=== PATIENT | male | born 1960 | race Caucasian/White ===

== ENCOUNTER 2018-02-23 05:24 | Observation (INO) | payer OTHER ==
--- NOTE | 2018-02-23 06:05 | PDOC ---
History of Present Illness - General Chief Complaint: Pain Stated Complaint: BACK PAIN Time Seen by Provider: 02/23/18 05:28 History Source: Patient - History of Present Illness Initial Comments: 02/23/18 05:47 57 year old male released from [facility] one month ago reports now without any of his medication. patient is requesting a refill of all his medication and social work help in getting his medications. as per patient insurance denied refill. patient reports that he has generalized jointpain , b/ l toenail infection. patient reports that he called Dr. Reyes for medication refill and was advised to come to the office today for social work evaluation, Patient decided to come to ED for evaluation. PMD: Karen Reyes Past History - Past Medical History Allergies/Adverse Reactions: Allergies Allergy/AdvReac Type Severity Reaction Status Date / Time No Known Allergies Allergy Verified 02/23/18 05:30 Home Medications: Ambulatory Orders Aspirin 81 mg PO DAILY 02/23/18 Atorvastatin Ca [Lipitor] 20 mg PO HS 02/23/18 Buprenorphine HCl [Belbuca] 150 mcg PO BID 02/23/18 Cetirizine HCl [Zyrtec -] 10 mg PO DAILY 02/23/18 Ergocalciferol [Vitamin D2] 50,000 unit PO Q7D@1000 02/23/18 Fluticasone Propionate [Flonase Allergy Relief] 2 spr NS DAILY 02/23/18 Humulin R U-500 Kwikpen 0 unit SUBD ASDIR 02/23/18 Insulin Glargine,Hum.rec.anlog [Basaglar Kwikpen U-100] 5 unit SQ HS 02/23/18 Turmeric/Turmeric Root Extract [Turmeric 500 mg Capsule] 500 mg PO QID 02/23/18 Atorvastatin Ca [Lipitor] 20 mg PO HS #30 tablet 02/24/18 Carbidopa/Levodopa *Cr* 25/100 [Sinemet *Cr* 25/100 -] 1 combo PO TID #120 tablet.er 02/24/18 Divalproex [Depakote -] 2,000 mg PO HS #30 tablet.ec 02/24/18 Docusate Sodium [Colace -] 300 mg PO HS #60 capsule 02/24/18 Metformin HCl [Glucophage] 500 mg PO BID #60 tablet 02/24/18 Quetiapine Fumarate [Seroquel -] 25 mg PO HS #30 tablet 02/24/18 Quinapril HCl [Accupril -] 20 mg PO BID #30 tablet 02/24/18 Trazodone HCl 100 mg PO HS #30 tablet 02/24/18 propRANOLol HCL [Inderal -] 20 mg PO BID #60 tablet 02/24/18 COPD: No Diabetes: Yes HTN: Yes Hypercholesterolemia: Yes Psychiatric Problems: Yes (bipolar disorder) Other medical history: parkinson's disease - Suicide/Smoking/Psychosocial Hx Smoking History: Never smoked Hx Alcohol Use: No (ETOH ) Drug/Substance Use Hx: No (crack ) Review of Systems - Review of Systems Able to Perform ROS?: Yes Is the patient limited Irish proficient: No Constitutional: No: Symptoms Reported, See HPI, Chills, Diaphoresis, Fever, Loss of Appetite, Malaise, Night Sweats, Weakness, Weight Stable, Unintentional Wgt. Loss, Unexplained wgt Loss, Other Musculoskeletal: Yes: Joint Pain (generalized) *Physical Exam - Vital Signs Last Vital Signs Temp Pulse Resp BP Pulse Ox 98.4 F 88 16 154/81 97 02/23/18 05:31 02/23/18 05:31 02/23/18 05:31 02/23/18 05:31 02/23/18 05:31 - Physical Exam General Appearance: Yes: Appropriately Dressed, Other (flighted thoughts) Respiratory/Chest: positive: Lungs Clear, Normal Breath Sounds Cardiovascular: positive: Regular Rhythm, Regular Rate Gastrointestinal/Abdominal: positive: Normal Bowel Sounds, Soft Musculoskeletal: positive: Normal Inspection, Other (able to weightbear without difficulty). negative: Vertebral Tenderness Extremity: positive: Normal Capillary Refill, Normal Inspection, Normal Range of Motion, Other (+ dark colored nails. ) Integumentary: positive: Normal Color, Dry, Warm Neurologic: positive: Fully Oriented, Alert ED Treatment Course - LABORATORY CBC & Chemistry Diagram: 02/24/18 06:00 02/24/18 06:00 Medical Decision Making - Medical Decision Making 02/23/18 06:26 A: medication refill P: pending social work evaluation patient signed out to [facility] *DC/Admit/Observation/Transfer Diagnosis at time of Disposition: Medication refill, Confusion Joint pain Qualifiers: Joint pain location: hip Laterality: unspecified laterality Qualified Code(s): M25.559 - Pain in unspecified hip Falls Qualifiers: Encounter type: initial encounter Qualified Code(s): W19.XXXA - Unspecified fall, initial encounter Chest pain Qualifiers: Chest pain type: unspecified Qualified Code(s): R07.9 - Chest pain, unspecified - Discharge Dispostion Disposition: HOME Condition at time of disposition: Stable - Prescriptions - Referrals - Patient Instructions - Post Discharge Activity
[2018-02-23] MEDS ORDERED: INSULIN REGULAR HUMAN 100 UNITS/ML *VIAL SQ ONE ×2 (06:32→11:12)
[2018-02-23] MEDS ORDERED: INSULIN REGULAR HUMAN 100 UNITS/ML *VIAL ONE ×2 (06:36→13:23)
--- NOTE | 2018-02-23 06:56 | PDOC ---
*Physical Exam - Vital Signs Last Vital Signs Temp Pulse Resp BP Pulse Ox 98.4 F 88 16 154/81 97 02/23/18 05:31 02/23/18 05:31 02/23/18 05:31 02/23/18 05:31 02/23/18 05:31 ED Treatment Course - ADDITIONAL ORDERS Additional order review: Laboratory Results 02/23/18 06:31 POC Glucometer [id number] 02/23/18 06:31 POC Glucometer [id number] - Medications Given in the ED: ED Medications Discontinued Medications Generic Name Dose Route Start Last Admin Trade Name Freq PRN Reason Stop Dose Admin Insulin Human Regular 4 units 02/23/18 06:32 02/23/18 06:38 Novolin R Vial *For Ivpush Or Iv Drip Only* SQ 02/23/18 06:33 4 units ONCE ONE Administration Medical Decision Making - Medical Decision Making 02/23/18 06:55 agree with care from GERSON Drummond *DC/Admit/Observation/Transfer Diagnosis at time of Disposition: Medication refill Joint pain Qualifiers: Joint pain location: hip Laterality: unspecified laterality Qualified Code(s): M25.559 - Pain in unspecified hip - Referrals Referrals: Karen Reyes MD [Primary Care Provider] - - Patient Instructions - Post Discharge Activity
--- NOTE | 2018-02-23 06:58 | PDOC ---
*Physical Exam - Vital Signs Last Vital Signs Temp Pulse Resp BP Pulse Ox 98.4 F 88 16 154/81 97 02/23/18 05:31 02/23/18 05:31 02/23/18 05:31 02/23/18 05:31 02/23/18 05:31 ED Treatment Course - LABORATORY CBC & Chemistry Diagram: 02/23/18 09:30 02/23/18 09:30 - ADDITIONAL ORDERS Additional order review: Laboratory Results 02/23/18 06:31 POC Glucometer [id number] 02/23/18 06:31 POC Glucometer 223.14582 - Medications Given in the ED: ED Medications Discontinued Medications Generic Name Dose Route Start Last Admin Trade Name Freq PRN Reason Stop Dose Admin Insulin Human Regular 4 units 02/23/18 06:32 02/23/18 06:38 Novolin R Vial *For Ivpush Or Iv Drip Only* SQ 02/23/18 06:33 4 units ONCE ONE Administration Medical Decision Making - Medical Decision Making 02/23/18 07:02 Sign out received from Kaylin Drummond NP. Pt comes from home stating that he has generalized pain and is out of all of his home medications. He states he was released from [facility] on 02/14/18 and they were supposed to refill his medication for longer than they did. States he won't be able to get a refill until 03/01/18 as insurance will not cover the new scripts. [facility] [employer]. 02/23/18 09:41 Spoke with pharmacist at [facility]. States that he picked up his Trazadone, Accupril, Buproprion, and propranolol and all were for written for 14 days. Also states that his Divalproex, Seroquil and humalin were refilled and picked up by another pharmacy. The pharmacist says even if we are to re- fill his medication insurance will not cover it as it is not time to pick it up yet. Will contact pts PCP for further information. 02/23/18 09:51 Pt. states he now has throbbing chest pain. Orders placed. Also complaining of headache. Tylenol given. Spoke with patient about possibly using another pharmacy. Pt. states he also uses [facility] for his mail away rx's. States that he doesn't think he received anything from them and also states that he had a recent change in address and is not sure if his mail is being forwarded correctly. 02/23/18 10:[address] Karen Reyes, pt. PCP. States that he is usually able to manage his home medications and seems confused to him. They have spoken multiple times on the phone yesterday and today. He also reports patient is falling at home which he has not done since before his rehab stint. He is concerned that he is altered and would like the patient placed in observation for neurology consult and social work issues. Pt. is newly diagnosed with Parkingson's. Added head CT to work up. At this time I suspect pt is confused about how to take his home medications and that he may be taking them incorrectly. 02/23/18 11:26 EKG: Rate 71, Sinus Rhythm. Incomplete RBBB, Normal intervals. No acute ST-T wave changes. Incomplete RBBB is new 02/23/18 13:[address] with microischemic changes , no acute pathology Lab work is unremarkable with the exception of an elevated blood glucose in the 200's. Insulin sliding scale given to cover Hospitalist paged for obs placement. 02/23/18 14:06 Spoke with Rita Marquis NP. Case discussed and will accept pt. to tele obs. *DC/Admit/Observation/Transfer Diagnosis at time of Disposition: Medication refill, Confusion Joint pain Qualifiers: Joint pain location: hip Laterality: unspecified laterality Qualified Code(s): M25.559 - Pain in unspecified hip Falls Qualifiers: Encounter type: initial encounter Qualified Code(s): W19.XXXA - Unspecified fall, initial encounter Chest pain Qualifiers: Chest pain type: unspecified Qualified Code(s): R07.9 - Chest pain, unspecified - Discharge Dispostion Condition at time of disposition: Guarded Decision to Admit order: Yes - Referrals - Patient Instructions - Post Discharge Activity
[2018-02-23] MEDS ORDERED: ACETAMINOPHEN 325 MG TABLET (FP) PO ONE (09:51)
[2018-02-23] MEDS ORDERED: ACETAMINOPHEN 325 MG TABLET (FP) ONE (09:58)
[2018-02-23 10:27] LABS: BASO % 0.7 % (0-2.0); EOS % 1.1 % (0-4.5); HEMATOCRIT 39.8 % (35.4-49); HEMOGLOBIN 13.3 GM/dL (11.7-16.9); LYMPH % 22.3 % (8-40); MCH 29.8 pg (25.7-33.7); MCHC 33.4 g/dl (32.0-35.9); MEAN CELL VOLUME 89.4 fl (80-96); MEAN PLT VOLUME 10.3 fl (7.5-11.1); MONO % 11.6 % (3.8-10.2); NEUT % 64.3 % (42.8-82.8); PLATELET COUNT 264 K/MM3 (134-434); RBC 4.45 M/mm3 (4.00-5.60); WHITE BLOOD COUNT 8.1 K/mm3 (4.0-10.0)
[2018-02-23 10:45] LABS: INR 1.01 (0.82-1.09); PROTHROMBIN TIME (PATIENT) 11.4 SEC (9.7-13.0)
[2018-02-23 10:54] LABS: ALBUMIN 3.7 g/dl (3.4-5.0); ANION GAP 11 (8-16); BILIRUBIN,TOTAL 0.6 mg/dL (0.2-1.0); BLOOD UREA NITROGEN 17 mg/dL (7-18); CALCIUM 9.1 mg/dL (8.5-10.1); CHLORIDE 104 mmol/L (98-107); CO2 22 mmol/L (21-32); CREATININE 0.9 mg/dL (0.7-1.3); GLUCOSE,RANDOM 271 mg/dL (74-106); MAGNESIUM 1.8 mg/dL (1.8-2.4); POTASSIUM 4.4 mmol/L (3.5-5.1); SGOT/AST 6 U/L (15-37); SGPT/ALT 14 U/L (12-78); SODIUM 137 mmol/L (136-145)
[2018-02-23 10:58] LABS: ALK PHOS 71 U/L (45-117)
--- NOTE | 2018-02-23 11:55 | EKG ---
Test Reason : Blood Pressure : / mmHG Vent. Rate : 071 BPM Atrial Rate : 071 BPM P-R Int : 158 ms QRS Dur : 108 ms QT Int : 402 ms P-R-T Axes : 045 -22 019 degrees QTc Int : 436 ms NORMAL SINUS RHYTHM POSSIBLE LEFT ATRIAL ENLARGEMENT INCOMPLETE RIGHT BUNDLE BRANCH BLOCK BORDERLINE ECG NO PREVIOUS ECGS AVAILABLE Confirmed by ISAC ROYAL, ERUM ([id number]) on 02/23/2018 11:55:19 AM Referred By: Confirmed By:ERUM CHAU MD
--- NOTE | 2018-02-23 15:05 | HP ---
CHIEF COMPLAINT: chest pain, palpitations, confusion PCP: Dr. Karen Reyes, PCP HISTORY OF PRESENT ILLNESS: Patient is a 57 year old male with a significant past medical history of Parkinson Disease (recently diagnosed), high cholesterol, bipolar disorder, hypertension, diabetes and COPD. He presents to the ED today and was noted to have some confusion. He originally came to the ED over concern that his medications were not prescribed correctly from the rehab facility and had run out of medications. In the ED, patient's PCP was called and was concerned over patient's confusion. Patient was recently released from [facility]. Further, in the ED patient c/o of chest pain and palpitations and was found to have a RBBB on EKG. He was admitted for further observation. A CT scan of head done in the ED shows moderate atrophy and mild chronic microvascular ischemic disease changes. No gross evidence of a focal intracranial lesion or hemorrhage is seen. ER course was notable for: (1) negative trops (2) Head ct, mod atrophy (3) Recent Travel: denies PAST MEDICAL HISTORY: Parkinson Disease (recently diagnosed), high cholesterol , bipolar disorder, hypertension, diabetes and COPD. PAST SURGICAL HISTORY: Social History: Smoking: n/a Alcohol:n/a Drugs: n/a Family History: Allergies No Known Allergies Allergy (Verified 02/23/18 05:30) HOME MEDICATIONS: Home Medications Medication Instructions Recorded Aspirin 81 mg PO DAILY 02/23/18 Atorvastatin Ca [Lipitor] 20 mg PO HS 02/23/18 Atorvastatin Ca [Lipitor] 20 mg PO HS 02/23/18 Buprenorphine HCl [Belbuca] 150 mcg PO BID 02/23/18 Carbidopa/Levodopa *Cr* 25/100 1 combo PO TID 02/23/18 [Sinemet *Cr* 25/100 -] Cetirizine HCl [Zyrtec -] 10 mg PO DAILY 02/23/18 Cholecalciferol (Vitamin D3) 5,000 unit PO DAILY 02/23/18 [Vitamin D3] Divalproex Sodium [Divalproex 500 mg PO BID 02/23/18 Sodium ER] Divalproex [Depakote -] 2,000 mg PO HS 02/23/18 Docusate Sodium [Colace -] 300 mg PO HS 02/23/18 Ergocalciferol [Vitamin D2] 50,000 unit PO Q7D@1000 02/23/18 Fluticasone Propionate [Flonase 2 spr NS DAILY 02/23/18 Allergy Relief] Humulin R U-500 Kwikpen 0 unit SUBD ASDIR 02/23/18 Insulin Glargine,Hum.rec.anlog 5 unit SQ HS 02/23/18 [Basaglar Kwikpen U-100] Metformin HCl [Glucophage] 500 mg PO BID 02/23/18 Polyethylene Glycol 3350 [Miralax 17 gm PO DAILY 02/23/18 (For Daily Use) -] Quetiapine Fumarate [Seroquel -] 25 mg PO HS 02/23/18 Quinapril HCl [Accupril -] 20 mg PO BID 02/23/18 Trazodone HCl 100 mg PO HS 02/23/18 Turmeric/Turmeric Root Extract 500 mg PO QID 02/23/18 [Turmeric] propRANOLol HCL [Inderal] 20 mg PO BID 02/23/18 PHYSICAL EXAMINATION Vital Signs - 24 hr 02/23/18 05:31 Temperature 98.4 F Pulse Rate 88 Respiratory 16 Rate Blood Pressure 154/81 O2 Sat by Pulse 97 Oximetry (%) GENERAL: Awake, alert, and fully oriented, in no acute distress. HEAD: Normal with no signs of trauma. EYES: Pupils equal, round and reactive to light, extraocular movements intact, sclera anicteric, conjunctiva clear. No lid lag. EARS, NOSE, THROAT: Ears normal, nares patent, oropharynx clear without exudates. Moist mucous membranes. NECK: Normal range of motion, supple without lymphadenopathy, JVD, or masses. LUNGS: Breath sounds equal, clear to auscultation bilaterally. No wheezes, and no crackles. No accessory muscle use. HEART: Regular rate and rhythm ABDOMEN: Soft, nontender, not distended, normoactive bowel sounds, no guarding, no rebound, no masses. No hepatomegaly or splenomegaly. MUSCULOSKELETAL: Normal range of motion at all joints. No bony deformities or tenderness. No CVA tenderness. UPPER EXTREMITIES: 2+ pulses, warm, well-perfused. No cyanosis. No clubbing. No peripheral edema. LOWER EXTREMITIES: discolored toe nails, ambulates with RW, hx of parkinsons NEUROLOGICAL: hx of parkinsons PSYCHIATRIC: talkative, flight of ideas SKIN: Warm, dry, normal turgor, no rashes or lesions noted, normal capillary refill. Laboratory Results - last 24 hr 02/23/18 02/23/18 02/23/18 06:31 09:30 09:30 WBC 8.1 RBC 4.45 Hgb 13.3 Hct 39.8 MCV 89.4 MCH 29.8 MCHC 33.4 RDW 14.0 Plt Count 264 MPV 10.3 Neutrophils % 64.3 Lymphocytes % 22.3 Monocytes % 11.6 H Eosinophils % 1.1 Basophils % 0.7 PT with INR 11.40 INR 1.01 Sodium Potassium Chloride Carbon Dioxide Anion Gap BUN Creatinine Creat Clearance w eGFR POC Glucometer [id number] Random Glucose Calcium Magnesium Total Bilirubin AST ALT Alkaline Phosphatase Creatine Kinase Troponin I Total Protein Albumin 02/23/18 02/23/18 02/23/18 09:30 09:30 13:20 WBC RBC Hgb Hct MCV MCH MCHC RDW Plt Count MPV Neutrophils % Lymphocytes % Monocytes % Eosinophils % Basophils % PT with INR INR Sodium 137 Potassium 4.4 Chloride 104 Carbon Dioxide 22 Anion Gap 11 BUN 17 Creatinine 0.9 Creat Clearance w eGFR > 60 POC Glucometer 233.30250 Random Glucose 271 H Calcium 9.1 Magnesium 1.8 Total Bilirubin 0.6 AST 6 L ALT 14 Alkaline Phosphatase 71 Creatine Kinase 40 Cancelled Troponin I < 0.02 Cancelled Total Protein 7.0 Albumin 3.7 ASSESSMENT/PLAN: Patient is a 57 year old male with a significant past medical history of Parkinson Disease (recently diagnosed), high cholesterol, bipolar disorder, hypertension, diabetes and COPD. He presents to the ED today and was noted to have some confusion. He originally came to the ED over concern that his medications were not prescribed correctly from the rehab facility and had run out of medications. In the ED, patient's PCP was called and was concerned over patient's confusion. Patient was recently released from [facility]. Further, in the ED patient c/o of chest pain and palpitations and was found to have a RBBB on EKG. He was admitted for further observation. A CT scan of head done in the ED shows moderate atrophy and mild chronic microvascular ischemic disease changes. No gross evidence of a focal intracranial lesion or hemorrhage is seen. Neuro: Metabolic encephalopathy Mild confusion on admission, Head CT negative Mental status improved May be mis-managing home medications? Will repeat head CT in a.m. if confusion persists Neuro following On high doses of depakote Infectious workup ordered, BC, UC, UA WBC and vitals stable neuro following Parkinsons disease On Sinemet TID Ambulates with RW Cardiology: Chest pain EKG with new incomplete rbbb Trend troponins Echo Hypertension On saige inhibitor and Inderal F.E.N. fluids: PO adequate Electrolytes: daily labs Nutrition: diabetic diet Prophy: DVT: deferred, LOS < 48 hurs GI: deferred full code Hospitalist Screening - Colonoscopy Questionnaire Colonoscopy Questionnaire: Colonoscopy Questionnaire
--- NOTE | 2018-02-23 17:23 | CON.NEURO ---
Consult - History of Present Illness History of Present Illness: 57 year old male released from [facility] one month ago reports now without any of his medication. patient is requesting a refill of all his medication and social work help in getting his medications. as per patient insurance denied refill. patient reports that he has generalized joint, b/l toenail infection he states he has PD-- ? unclear who/when Dx-- he is adamant he has PD ; though very mild tremor and no cogwheeling. on multiple RX. - History Source History Provided By: Patient - Alcohol/Substance Use Hx Alcohol Use: No (ETOH '88) - Smoking History Smoking history: Never smoked Home Medications - Allergies Allergies/Adverse Reactions: Allergies Allergy/AdvReac Type Severity Reaction Status Date / Time No Known Allergies Allergy Verified 02/23/18 05:30 - Home Medications Home Medications: Ambulatory Orders Aspirin 81 mg PO DAILY 02/23/18 Atorvastatin Ca [Lipitor] 20 mg PO HS 02/23/18 Atorvastatin Ca [Lipitor] 20 mg PO HS 02/23/18 Buprenorphine HCl [Belbuca] 150 mcg PO BID 02/23/18 Carbidopa/Levodopa *Cr* 25/100 [Sinemet *Cr* 25/100 -] 1 combo PO TID 02/23/18 Cetirizine HCl [Zyrtec -] 10 mg PO DAILY 02/23/18 Cholecalciferol (Vitamin D3) [Vitamin D3] 5,000 unit PO DAILY 02/23/18 Divalproex Sodium [Divalproex Sodium ER] 500 mg PO BID 02/23/18 Divalproex [Depakote -] 2,000 mg PO HS 02/23/18 Docusate Sodium [Colace -] 300 mg PO HS 02/23/18 Ergocalciferol [Vitamin D2] 50,000 unit PO Q7D@1000 02/23/18 Fluticasone Propionate [Flonase Allergy Relief] 2 spr NS DAILY 02/23/18 Humulin R U-500 Kwikpen 0 unit SUBD ASDIR 02/23/18 Insulin Glargine,Hum.rec.anlog [Basaglar Kwikpen U-100] 5 unit SQ HS 02/23/18 Metformin HCl [Glucophage] 500 mg PO BID 02/23/18 Polyethylene Glycol 3350 [Miralax (For Daily Use) -] 17 gm PO DAILY 02/23/18 Quetiapine Fumarate [Seroquel -] 25 mg PO HS 02/23/18 Quinapril HCl [Accupril -] 20 mg PO BID 02/23/18 Trazodone HCl 100 mg PO HS 02/23/18 Turmeric/Turmeric Root Extract [Turmeric] 500 mg PO QID 02/23/18 propRANOLol HCL [Inderal] 20 mg PO BID 02/23/18 Physical Exam-Neuro Vital Signs: Vital Signs Temperature 98.2 F 02/23/18 15:31 Pulse Rate 95 H 02/23/18 15:31 Respiratory Rate 16 02/23/18 15:31 Blood Pressure 173/96 02/23/18 15:31 O2 Sat by Pulse Oximetry (%) 98 02/23/18 15:31 Constitutional: Yes: Well Nourished, No Distress Labs: CBC, BMP 02/23/18 09:30 02/23/18 09:30 INR, PTT INR 1.01 (0.82-1.09) 02/23/18 09:30 - Neuro Exam Level Of Consciousness: Yes: Alert (pressured, anxious and hyperverbose , mild tremo, no cogwheeling ) Assessment/Plan 57 year old male released from [facility] one month ago reports now without any of his medication. patient is requesting a refill of all his medication and social work help in getting his medications. as per patient insurance denied refill. patient reports that he has generalized joint, b/l toenail infection he states he has PD-- ? unclear who/when Dx-- he is adamant he has PD ; though very mild tremor and no cogwheeling. on multiple RX. suspect his tremor his RX related --depakote can commonly cause tremor (and he is taking a high dose ) he is adamant about getting his RX SINEMET--if absolutely necessary can continue dosing TID ; though his outpt doctor will have to eventually decide to continue or not. DR Crystal
[2018-02-23 18:00] VITALS: BMI 28.5
[2018-02-23] MEDS ORDERED: PNEUMOC 13-VAL CONJ-DIP CRM/PF 0.5 ML DISP.SYRIN IM ONE (18:00)
[2018-02-23] MEDS ORDERED: FLU VACCINE QUAD 60 MCG/0.5 ML (MDV 17-18) IM ONE (18:45)
[2018-02-23] MEDS ORDERED: PNEUMOCOCCAL 23 VACCINE 0.5 ML VIAL IM ONE (18:45)
[2018-02-23] MEDS ORDERED: traZODone HCL 50 MG TABLET (FP) ONE (21:10)
[2018-02-23] MEDS: QUINAPRIL HCL 20 MG TABLET (FP) PO SCH (21:27)
[2018-02-23] MEDS ORDERED: ACETAMINOPHEN 325 MG TABLET (FP) PO PRN (21:43)
[2018-02-23] MEDS ORDERED: QUEtiapine FUMARATE 25 MG TABLET (FP) PO SCH (22:00)
[2018-02-23] MEDS ORDERED: DIVALPROEX SODIUM 500 MG TABLET E.C. PO SCH (22:00)
[2018-02-23] MEDS ORDERED: ATORVASTATIN CA 20 MG TABLET (FP) PO SCH (22:00)
[2018-02-23] MEDS ORDERED: MELATONIN 5 MG TABLETS PO PRN (22:00)
[2018-02-23] MEDS ORDERED: traZODone HCL 100 MG TABLET (FP) PO SCH (22:00)
[2018-02-23] MEDS ORDERED: DIVALPROEX NA *ER* EXTEND REL 500 MG TABLET.SA (FP) PO SCH (22:00)
[2018-02-23] MEDS ORDERED: DOCUSATE SODIUM 100 MG CAPSULE (FP) PO SCH (22:00)
[2018-02-23] MEDS: INSULIN SLIDING SCALE (NOVOLOG) 1 VIAL SQ SCH (22:17)
[2018-02-23] MEDS: traMADol HCL 50 MG TABLET PO PRN (22:19)
[2018-02-24 06:10] LABS: BASO % 0.8 % (0-2.0); EOS % 3.1 % (0-4.5); HEMATOCRIT 35.7 % (35.4-49); HEMOGLOBIN 12.1 GM/dL (11.7-16.9); LYMPH % 34.2 % (8-40); MCH 30.9 pg (25.7-33.7); MCHC 33.9 g/dl (32.0-35.9); NEUT % 48.9 % (42.8-82.8); PLATELET COUNT 226 K/MM3 (134-434); RBC 3.92 M/mm3 (4.00-5.60); RDW 14.4 % (11.9-15.9); WHITE BLOOD COUNT 8.8 K/mm3 (4.0-10.0)
[2018-02-24] MEDS: INSULIN SLIDING SCALE (NOVOLOG) 1 VIAL SQ SCH ×2 (06:17→13:51)
[2018-02-24 07:19] LABS: CHLORIDE 106 mmol/L (98-107); POTASSIUM 4.7 mmol/L (3.5-5.1); SODIUM 140 mmol/L (136-145)
[2018-02-24 07:41] LABS: ALBUMIN 3.2 g/dl (3.4-5.0); ALK PHOS 59 U/L (45-117); ANION GAP 8 (8-16); BILIRUBIN,TOTAL 0.5 mg/dL (0.2-1.0); BLOOD UREA NITROGEN 16 mg/dL (7-18); CALCIUM 8.9 mg/dL (8.5-10.1); CO2 26 mmol/L (21-32); GLUCOSE,RANDOM 173 mg/dL (74-106); MAGNESIUM 1.9 mg/dL (1.8-2.4); SGPT/ALT 7 U/L (12-78); TOT PROT 6.2 g/dl (6.4-8.2)
[2018-02-24 07:51] LABS: SGOT/AST 4 U/L (15-37)
[2018-02-24 09:28] LABS: CHOLESTEROL 120 mg/dL (50-200); TRIGLYCERIDES 96 mg/dL (35-160)
[2018-02-24 09:29] LABS: HDL CHOLESTEROL 49 mg/dL (40-60)
[2018-02-24] MEDS ORDERED: PT OWN MED DRAWER 7, Y5N ONE (09:56)
[2018-02-24] MEDS ORDERED: CHOLECALCIFEROL (VITAMIN D3) 1,000 UNIT TABLET (FP) PO SCH (10:00)
[2018-02-24] MEDS: traMADol HCL 50 MG TABLET PO PRN (10:49)
[2018-02-24] MEDS: QUINAPRIL HCL 20 MG TABLET (FP) PO SCH ×2 (10:49→10:50)
--- NOTE | 2018-02-24 12:14 | CON.CARD ---
Cardiology Consult (text) - Consultation Consultation Note: cc: ran out of meds hpi: 57 m hx bipolar, dm, hld, htn, copd, parkinsons here because he ran out of meds. No cp, sob, palps, dizzy, loc, pnd, orhtopnea, le edema. No hx hrt dz. Ecg shows IRBBB so cardio called. pmh: per hpi psh:nc ros: per hpi; no nvd, fever, gib, hematuria dysuria cain, vision changes fam: no premature cad, scd social: no tob meds: Home Medications Medication Instructions Recorded Aspirin 81 mg PO DAILY 02/23/18 Atorvastatin Ca [Lipitor] 20 mg PO HS 02/23/18 Atorvastatin Ca [Lipitor] 20 mg PO HS 02/23/18 Buprenorphine HCl [Belbuca] 150 mcg PO BID 02/23/18 Carbidopa/Levodopa *Cr* 25/100 1 combo PO TID 02/23/18 [Sinemet *Cr* 25/100 -] Cetirizine HCl [Zyrtec -] 10 mg PO DAILY 02/23/18 Cholecalciferol (Vitamin D3) 5,000 unit PO DAILY 02/23/18 [Vitamin D3] Divalproex Sodium [Divalproex 500 mg PO BID 02/23/18 Sodium ER] Divalproex [Depakote -] 2,000 mg PO HS 02/23/18 Docusate Sodium [Colace -] 300 mg PO HS 02/23/18 Ergocalciferol [Vitamin D2] 50,000 unit PO Q7D@1000 02/23/18 Fluticasone Propionate [Flonase 2 spr NS DAILY 02/23/18 Allergy Relief] Humulin R U-500 Kwikpen 0 unit SUBD ASDIR 02/23/18 Insulin Glargine,Hum.rec.anlog 5 unit SQ HS 02/23/18 [Basaglar Kwikpen U-100] Metformin HCl [Glucophage] 500 mg PO BID 02/23/18 Polyethylene Glycol 3350 [Miralax 17 gm PO DAILY 02/23/18 (For Daily Use) -] Quetiapine Fumarate [Seroquel -] 25 mg PO HS 02/23/18 Quinapril HCl [Accupril -] 20 mg PO BID 02/23/18 Trazodone HCl 100 mg PO HS 02/23/18 Turmeric/Turmeric Root Extract 500 mg PO QID 02/23/18 [Turmeric] propRANOLol HCL [Inderal] 20 mg PO BID 02/23/18 pe: Vital Signs Period Temp Pulse Resp BP Sys/Irizarry Pulse Ox Last 24 Hr 97.6 F-98.4 F 66-98 16-22 120-173/70-97 96-100 nad no jvd rrr s1s2 nomrg cta bl nl eff aaox3 no le e/c/c abd nt nd pos bs no jaunidce dipahoresis pos dp pt no carotid bruits Laboratory Last Values WBC 8.8 K/mm3 (4.0-10.0) 02/24/18 06:00 RBC 3.92 M/mm3 (4.00-5.60) L 02/24/18 06:00 Hgb 12.1 GM/dL (11.7-16.9) 02/24/18 06:00 Hct 35.7 % (35.4-49) 02/24/18 06:00 MCV 91.0 fl (80-96) 02/24/18 06:00 MCH 30.9 pg (25.7-33.7) 02/24/18 06:00 MCHC 33.9 g/dl (32.0-35.9) 02/24/18 06:00 RDW 14.4 % (11.9-15.9) 02/24/18 06:00 Plt Count 226 K/MM3 (134-434) 02/24/18 06:00 MPV 10.0 fl (7.5-11.1) 02/24/18 06:00 Neutrophils % 48.9 % (42.8-82.8) D 02/24/18 06:00 Lymphocytes % 34.2 % (8-40) D 02/24/18 06:00 Monocytes % 13.0 % (3.8-10.2) H 02/24/18 06:00 Eosinophils % 3.1 % (0-4.5) D 02/24/18 06:00 Basophils % 0.8 % (0-2.0) 02/24/18 06:00 PT with INR 11.40 SEC (9.7-13.0) 02/23/18 09:30 INR 1.01 (0.82-1.09) 02/23/18 09:30 Sodium 140 mmol/L (136-145) 02/24/18 06:00 Potassium 4.7 mmol/L (3.5-5.1) 02/24/18 06:00 Chloride 106 mmol/L (98-107) 02/24/18 06:00 Carbon Dioxide 26 mmol/L (21-32) 02/24/18 06:00 Anion Gap 8 (8-16) 02/24/18 06:00 BUN 16 mg/dL (7-18) 02/24/18 06:00 Creatinine 1.0 mg/dL (0.7-1.3) 02/24/18 06:00 Creat Clearance w eGFR > 60 (>60) 02/24/18 06:00 POC Glucometer 214 UNITS (80-120) 02/24/18 05:10 Random Glucose 173 mg/dL (74-106) H D 02/24/18 06:00 Hemoglobin A1c % 7.7 % (4.8-6.0) H 02/24/18 06:00 Calcium 8.9 mg/dL (8.5-10.1) 02/24/18 06:00 Magnesium 1.9 mg/dL (1.8-2.4) 02/24/18 06:00 Total Bilirubin 0.5 mg/dL (0.2-1.0) 02/24/18 06:00 AST 4 U/L (15-37) L D 02/24/18 06:00 ALT 7 U/L (12-78) L D 02/24/18 06:00 Alkaline Phosphatase 59 U/L (45-117) 02/24/18 06:00 Creatine Kinase 49 IU/L (39-308) 02/24/18 04:00 Troponin I < 0.02 ng/ml (0.00-0.05) 02/24/18 04:00 Total Protein 6.2 g/dl (6.4-8.2) L 02/24/18 06:00 Albumin 3.2 g/dl (3.4-5.0) L 02/24/18 06:00 Triglycerides 96 mg/dL (35-160) 02/24/18 06:00 Cholesterol 120 mg/dL (50-200) 02/24/18 06:00 Total LDL Cholesterol 67 mg/dL (5-100) 02/24/18 06:00 HDL Cholesterol 49 mg/dL (40-60) 02/24/18 06:00 Vitamin B12 941 pg/ml (180-914) H 02/23/18 16:40 Serum Folate 19 ng/ml (3.1-17.5) H 02/23/18 16:40 TSH 1.88 uIU/ml (0.358-3.74) 02/24/18 06:00 Valproic Acid 4.722 ug/ml (50-100) L 02/23/18 16:40 tele: sr ecg: sr, nl intervals, IRBBB echo 02/2018: nl lvef, nl rv, mild lvh, mild lae, no sig valve path cxr: clear lungs a/p: 57 m hx bipolar, dm, hld, htn, copd, parkinsons here because he ran out of meds. abnl ecg: -ecg with IRBBB -echo unremarkable -no signs acs, no concerning cardiac sxs htn: -cont home meds hld: -cont statin cardiac regalado stable for dc
[2018-02-24] MEDS ORDERED: IBUPROFEN 400 MG TABLET (FP) PO ONE (12:36)
--- NOTE | 2018-02-24 12:37 | DS ---
Physical Exam: SUBJECTIVE: Patient seen and examined OBJECTIVE: Vital Signs Period Temp Pulse Resp BP Sys/Irizarry Pulse Ox Last 24 Hr 97.6 F-98.4 F 66-98 16-22 120-173/70-97 96-100 PHYSICAL EXAM GENERAL: The patient is awake, alert, and fully oriented, in no acute distress. HEAD: Normal with no signs of trauma. EYES: PERRL, extraocular movements intact, sclera anicteric, conjunctiva clear. ENT: Ears normal, nares patent, oropharynx clear without exudates, moist mucous membranes. NECK: Trachea midline, full range of motion, supple. LUNGS: Breath sounds equal, clear to auscultation bilaterally, no wheezes, no crackles, no accessory muscle use. HEART: Regular rate and rhythm, S1, S2 without murmur, rub or gallop. ABDOMEN: Soft, nontender, nondistended, normoactive bowel sounds, no guarding, no rebound, no hepatosplenomegaly, no masses. EXTREMITIES: 2+ pulses, warm, well-perfused, no edema. NEUROLOGICAL: Cranial nerves II through XII grossly intact. Normal speech, gait not observed. PSYCH: Normal mood, normal affect. SKIN: Warm, dry, normal turgor, no rashes or lesions noted. LABS Laboratory Results - last 24 hr 02/23/18 02/23/18 02/23/18 13:20 16:40 16:40 WBC RBC Hgb Hct MCV MCH MCHC RDW Plt Count MPV Neutrophils % Lymphocytes % Monocytes % Eosinophils % Basophils % Sodium Potassium Chloride Carbon Dioxide Anion Gap BUN Creatinine Creat Clearance w eGFR POC Glucometer [phone] Random Glucose Hemoglobin A1c % Calcium Magnesium Total Bilirubin AST ALT Alkaline Phosphatase Creatine Kinase Troponin I Total Protein Albumin Triglycerides Cholesterol Total LDL Cholesterol HDL Cholesterol Vitamin B12 941 H Serum Folate 19 H TSH Valproic Acid 4.722 L 02/23/18 02/24/18 02/24/18 21:26 04:00 05:10 WBC RBC Hgb Hct MCV MCH MCHC RDW Plt Count MPV Neutrophils % Lymphocytes % Monocytes % Eosinophils % Basophils % Sodium Potassium Chloride Carbon Dioxide Anion Gap BUN Creatinine Creat Clearance w eGFR POC Glucometer 243 214 Random Glucose Hemoglobin A1c % Calcium Magnesium Total Bilirubin AST ALT Alkaline Phosphatase Creatine Kinase 49 Troponin I < 0.02 Total Protein Albumin Triglycerides Cholesterol Total LDL Cholesterol HDL Cholesterol Vitamin B12 Serum Folate TSH Valproic Acid 02/24/18 02/24/18 02/24/18 06:00 06:00 06:00 WBC 8.8 RBC 3.92 L Hgb 12.1 Hct 35.7 MCV 91.0 MCH 30.9 MCHC 33.9 RDW 14.4 Plt Count 226 MPV 10.0 Neutrophils % 48.9 D Lymphocytes % 34.2 D Monocytes % 13.0 H Eosinophils % 3.1 D Basophils % 0.8 Sodium Potassium Chloride Carbon Dioxide Anion Gap BUN Creatinine Creat Clearance w eGFR POC Glucometer Random Glucose Hemoglobin A1c % 7.7 H Calcium Magnesium Total Bilirubin AST ALT Alkaline Phosphatase Creatine Kinase Troponin I Total Protein Albumin Triglycerides 96 Cholesterol 120 Total LDL Cholesterol 67 HDL Cholesterol 49 Vitamin B12 Serum Folate TSH Valproic Acid 02/24/18 06:00 WBC RBC Hgb Hct MCV MCH MCHC RDW Plt Count MPV Neutrophils % Lymphocytes % Monocytes % Eosinophils % Basophils % Sodium 140 Potassium 4.7 Chloride 106 Carbon Dioxide 26 Anion Gap 8 BUN 16 Creatinine 1.0 Creat Clearance w eGFR > 60 POC Glucometer Random Glucose 173 H D Hemoglobin A1c % Calcium 8.9 Magnesium 1.9 Total Bilirubin 0.5 AST 4 L D ALT 7 L D Alkaline Phosphatase 59 Creatine Kinase Troponin I Total Protein 6.2 L Albumin 3.2 L Triglycerides Cholesterol Total LDL Cholesterol HDL Cholesterol Vitamin B12 Serum Folate TSH 1.88 Valproic Acid HOSPITAL COURSE: Date of Admission:02/23/18 Date of Discharge: 02/24/18 Patient is a 57 year old male with a significant past medical history of Parkinson Disease (recently diagnosed), high cholesterol, bipolar disorder, hypertension, diabetes and COPD. He presents to the ED today and was noted to have some confusion. He originally came to the ED over concern that his medications were not prescribed correctly from the rehab facility and had run out of medications. In the ED, patient's PCP was called and was concerned over patient's confusion. Patient was recently released from [facility]. Further, in the ED patient c/o of chest pain and palpitations and was found to have a RBBB on EKG. He was admitted for further observation. A CT scan of head done in the ED shows moderate atrophy and mild chronic microvascular ischemic disease changes, a repeat head CT done prior to admission with no changes. No gross evidence of a focal intracranial lesion or hemorrhage is seen. Discharge plan: Medications called into pharmacy Patient is paying out of pocket for Seroquel and Depakote, has his other meds at home Cleared by cardiology for discharge, chest pain has resolved, echo negative, troponins negative Seen by neurology during hospitalization Patient has physical exam scheduled with his PCP on March 16. Chest pain (Acute) - resolved Confusion (Acute) - resolved, mental status at baseline No confusion or agitation here Falls (Acute) - ambulates with RW, refusing VNS for home follow up/or physical therapy Joint pain (Acute) - Tylenol as needed Medication refill (Acute) - Medications called into pharmacy. Patient confirms that he has all his medications at home except for seroquel and depakote. He is willing to go to [facility] and fruit or nut picker a 12 day supply until he sees his PCP. Disposition: discharge home with PCP follow up. Discharge Summary Reason For Visit: CONFUSION; CHEST PAIN; FALL Current Active Problems Chest pain (Acute) Confusion (Acute) Falls (Acute) Joint pain (Acute) Medication refill (Acute) Condition: Stable - Instructions Diet, Activity, Other Instructions: Mr Mckeon: Please see Dr. Reyes on March 16 for a complete physical. You were treated for chest pain and a cardiac workup was negative. You were also seen by a Neurologist and a consult has been sent in your discharge packet. You also had two Head CT scans which were both negative. I have called in your medications to you pharmacy to hold you over until you see your primary doctor. Please call us with any questions that you may have. Referrals: Karen Reyes MD [Primary Care Provider] - Mati Crystal DO [Staff Physician] - Francesca Christie DPM [Staff Physician] - (checker in, please call his office to make an appointment. ) Disposition: HOME - Home Medications Comprehensive Discharge Medication List: Ambulatory Orders Aspirin 81 mg PO DAILY 02/23/18 Atorvastatin Ca [Lipitor] 20 mg PO HS 02/23/18 Atorvastatin Ca [Lipitor] 20 mg PO HS 02/23/18 Buprenorphine HCl [Belbuca] 150 mcg PO BID 02/23/18 Carbidopa/Levodopa *Cr* 25/100 [Sinemet *Cr* 25/100 -] 1 combo PO TID 02/23/18 Cetirizine HCl [Zyrtec -] 10 mg PO DAILY 02/23/18 Cholecalciferol (Vitamin D3) [Vitamin D3] 5,000 unit PO DAILY 02/23/18 Divalproex Sodium [Divalproex Sodium ER] 500 mg PO BID 02/23/18 Divalproex [Depakote -] 2,000 mg PO HS 02/23/18 Docusate Sodium [Colace -] 300 mg PO HS 02/23/18 Ergocalciferol [Vitamin D2] 50,000 unit PO Q7D@1000 02/23/18 Fluticasone Propionate [Flonase Allergy Relief] 2 spr NS DAILY 02/23/18 Humulin R U-500 Kwikpen 0 unit SUBD ASDIR 02/23/18 Insulin Glargine,Hum.rec.anlog [Basaglar Kwikpen U-100] 5 unit SQ HS 02/23/18 Metformin HCl [Glucophage] 500 mg PO BID 02/23/18 Polyethylene Glycol 3350 [Miralax (For Daily Use) -] 17 gm PO DAILY 02/23/18 Quetiapine Fumarate [Seroquel -] 25 mg PO HS 02/23/18 Quinapril HCl [Accupril -] 20 mg PO BID 02/23/18 Trazodone HCl 100 mg PO HS 02/23/18 Turmeric/Turmeric Root Extract [Turmeric] 500 mg PO QID 02/23/18 propRANOLol HCL [Inderal] 20 mg PO BID 02/23/18
[2018-02-24 13:59] VITALS: BP 118/55; PULSE 88; TEMP 98.2
== END 2018-02-24 16:45 | disposition home or self-care (01) ==
LOC: JER 05:24 → SUPCPDRO 05:24 → JERBED 14:13 → J4W 16:22
PROVIDERS: ADMIT Internal Medicine; ATTEND Nurse Practitioner Family
PROC: 3E013VG Introduction of Insulin into Subcutaneous Tissue, Percutaneous Approach (ICD-10-PCS; principal; 2018-02-23)
DX: Z76.0 Encounter for issue of repeat prescription (principal); R41.0 Disorientation, unspecified; R07.9 Chest pain, unspecified; M25.559 Pain in unspecified hip; I45.10 Unspecified right bundle-branch block; W19.XXXA Unspecified fall, initial encounter; Z91.81 History of falling; Y93.9 Activity, unspecified; Y92.009 Unspecified place in unspecified non-institutional (private) residence as the place of occurrence of the external cause; G93.41 Metabolic encephalopathy; I10 Essential (primary) hypertension; E78.5 Hyperlipidemia, unspecified; E11.9 Type 2 diabetes mellitus without complications; F31.9 Bipolar disorder, unspecified; G20 Parkinson's disease; J44.9 Chronic obstructive pulmonary disease, unspecified; Z79.4 Long term (current) use of insulin; Z79.82 Long term (current) use of aspirin; Z79.84 Long term (current) use of oral hypoglycemic drugs
CPT/HCPCS: 36415; 70450-TC; 71046-TC-FY; 80053; 80061; 80164; 82550; 82607; 82746; 82962; 83036; 83721; 83735; 84443; 84484; 85025; 85610; 87040; 90688; 90732; 93005; 93010; 93306-TC; 93880-TC; 96372; 99285-25; G0009; G0378

== ENCOUNTER 2018-03-04 07:40 | Observation (INO) | payer OTHER ==
[2018-03-04 07:58] VITALS: BMI 29.3
--- NOTE | 2018-03-04 08:02 | PDOC ---
History of Present Illness - General Stated Complaint: UNABLE TO WALK Time Seen by Provider: 03/04/18 07:58 - History of Present Illness Initial Comments: 03/04/18 08:02 Mr. Mckeon is a 57 yo male w/ pmh of Parkinson Disease, HLD, Bipolar disorder, HTN , DM, and COPD who presents by ambulance after he was unable to get off the cough this morning. He reports he has had increasing weakness lately and decided it was time to get evaluated due to his inability to arise. He also reports he has not been taking his medications lately as he is unable to get them filled until the . The patient denies chest pain, shortness of breath, headache and dizziness. Denies fever, chills, nausea, vomit, diarrhea and constipation. Denies dysuria, frequency, urgency and hematuria. Allergies: NKDA PCP: Karen Ortega Past History - Past Medical History Allergies/Adverse Reactions: Allergies Allergy/AdvReac Type Severity Reaction Status Date / Time No Known Allergies Allergy Verified 03/04/18 07:52 Home Medications: Ambulatory Orders Aspirin 81 mg PO DAILY 02/23/18 Atorvastatin Ca [Lipitor] 20 mg PO HS 02/23/18 Buprenorphine HCl [Belbuca] 150 mcg PO BID 02/23/18 Cetirizine HCl [Zyrtec -] 10 mg PO DAILY 02/23/18 Ergocalciferol [Vitamin D2] 50,000 unit PO Q7D@1000 02/23/18 Fluticasone Propionate [Flonase Allergy Relief] 2 spr NS DAILY 02/23/18 Humulin R U-500 Kwikpen 0 unit SUBD ASDIR 02/23/18 Insulin Glargine,Hum.rec.anlog [Basaglar Kwikpen U-100] 5 unit SQ HS 02/23/18 Turmeric/Turmeric Root Extract [Turmeric 500 mg Capsule] 500 mg PO QID 02/23/18 Atorvastatin Ca [Lipitor] 20 mg PO HS #30 tablet 02/24/18 Carbidopa/Levodopa *Cr* 25/100 [Sinemet *Cr* 25/100 -] 1 combo PO TID #120 tablet.er 02/24/18 Divalproex [Depakote -] 2,000 mg PO HS #30 tablet.ec 02/24/18 Docusate Sodium [Colace -] 300 mg PO HS #60 capsule 02/24/18 Metformin HCl [Glucophage] 500 mg PO BID #60 tablet 02/24/18 Quetiapine Fumarate [Seroquel -] 25 mg PO HS #30 tablet 02/24/18 Quinapril HCl [Accupril -] 20 mg PO BID #30 tablet 02/24/18 Trazodone HCl 100 mg PO HS #30 tablet 02/24/18 propRANOLol HCL [Inderal -] 20 mg PO BID #60 tablet 02/24/18 Anemia: No Asthma: No COPD: No Diabetes: Yes HTN: Yes Hypercholesterolemia: Yes Psychiatric Problems: Yes (bipolar disorder) - Immunization History Immunization Up to Date: Yes - Suicide/Smoking/Psychosocial Hx Smoking History: Never smoked Have you smoked in the past 12 months: No Hx Alcohol Use: No Drug/Substance Use Hx: No Substance Use Type: None Hx Substance Use Treatment: No Review of Systems - Review of Systems Comments:: 03/04/18 08:03 GENERAL/CONSTITUTIONAL: No fever or chills. No weakness. HEAD, EYES, EARS, NOSE AND THROAT: No change in vision. No ear pain or discharge. No sore throat. CARDIOVASCULAR: No chest pain or shortness of breath RESPIRATORY: No cough, wheezing, or hemoptysis. GASTROINTESTINAL: No nausea, vomiting, diarrhea or constipation. GENITOURINARY: No dysuria, frequency, or change in urination. MUSCULOSKELETAL: No joint or muscle swelling or pain. No neck or back pain. SKIN: No rash NEUROLOGIC: No headache, vertigo, loss of consciousness, or change in strength/ sensation. ENDOCRINE: No increased thirst. No abnormal weight change HEMATOLOGIC/LYMPHATIC: No anemia, easy bleeding, or history of blood clots. ALLERGIC/IMMUNOLOGIC: No hives or skin allergy. *Physical Exam - Vital Signs Last Vital Signs Temp Pulse Resp BP Pulse Ox 98.6 F 83 15 166/92 100 03/04/18 07:55 03/04/18 07:55 03/04/18 07:55 03/04/18 07:55 03/04/18 07:55 - Physical Exam Comments: 03/04/18 08:03 GENERAL: Awake, alert, and fully oriented, in no acute distress HEAD: No signs of trauma, normocephalic, atraumatic EYES: PERRLA, EOMI, sclera anicteric, conjunctiva clear ENT: Auricles normal inspection, hearing grossly normal, nares patent, oropharynx clear without exudates. Moist mucosa NECK: Normal ROM, supple, no lymphadenopathy, JVD, or masses LUNGS: No distress, speaks full sentences, clear to auscultation bilaterally HEART: Regular rate and rhythm, normal S1 and S2, no murmurs, rubs or gallops, peripheral pulses normal and equal bilaterally. ABDOMEN: Soft, nontender, normoactive bowel sounds. No guarding, no rebound. No masses EXTREMITIES: Normal inspection, Normal range of motion, no edema. No clubbing or cyanosis. NEUROLOGICAL: Cranial nerves II through XII grossly intact. Normal speech, normal gait, no focal sensorimotor deficits SKIN: Warm, Dry, normal turgor, no rashes or lesions noted. ED Treatment Course - LABORATORY CBC & Chemistry Diagram: 03/04/18 08:45 03/04/18 08:45 Medical Decision Making - Medical Decision Making 03/04/18 08:58 Mr. Mckeon is a 57 yo male w/ pmh as described who presents for evaluation of increasing weakness. Patient shows poor insight into condition and reports he has had difficulty taking medications of late. 03/04/18 10:14 Discussed with primary team who reports patient has had multiple falls lately. Patient confirms. Lumbar/sacral XR ordered for further evaluation. 03/04/18 10:55 Inpatient team paged for admission for observation and PT evaluation for difficulty ambulating. *DC/Admit/Observation/Transfer Diagnosis at time of Disposition: Unable to ambulate Falls Qualifiers: Encounter type: initial encounter Qualified Code(s): W19.XXXA - Unspecified fall, initial encounter - Discharge Dispostion Decision to Admit order: Yes - Referrals Referrals: Karen Reyes MD [Primary Care Provider] - - Patient Instructions - Post Discharge Activity
[2018-03-04 08:58] LABS: BASO % 0.8 % (0-2.0); EOS % 0.9 % (0-4.5); HEMATOCRIT 37.7 % (35.4-49); HEMOGLOBIN 12.6 GM/dL (11.7-16.9); LYMPH % 16.1 % (8-40); MCHC 33.5 g/dl (32.0-35.9); MEAN CELL VOLUME 89.7 fl (80-96); MEAN PLT VOLUME 10.1 fl (7.5-11.1); MONO % 7.7 % (3.8-10.2); NEUT % 74.5 % (42.8-82.8); PLATELET COUNT 215 K/MM3 (134-434); RDW 13.3 % (11.9-15.9); WHITE BLOOD COUNT 9.2 K/mm3 (4.0-10.0)
[2018-03-04 09:25] LABS: ALBUMIN 3.1 g/dl (3.4-5.0); ANION GAP 6 (8-16); BLOOD UREA NITROGEN 8 mg/dL (7-18); CALCIUM 8.7 mg/dL (8.5-10.1); CHLORIDE 106 mmol/L (98-107); CO2 28 mmol/L (21-32); GLUCOSE,RANDOM 140 mg/dL (74-106); POTASSIUM 4.3 mmol/L (3.5-5.1); SODIUM 140 mmol/L (136-145)
[2018-03-04 09:31] LABS: ALK PHOS 70 U/L (45-117); BILIRUBIN,TOTAL 0.4 mg/dL (0.2-1.0); CREATININE 0.7 mg/dL (0.7-1.3); SGOT/AST 7 U/L (15-37); SGPT/ALT 9 U/L (12-78); TOT PROT 6.4 g/dl (6.4-8.2)
--- NOTE | 2018-03-04 09:37 | PDOC ---
Attending Attestation - HPI HPI: 03/04/18 10:13 The patient is a 57 year old male with a past medical history of Parkinson Disease, HLD, Bipolar disorder, HTN, DM, COPD, Sciatica, and herniated disc, who presents by ambulance for generalized weakness since this morning. The patient reports that he has fallen twice in the last 3 days but denies any head trauma or loss of concioussness during his falls. He also reports non- compliance with medications secondary to inability to get them filled until the . The patient denies chest pain, shortness of breath, headache and dizziness. Denies fever, chills, nausea, vomit, diarrhea and constipation. Denies dysuria, frequency, urgency and hematuria. Denies any recent course of antibiotics. Allergies: NKDA PCP: Karen Ortega - Physicial Exam PE: 03/04/18 10:27 GENERAL: (+) Awake, alert, and fully oriented, in no acute distress. Generalized weakness HEAD: No signs of trauma EYES: PERRLA, EOMI, sclera anicteric, conjunctiva clear ENT: Auricles normal inspection, hearing grossly normal, nares patent, oropharynx clear without exudates. Moist mucosa NECK: Normal ROM, supple, no lymphadenopathy, JVD, or masses LUNGS: Breath sounds equal, clear to auscultation bilaterally. No wheezes, and no crackles HEART: Regular rate and rhythm, normal S1 and S2, no murmurs, rubs or gallops ABDOMEN: Soft, nontender, normoactive bowel sounds. No guarding, no rebound. No masses EXTREMITIES: Normal range of motion, no edema. No clubbing or cyanosis. No cords, erythema, or tenderness NEUROLOGICAL: (+) Cranial nerves II through XII grossly intact. Normal speech, only able to ambulate with assistance SKIN: Warm, Dry, normal turgor, no rashes or lesions noted. - Medical Decision Making 03/04/18 10:16 Documentation prepared by Chapito Berry, acting as medical collections for Ashley Almeida DO. <Chapito Berry - Last Filed: 03/04/18 10:27> - Resident Resident Name: Isaiah Mcintyre - ED Attending Attestation I have performed the following: I have examined & evaluated the patient, The case was reviewed & discussed with the resident, I agree w/resident's findings & plan, Exceptions are as noted - Medical Decision Making 03/04/18 09:36 I, Dr. Ashley Almeida, DO, attest that this document has been prepared under my direction and personally reviewed by me in its entirety. I further attest, that it accurately reflects all work, treatment, procedures and medical decision -making performed by me. 03/04/18 10:09 a/p: 57yo male with generalized weakness and fall x 2 yesterday -denies infectious symptoms other than soft stool and cough - nonproductive no f/c denies dysuria states he may have parkinsons has been off some of his meds since leaving rehab bc medicare hasn't filled his rx pt generally weak without focal neuro deficits will check labs, ua, ekg, cxr requires assistance with ambulation will need PT eval <Ashley Almeida - Last Filed: 03/04/18 10:32> Heart Score/ECG Review - ECG Intrepretation Comment:: 03/04/18 10:32 sinus at 75, nl axis, nl interval, no acute st/t wave findings <Ashley Almeida - Last Filed: 03/04/18 10:32>
[2018-03-04 10:38] LABS: URINE APPEARANCE CLEAR; URINE BILIRUBIN NEGATIVE (<2.0 mg/dL); URINE COLOR YELLOW; URINE GLUCOSE (UA) 2+ (NEGATIVE); URINE KETONE 1+ (NEGATIVE); URINE LEUK ESTERASE NEGATIVE (NEGATIVE); URINE NITRITE NEGATIVE (NEGATIVE); URINE PROTEIN NEGATIVE (NEGATIVE); URINE UROBILINOGEN 4.0 E.U/dl mg/dL (0.2-1.0)
--- NOTE | 2018-03-04 14:31 | HP ---
CHIEF COMPLAINT: frequent falls. PCP: Karen Ortega HISTORY OF PRESENT ILLNESS: 57 year old male with a past medical history of Parkinson Disease, HLD, Bipolar disorder, HTN, DM, COPD, Sciatica, and herniated disc, who presents by ambulance for generalized weakness since this morning. He states that he was recently discharged from rehab facility earlier this month and since then his functional status has declined. He states that his gait has been unsteady 2/2 LE weakness with associated groin pain. He describes 8/10 bilateral intermittent groin pain for the past week that is worse on movement and goes away while lying down. The patient reports that he has fallen twice in the last 3 days but denies any head trauma or loss of consciousness.He also reports non- compliance with medications secondary to inability to get them filled until the of this month. ER course was notable for: (1)EKG showed NSR, normal axis with no ST or T wave changes. (2)CBC and CMP WNL (3)Inability to ambulate w/o assistance. Recent Travel: denies PAST MEDICAL HISTORY: Parkinson Disease (recently diagnosed), HLD, bipolar disorder, HTN, IDDM and COPD. PAST SURGICAL HISTORY: Social History: Smoking: never Alcohol:denies Drugs: denies Family History: Allergies No Known Allergies Allergy (Verified 03/04/18 07:52) HOME MEDICATIONS: Home Medications Medication Instructions Recorded Aspirin 81 mg PO DAILY 02/23/18 Atorvastatin Ca [Lipitor] 20 mg PO HS 02/23/18 Buprenorphine HCl [Belbuca] 150 mcg PO BID 02/23/18 Cetirizine HCl [Zyrtec -] 10 mg PO DAILY 02/23/18 Ergocalciferol [Vitamin D2] 50,000 unit PO Q7D@1000 02/23/18 Fluticasone Propionate [Flonase 2 spr NS DAILY 02/23/18 Allergy Relief] Humulin R U-500 Kwikpen 0 unit SUBD ASDIR 02/23/18 Insulin Glargine,Hum.rec.anlog 5 unit SQ HS 02/23/18 [Basaglar Kwikpen U-100] Turmeric/Turmeric Root Extract 500 mg PO QID 02/23/18 [Turmeric 500 mg Capsule] Atorvastatin Ca [Lipitor] 20 mg PO HS #30 tablet 02/24/18 Carbidopa/Levodopa *Cr* 25/100 1 combo PO TID #120 tablet.er 02/24/18 [Sinemet *Cr* 25/100 -] Divalproex [Depakote -] 2,000 mg PO HS #30 tablet.ec 02/24/18 Docusate Sodium [Colace -] 300 mg PO HS #60 capsule 02/24/18 Metformin HCl [Glucophage] 500 mg PO BID #60 tablet 02/24/18 Quetiapine Fumarate [Seroquel -] 25 mg PO HS #30 tablet 02/24/18 Quinapril HCl [Accupril -] 20 mg PO BID #30 tablet 02/24/18 Trazodone HCl 100 mg PO HS #30 tablet 02/24/18 propRANOLol HCL [Inderal -] 20 mg PO BID #60 tablet 02/24/18 REVIEW OF SYSTEMS CONSTITUTIONAL: Absent: fever, chills, diaphoresis, generalized weakness, malaise, loss of appetite, weight change HEENT: Absent: rhinorrhea, nasal congestion, throat pain, throat swelling, difficulty swallowing, mouth swelling, ear pain, eye pain, visual changes CARDIOVASCULAR: Absent: chest pain, syncope, palpitations, irregular heart rate, lightheadedness , peripheral edema RESPIRATORY: Absent: cough, shortness of breath, dyspnea with exertion, orthopnea, wheezing, stridor, hemoptysis GASTROINTESTINAL: Absent: abdominal pain, abdominal distension, nausea, vomiting, diarrhea, constipation, melena, hematochezia GENITOURINARY: Absent: dysuria, frequency, urgency, hesitancy, hematuria, flank pain, genital pain MUSCULOSKELETAL: Absent: myalgia, arthralgia, joint swelling, back pain, neck pain SKIN: Absent: rash, itching, pallor HEMATOLOGIC/IMMUNOLOGIC: Absent: easy bleeding, easy bruising, lymphadenopathy, frequent infections ENDOCRINE: Absent: unexplained weight gain, unexplained weight loss, heat intolerance, cold intolerance NEUROLOGIC: unsteady gait, Absent: headache, focal weakness or paresthesias, dizziness, seizure, mental status changes, bladder or bowel incontinence PSYCHIATRIC: Absent: anxiety, depression, suicidal or homicidal ideation, hallucinations. PHYSICAL EXAMINATION Vital Signs - 24 hr 03/04/18 03/04/18 03/04/18 07:55 11:40 14:10 Temperature 98.6 F 98.2 F 98.1 F Pulse Rate 83 Pulse Rate [ 76 77 Left Radial] Respiratory 15 16 18 Rate Blood Pressure 166/92 Blood Pressure 162/82 152/90 [Left Arm] O2 Sat by Pulse 100 96 100 Oximetry (%) GENERAL: (+) Awake, alert, and fully oriented, in no acute distress. Generalized weakness HEAD: No signs of trauma EYES: PERRLA, EOMI, sclera anicteric, conjunctiva clear ENT: Auricles normal inspection, hearing grossly normal, nares patent, oropharynx clear without exudates. Moist mucosa NECK: Normal ROM, supple, no lymphadenopathy, JVD, or masses LUNGS: Breath sounds equal, clear to auscultation bilaterally. No wheezes, and no crackles HEART: Regular rate and rhythm, normal S1 and S2, no murmurs, rubs or gallops ABDOMEN: Soft, nontender, normoactive bowel sounds. No guarding, no rebound. No masses EXTREMITIES: Normal range of motion, no edema. No clubbing or cyanosis. No cords, erythema, or tenderness NEUROLOGICAL: (+) Cranial nerves II through XII grossly intact. Normal speech, only able to ambulate with assistance Laboratory Results - last 24 hr 03/04/18 03/04/18 03/04/18 08:45 08:45 10:20 WBC 9.2 RBC 4.20 Hgb 12.6 Hct 37.7 MCV 89.7 MCH 30.0 MCHC 33.5 RDW 13.3 Plt Count 215 MPV 10.1 Neutrophils % 74.5 D Lymphocytes % 16.1 D Monocytes % 7.7 Eosinophils % 0.9 Basophils % 0.8 Nucleated RBC % 0 Sodium 140 Potassium 4.3 Chloride 106 Carbon Dioxide 28 Anion Gap 6 L BUN 8 D Creatinine 0.7 D Creat Clearance w eGFR > 60 Random Glucose 140 H Calcium 8.7 Total Bilirubin 0.4 AST 7 L D ALT 9 L D Alkaline Phosphatase 70 Creatine Kinase 43 Troponin I < 0.02 Total Protein 6.4 Albumin 3.1 L Urine Color Yellow Urine Appearance Clear Urine pH 6.0 Ur Specific [place] 1.017 Urine Protein Negative Urine Glucose (UA) 2+ H Urine Ketones 1+ H Urine Blood Negative Urine Nitrite Negative Urine Bilirubin Negative Urine Urobilinogen 4.0 e.u/dl Ur Leukocyte Esterase Negative ASSESSMENT/PLAN: 57 yom with pMHx of Parkinson Disease (recently diagnosed), high cholesterol, bipolar disorder, hypertension, IDDM and COPD admitted with gait instability, reported recurrent falls and concern for inability to care at home. Problem List - Problem (1) Falls (2) Unable to ambulate Assessment/Plan: Placed on observation. * PT eval pending. * Fall precautions. * program project manager to discuss homeowner association manager vs. SNF (3) HTN (hypertension) Assessment/Plan: will continue home meds. * Quinapril HCl (Accupril -) 20 mg PO BID (4) HLD (hyperlipidemia) Assessment/Plan: continue statin (5) IDDM (insulin dependent diabetes mellitus) Assessment/Plan: poorly controlled 2/2 non compliance. * ADA diet * BG ACHS * ISS ACHS * Levamir 5 units HS (6) Bipolar 1 disorder Assessment/Plan: continue home meds. * Divalproex Sodium (Depakote -) 2,000 mg PO HS * Quetiapine Fumarate (Seroquel -) 25 mg PO HS * Trazodone HCl (Desyrel -) 100 mg PO HS (7) COPD (chronic obstructive pulmonary disease) Assessment/Plan: no home meds * Supplemental O2 PRN * Albuterol PRN for SOB and wheezing. (8) Parkinson disease Assessment/Plan: unsure of diagnosis. * Carbidopa/Levodopa (Sinemet *Cr* 25/100 -) 1 combo PO TID (9) DVT prophylaxis Assessment/Plan: SCD's bilat. LE Visit type - Emergency Visit Emergency Visit: Yes ED Registration Date: 03/04/18 Care time: The patient presented to the Emergency Department on the above date and was hospitalized for further evaluation of their emergent condition. - New Patient This patient is new to me today: Yes Date on this admission: 03/04/18 - Critical Care Critical Care patient: No Hospitalist Screening - Colonoscopy Questionnaire Colonoscopy Questionnaire: Colonoscopy Questionnaire - Patient: 50 - 75 years old and never had a screening colonoscopy: No History of colon or rectal polyps, or CA: No History of IBD, Crohn's disease or UC: No History of abdominal radiation therapy as a child: No - Relative: 1 with colon or rectal CA, or polyps at age 60 or younger: No Colon or rectal CA diagnosed at age 45 or younger: No Multiple relatives with colon or rectal CA: No - Outcome: Screening Result: Negative Screen
--- NOTE | 2018-03-04 15:19 | PN ---
Teaching Attending Note Name of Resident: Ronni Ron ATTENDING PHYSICIAN STATEMENT I saw and evaluated the patient. I reviewed the resident's note and discussed the case with the resident. I agree with the resident's findings and plan as documented with exceptions below. SUBJECTIVE: 57 yom with PMhx of Parkinson Disease (recently diagnosed), high cholesterol, bipolar disorder, hypertension, IDDM and COPD, recently admitted with fall in 2017, sent home comes back with recurrent falls but no LOC or head trauma, gait instability and not being able to take his meds. Reports ran out of his meds and just refilled the same. 12 point ROS done, neg for new back pain, leg weakness/tingling/numbness, urinary or bowel symptoms, fevers, chills, cough or dyspnea or new concerns. OBJECTIVE: Vital Signs Period Temp Pulse Resp BP Sys/Irizarry Pulse Ox Last 24 Hr 98.1 F-98.6 F 76-83 15-18 152-166/82-92 96-100 Intake & Output 03/01/18 03/02/18 03/03/18 03/04/18 23:59 23:59 23:59 23:59 Weight 235 lb GENERAL: Awake, alert, and fully oriented, in no acute distress. HEAD: Normal with no signs of trauma. EYES: Pupils equal, round and reactive to light, extraocular movements intact, sclera anicteric, conjunctiva clear. No lid lag. EARS, NOSE, THROAT: Ears normal, nares patent, oropharynx clear without exudates. Moist mucous membranes. NECK: Soft, supple, no JVD LUNGS: Breath sounds equal, clear to auscultation bilaterally. No wheezes, and no crackles. No accessory muscle use. HEART: S1S2 regular ABDOMEN: Soft, nontender, not distended, normoactive bowel sounds, no guarding, no rebound, no masses. MUSCULOSKELETAL: no spinal tenderness, SLR neg bilateral LE, Right knee chronic swelling with some limitation of ROM that is chronic UPPER EXTREMITIES: 2+ pulses, warm, well-perfused. No cyanosis. No clubbing. No peripheral edema. LOWER EXTREMITIES: 2+ pulses, warm, well-perfused. No calf tenderness. No peripheral edema. NEUROLOGICAL: AAOx3, facial symmetry, power 5/5, SLR neg bilaterally, no pronator, mild upper extremity tremors, finger nose test neg, no dysdiadokokinesia, gait shuffling but no leaning, able to walk without support PSYCHIATRIC: Cooperative. Good eye contact. Appropriate mood and affect. SKIN: Warm, dry, normal turgor, no rashes or lesions noted, normal capillary refill. Home Medication List Medication Instructions Recorded Confirmed Type Aspirin 81 mg PO DAILY 02/23/18 02/23/18 History Atorvastatin Ca [Lipitor] 20 mg PO HS 02/23/18 02/23/18 History Buprenorphine HCl [Belbuca] 150 mcg PO BID 02/23/18 02/23/18 History Cetirizine HCl [Zyrtec -] 10 mg PO DAILY 02/23/18 02/23/18 History Ergocalciferol [Vitamin D2] 50,000 unit PO Q7D@1000 02/23/18 02/23/18 History Fluticasone Propionate [Flonase 2 spr NS DAILY 02/23/18 02/23/18 History Allergy Relief] Humulin R U-500 Kwikpen 0 unit SUBD ASDIR 02/23/18 02/23/18 History Insulin Glargine,Hum.rec.anlog 5 unit SQ HS 02/23/18 02/23/18 History [Basaglar Kwikpen U-100] Turmeric/Turmeric Root Extract 500 mg PO QID 02/23/18 02/23/18 History [Turmeric 500 mg Capsule] Active Medications Generic Name Dose Route Start Last Admin Trade Name Freq PRN Reason Stop Dose Admin Aspirin 81 mg 03/05/18 10:00 Asa - PO DAILY ROXANA Atorvastatin Calcium 20 mg 03/04/18 22:00 Lipitor - PO HS ROXANA Carbidopa/Levodopa 1 combo 03/04/18 22:00 Sinemet *Cr* 25/100 - PO TID ROXANA Divalproex Sodium 2,000 mg 03/04/18 22:00 Depakote - PO HS ROXANA Docusate Sodium 300 mg 03/04/18 22:00 Colace - PO HS ROXANA Fluticasone Propionate 2 spray 03/05/18 10:00 Flonase - NS DAILY ROXANA Insulin Aspart 1 vial 03/04/18 16:30 Novolog Vial Sliding Scale - SQ ACHS ROXANA Protocol Insulin Detemir 5 units 03/04/18 22:00 Levemir Vial SQ HS ROXANA Propranolol HCl 20 mg 03/04/18 22:00 Inderal - PO BID ROXANA Quetiapine Fumarate 25 mg 03/04/18 22:00 Seroquel - PO HS ROXANA Quinapril HCl 20 mg 03/04/18 22:00 Accupril - PO BID ROXANA Trazodone HCl 100 mg 03/04/18 22:00 Desyrel - PO HS [facility] Laboratory Results - last 24 hr 03/04/18 03/04/18 03/04/18 08:45 08:45 10:20 WBC 9.2 RBC 4.20 Hgb 12.6 Hct 37.7 MCV 89.7 MCH 30.0 MCHC 33.5 RDW 13.3 Plt Count 215 MPV 10.1 Neutrophils % 74.5 D Lymphocytes % 16.1 D Monocytes % 7.7 Eosinophils % 0.9 Basophils % 0.8 Nucleated RBC % 0 Sodium 140 Potassium 4.3 Chloride 106 Carbon Dioxide 28 Anion Gap 6 L BUN 8 D Creatinine 0.7 D Creat Clearance w eGFR > 60 Random Glucose 140 H Calcium 8.7 Total Bilirubin 0.4 AST 7 L D ALT 9 L D Alkaline Phosphatase 70 Creatine Kinase 43 Troponin I < 0.02 Total Protein 6.4 Albumin 3.1 L Urine Color Yellow Urine Appearance Clear Urine pH 6.0 Ur Specific [place] 1.017 Urine Protein Negative Urine Glucose (UA) 2+ H Urine Ketones 1+ H Urine Blood Negative Urine Nitrite Negative Urine Bilirubin Negative Urine Urobilinogen 4.0 e.u/dl Ur Leukocyte Esterase Negative LS xray - scoliosis with degenerative changes, wedging ASSESSMENT AND PLAN: 57 yom with pMHx of Parkinson Disease (recently diagnosed), high cholesterol, bipolar disorder, hypertension, IDDM and COPD admitted with gait instability, reported recurrent falls and concern for inability to care at home. -Gait instability -Recurrent reported falls -Inability to care for at home -recently diagnosed Parkinson's disease -IDDM -COPD -HTN -HLD -Bipolar disorder Plan: Non concerning neuro exam. PT eval. Fall precautions. Case management consult for dispo planning. COntinue home meds Admit to obs. Plan discussed with patient in detail, all questions answered. Total admit time 50 min.
[2018-03-04] MEDS: INSULIN SLIDING SCALE (NOVOLOG) 1 VIAL SQ SCH ×2 (16:36→21:40)
--- NOTE | 2018-03-04 17:32 | EKG ---
Test Reason : Blood Pressure : / mmHG Vent. Rate : 075 BPM Atrial Rate : 075 BPM P-R Int : 156 ms QRS Dur : 110 ms QT Int : 402 ms P-R-T Axes : 035 -31 024 degrees QTc Int : 448 ms NORMAL SINUS RHYTHM LEFT AXIS DEVIATION INCOMPLETE RIGHT BUNDLE BRANCH BLOCK ABNORMAL ECG WHEN COMPARED WITH ECG OF 23-FEB-2018 10:38, NO SIGNIFICANT CHANGE WAS FOUND Confirmed by CHARLA SAHNI MD ([id number]) on 03/04/2018 5:31:57 PM Referred By: Confirmed By:CHARLA SAHNI MD
[2018-03-04] MEDS ORDERED: traZODone HCL 50 MG TABLET (FP) ONE (21:14)
[2018-03-04] MEDS ORDERED: INSULIN (NOVOLOG) ASPART 100 UNITS/ML 10ML VIAL ONE (21:15)
[2018-03-04] MEDS ORDERED: PT OWN MED DRAWER 7, Y5N ONE (21:16)
[2018-03-04] MEDS: QUINAPRIL HCL 20 MG TABLET (FP) PO SCH (21:38)
[2018-03-04] MEDS: INSULIN (LEVEMIR) 100 UNITS/ML UNITS SQ SCH (21:38)
[2018-03-04] MEDS: QUEtiapine FUMARATE 25 MG TABLET (FP) PO SCH (21:39)
[2018-03-04] MEDS: ATORVASTATIN CA 20 MG TABLET (FP) PO SCH (21:39)
[2018-03-04] MEDS: DOCUSATE SODIUM 100 MG CAPSULE (FP) PO SCH (21:39)
[2018-03-04] MEDS: DIVALPROEX SODIUM 500 MG TABLET E.C. PO SCH (21:39)
[2018-03-04] MEDS: traZODone HCL 100 MG TABLET (FP) PO SCH (21:39)
[2018-03-04] MEDS: ACETAMINOPHEN 325 MG TABLET (FP) PO PRN (22:18)
[2018-03-05] MEDS: INSULIN SLIDING SCALE (NOVOLOG) 1 VIAL SQ SCH ×4 (06:21→21:21)
[2018-03-05] MEDS ORDERED: PT OWN MED DRAWER 7, Y5N ONE ×4 (08:56→21:13)
[2018-03-05] MEDS: QUINAPRIL HCL 20 MG TABLET (FP) PO SCH ×2 (09:26→21:21)
[2018-03-05] MEDS: ASPIRIN 81 MG CHEWABLE TABLETS PO SCH (09:26)
[2018-03-05] MEDS: FLUTICASONE PROP 0.05% 16 GM NASAL SPRAY NS SCH (09:29)
[2018-03-05] MEDS ORDERED: INSULIN (NOVOLOG) ASPART 100 UNITS/ML 10ML VIAL ONE ×2 (11:41→21:11)
--- NOTE | 2018-03-05 13:24 | PN ---
Progress Note (short form) - Note Progress Note: Patient seen and examined, overall unchanged, no new falls or concerns. Objective: Vital Signs Period Temp Pulse Resp BP Sys/Irizarry Pulse Ox Last 24 Hr 97.0 F-99 F 67-92 17-20 148-156/69-94 95-100 Intake & Output 03/02/18 03/03/18 03/04/18 03/05/18 23:59 23:59 23:59 23:59 Intake Total 1080 640 Output Total 1050 800 Balance 30 -160 Weight 235 lb General: sitting in no acute distress Chest: no rales or wheezing, positive air entry Abdomen:soft, NT Extremities: no edema Home Medication List Medication Instructions Recorded Confirmed Type Aspirin 81 mg PO DAILY 02/23/18 02/23/18 History Atorvastatin Ca [Lipitor] 20 mg PO HS 02/23/18 02/23/18 History Buprenorphine HCl [Belbuca] 150 mcg PO BID 02/23/18 02/23/18 History Cetirizine HCl [Zyrtec -] 10 mg PO DAILY 02/23/18 02/23/18 History Ergocalciferol [Vitamin D2] 50,000 unit PO Q7D@1000 02/23/18 02/23/18 History Fluticasone Propionate [Flonase 2 spr NS DAILY 02/23/18 02/23/18 History Allergy Relief] Humulin R U-500 Kwikpen 0 unit SUBD ASDIR 02/23/18 02/23/18 History Insulin Glargine,Hum.rec.anlog 5 unit SQ HS 02/23/18 02/23/18 History [Basaglar Kwikpen U-100] Turmeric/Turmeric Root Extract 500 mg PO QID 02/23/18 02/23/18 History [Turmeric 500 mg Capsule] Active Medications Generic Name Dose Route Start Last Admin Trade Name Freq PRN Reason Stop Dose Admin Acetaminophen 650 mg 03/04/18 22:13 03/04/18 22:18 Tylenol - PO 650 mg Q6H PRN Administration FEVER Aspirin 81 mg 03/05/18 10:00 03/05/18 09:26 Asa - PO 81 mg DAILY ROXANA Administration Atorvastatin Calcium 20 mg 03/04/18 22:00 03/04/18 21:39 Lipitor - PO 20 mg HS ROXANA Administration Carbidopa/Levodopa 1 combo 03/04/18 22:00 03/05/18 06:12 Sinemet *Cr* 25/100 - PO 1 combo TID ROXANA Administration Divalproex Sodium 2,000 mg 03/04/18 22:00 03/04/18 21:39 Depakote - PO 2,000 mg HS ROXANA Administration Docusate Sodium 300 mg 03/04/18 22:00 03/04/18 21:39 Colace - PO 300 mg HS ROXANA Administration Fluticasone Propionate 2 spray 03/05/18 10:00 03/05/18 09:29 Flonase - NS 2 spr DAILY ROXANA Administration Insulin Aspart 1 vial 03/04/18 16:30 03/05/18 11:53 Novolog Vial Sliding Scale - SQ 2 units ACHS ROXANA Administration Protocol Insulin Detemir 5 units 03/04/18 22:00 03/04/18 21:38 Levemir Vial SQ 5 units HS ROXANA Administration Propranolol HCl 20 mg 03/04/18 22:00 03/05/18 09:27 Inderal - PO 20 mg BID ROXANA Administration Quetiapine Fumarate 25 mg 03/04/18 22:00 03/04/18 21:39 Seroquel - PO 25 mg HS ROXANA Administration Quinapril HCl 20 mg 03/04/18 22:00 03/05/18 09:26 Accupril - PO 20 mg BID ROXANA Administration Trazodone HCl 100 mg 03/04/18 22:00 03/04/18 21:39 Desyrel - PO 100 mg HS ROXANA Administration Laboratory Results - last 24 hr 03/04/18 03/04/18 03/05/18 16:33 21:36 06:08 POC Glucometer 243 232 114 03/05/18 11:15 POC Glucometer 177 Microbiology 03/04/18 10:08 Urine - Urine Clean Catch Urine Culture - Final NO GROWTH OBTAINED Assessment/Plan: 57 yom with pMHx of Parkinson Disease (recently diagnosed), high cholesterol, bipolar disorder, hypertension, IDDM and COPD admitted with gait instability, reported recurrent falls and concern for inability to care at home. -Gait instability -Recurrent reported falls -Inability to care for at home -recently diagnosed Parkinson's disease -IDDM -COPD -HTN -HLD -Bipolar disorder Plan: PT arben noted, follow up final recs. Discussed with CM, follow up for dispo plan. Dispo when safe arrangements made. Plan discussed with patient in detail, all questions answered. Visit type - Emergency Visit Emergency Visit: No - New Patient This patient is new to me today: No - Critical Care Critical Care patient: No
[2018-03-05] MEDS ORDERED: traZODone HCL 50 MG TABLET (FP) ONE (21:10)
[2018-03-05] MEDS: DIVALPROEX SODIUM 500 MG TABLET E.C. PO SCH (21:20)
[2018-03-05] MEDS: DOCUSATE SODIUM 100 MG CAPSULE (FP) PO SCH (21:21)
[2018-03-05] MEDS: traZODone HCL 100 MG TABLET (FP) PO SCH (21:21)
[2018-03-05] MEDS: ATORVASTATIN CA 20 MG TABLET (FP) PO SCH (21:21)
[2018-03-05] MEDS: QUEtiapine FUMARATE 25 MG TABLET (FP) PO SCH (21:21)
[2018-03-05] MEDS: INSULIN (LEVEMIR) 100 UNITS/ML UNITS SQ SCH (21:21)
[2018-03-05] MEDS: traZODone HCL 50 MG TABLET (FP) PO SCH (23:44)
[2018-03-06] MEDS: INSULIN SLIDING SCALE (NOVOLOG) 1 VIAL SQ SCH ×4 (06:09→21:52)
[2018-03-06] MEDS: QUINAPRIL HCL 20 MG TABLET (FP) PO SCH ×2 (09:11→21:51)
[2018-03-06] MEDS: ASPIRIN 81 MG CHEWABLE TABLETS PO SCH (09:11)
[2018-03-06] MEDS: ACETAMINOPHEN 325 MG TABLET (FP) PO PRN ×2 (09:11→21:59)
[2018-03-06] MEDS ORDERED: INSULIN (NOVOLOG) ASPART 100 UNITS/ML 10ML VIAL ONE (11:11)
[2018-03-06] MEDS: FLUTICASONE PROP 0.05% 16 GM NASAL SPRAY NS SCH (12:02)
--- NOTE | 2018-03-06 12:06 | PN ---
Progress Note (short form) - Note Progress Note: Patient seen and examined, overall unchanged, no new falls or concerns. Objective: Vital Signs Period Temp Pulse Resp BP Sys/Irizarry Pulse Ox Last 24 Hr 97.0 F-99 F 67-92 17-20 148-156/69-94 95-100 Intake & Output 03/02/18 03/03/18 03/04/18 03/05/18 23:59 23:59 23:59 23:59 Intake Total 1080 640 Output Total 1050 800 Balance 30 -160 Weight 235 lb General: sitting in no acute distress Chest: no rales or wheezing, positive air entry Abdomen:soft, NT Extremities: no edema Home Medication List Medication Instructions Recorded Confirmed Type Aspirin 81 mg PO DAILY 02/23/18 02/23/18 History Atorvastatin Ca [Lipitor] 20 mg PO HS 02/23/18 02/23/18 History Buprenorphine HCl [Belbuca] 150 mcg PO BID 02/23/18 02/23/18 History Cetirizine HCl [Zyrtec -] 10 mg PO DAILY 02/23/18 02/23/18 History Ergocalciferol [Vitamin D2] 50,000 unit PO Q7D@1000 02/23/18 02/23/18 History Fluticasone Propionate [Flonase 2 spr NS DAILY 02/23/18 02/23/18 History Allergy Relief] Humulin R U-500 Kwikpen 0 unit SUBD ASDIR 02/23/18 02/23/18 History Insulin Glargine,Hum.rec.anlog 5 unit SQ HS 02/23/18 02/23/18 History [Basaglar Kwikpen U-100] Turmeric/Turmeric Root Extract 500 mg PO QID 02/23/18 02/23/18 History [Turmeric 500 mg Capsule] Active Medications Generic Name Dose Route Start Last Admin Trade Name Freq PRN Reason Stop Dose Admin Acetaminophen 650 mg 03/04/18 22:13 03/04/18 22:18 Tylenol - PO 650 mg Q6H PRN Administration FEVER Aspirin 81 mg 03/05/18 10:00 03/05/18 09:26 Asa - PO 81 mg DAILY ROXANA Administration Atorvastatin Calcium 20 mg 03/04/18 22:00 03/04/18 21:39 Lipitor - PO 20 mg HS ROXANA Administration Carbidopa/Levodopa 1 combo 03/04/18 22:00 03/05/18 06:12 Sinemet *Cr* 25/100 - PO 1 combo TID ROXANA Administration Divalproex Sodium 2,000 mg 03/04/18 22:00 03/04/18 21:39 Depakote - PO 2,000 mg HS ROXANA Administration Docusate Sodium 300 mg 03/04/18 22:00 03/04/18 21:39 Colace - PO 300 mg HS ROXANA Administration Fluticasone Propionate 2 spray 03/05/18 10:00 03/05/18 09:29 Flonase - NS 2 spr DAILY ROXANA Administration Insulin Aspart 1 vial 03/04/18 16:30 03/05/18 11:53 Novolog Vial Sliding Scale - SQ 2 units ACHS ROXANA Administration Protocol Insulin Detemir 5 units 03/04/18 22:00 03/04/18 21:38 Levemir Vial SQ 5 units HS ROXANA Administration Propranolol HCl 20 mg 03/04/18 22:00 03/05/18 09:27 Inderal - PO 20 mg BID ROXANA Administration Quetiapine Fumarate 25 mg 03/04/18 22:00 03/04/18 21:39 Seroquel - PO 25 mg HS ROXANA Administration Quinapril HCl 20 mg 03/04/18 22:00 03/05/18 09:26 Accupril - PO 20 mg BID ROXANA Administration Trazodone HCl 100 mg 03/04/18 22:00 03/04/18 21:39 Desyrel - PO 100 mg HS ROXANA Administration Laboratory Results - last 24 hr Laboratory Results - last 24 hr 03/05/18 03/05/18 03/06/18 16:56 21:19 06:08 POC Glucometer 196 219 115 03/06/18 11:10 POC Glucometer 257 Microbiology 03/04/18 10:08 Urine - Urine Clean Catch Urine Culture - Final NO GROWTH OBTAINED Assessment/Plan: 57 yom with pMHx of Parkinson Disease (recently diagnosed), high cholesterol, bipolar disorder, hypertension, IDDM and COPD admitted with gait instability, reported recurrent falls and concern for inability to care at home. -Gait instability -Recurrent reported falls -Inability to care for at home -recently diagnosed Parkinson's disease -IDDM -COPD -HTN -HLD -Bipolar disorder Plan: PT arben noted, follow up final recs. Discussed with CM, follow up for dispo plan. Dispo when safe arrangements made. Plan discussed with patient in detail, all questions answered. Discussed with nursing. Visit type - Emergency Visit Emergency Visit: No - New Patient This patient is new to me today: No - Critical Care Critical Care patient: No - Discharge Referral Referred to [facility] Med P.C.: No
[2018-03-06] MEDS ORDERED: PT OWN MED DRAWER 7, Y5N ONE (21:40)
[2018-03-06] MEDS: DIVALPROEX SODIUM 500 MG TABLET E.C. PO SCH (21:51)
[2018-03-06] MEDS: traZODone HCL 50 MG TABLET (FP) PO SCH (21:51)
[2018-03-06] MEDS: DOCUSATE SODIUM 100 MG CAPSULE (FP) PO SCH (21:51)
[2018-03-06] MEDS: ATORVASTATIN CA 20 MG TABLET (FP) PO SCH (21:51)
[2018-03-06] MEDS: QUEtiapine FUMARATE 25 MG TABLET (FP) PO SCH (21:52)
[2018-03-06] MEDS: INSULIN (LEVEMIR) 100 UNITS/ML UNITS SQ SCH (21:52)
[2018-03-07] MEDS: INSULIN SLIDING SCALE (NOVOLOG) 1 VIAL SQ SCH ×3 (06:00→16:58)
[2018-03-07] MEDS ORDERED: PT OWN MED DRAWER 7, Y5N ONE (09:12)
[2018-03-07] MEDS: ASPIRIN 81 MG CHEWABLE TABLETS PO SCH (09:28)
[2018-03-07] MEDS: QUINAPRIL HCL 20 MG TABLET (FP) PO SCH (09:28)
[2018-03-07] MEDS: FLUTICASONE PROP 0.05% 16 GM NASAL SPRAY NS SCH (09:29)
[2018-03-07] MEDS ORDERED: INSULIN (NOVOLOG) ASPART 100 UNITS/ML 10ML VIAL ONE ×2 (11:48→16:53)
--- NOTE | 2018-03-07 12:11 | PN ---
Teaching Attending Note Name of Resident: Clarence Acuña ATTENDING PHYSICIAN STATEMENT I saw and evaluated the patient. I reviewed the resident's note and discussed the case with the resident. I agree with the resident's findings and plan as documented. SUBJECTIVE:states he has not fallen since in the hospital. walking well with RW. denies Cp, SOB, fever, chills, N/V/C/D OBJECTIVE: Last Vital Signs Temp Pulse Resp BP Pulse Ox 97.7 F 61 20 138/79 97 03/07/18 06:06 03/07/18 06:06 03/07/18 06:06 03/07/18 06:06 03/07/18 06:00 General NAD CV S1 S2 + lungs CTA B/L no wheezing/rales/rhonchi did not want to walk at this time as just finished with PT ASSESSMENT AND PLAN: 57 yo M with pMHx of Parkinson Disease (recently diagnosed), high cholesterol, bipolar disorder, hypertension, IDDM and COPD admitted with gait instability, reported recurrent falls and concern for inability to care at home. 1. Gait instability with Recurrent reported falls- imaging studies here negative. had extensive workup done with neurologist including MRI (showing prolapsed disc). has had this problem for >9months. ambulating without difficulty with RW. would recommend pt to return to neurologist for further testing. was just started on sinemet which may require further adjustment to medication. requested name of another neurologist so he can get a 2nd opinion. may need EMG/NSV 2. recently diagnosed Parkinson's disease- on sinemet 3. IDDM- on reduced dose of levemir and requiring minimal coverage. would d/c on 5 units and instruct to document sugar and coverage and bring to PMD this week to f/u and determine if insulin needs to be further adjusted 4. COPD 5. HTN- controlled. cont current management 6. dyslipidemia- statin 7. Bipolar disorder- cont home management 8. refusing [facility] placement as even an option. d/c home with VNS. expressed importance of follow up
[2018-03-07 14:03] VITALS: BP 147/82; PULSE 75; TEMP 98.7
--- NOTE | 2018-03-07 14:35 | DS ---
Physical Exam: SUBJECTIVE: Patient seen and examined at bedside. No new complaints. Feels well at this time. OBJECTIVE: Vital Signs Period Temp Pulse Resp BP Sys/Irizarry Pulse Ox Last 24 Hr 97.7 F-98.7 F 61-75 18-20 138-150/66-90 96-97 PHYSICAL EXAM GENERAL: The patient is awake, alert, and fully oriented, in no acute distress. HEAD: Normal with no signs of trauma. EYES: PERRL, extraocular movements intact, sclera anicteric, conjunctiva clear. ENT: oropharynx clear without exudates, moist mucous membranes. NECK: Trachea midline, full range of motion, supple. LUNGS: Breath sounds equal, clear to auscultation bilaterally, no wheezes, no crackles, no accessory muscle use. HEART: Regular rate and rhythm, S1, S2 without murmur, rub or gallop. ABDOMEN: Soft, nontender, nondistended, normoactive bowel sounds, no guarding, no rebound, no hepatosplenomegaly, no masses. EXTREMITIES: 2+ pulses, warm, well-perfused, no edema. NEUROLOGICAL: Cranial nerves II through XII intact. Normal speech. Somewhat unstable gait. Strength 5/5 throughout. Sensation intact throughout. Unable to elicit reflexes as pt would not relax limbs. ? lead pipe rigidity as pt did not relax completely PSYCH: Normal mood, normal affect. SKIN: Warm, dry, normal turgor, no rashes or lesions noted. LABS Laboratory Results - last 24 hr 03/06/18 03/06/18 03/07/18 16:38 21:47 05:48 POC Glucometer 112 196 121 03/07/18 11:44 POC Glucometer 190 HOSPITAL COURSE: Date of Admission:03/04/18 Date of Discharge: 03/07/18 57 yo m with pMHx of Parkinson Disease (recently diagnosed), high cholesterol, bipolar disorder, hypertension, IDDM and COPD admitted with gait instability, reported recurrent falls and concern for inability to care at home. Labs unremarkable. CXR unremarkable. Lumbar spine XR notable for scoliosis and degenerative disc disease with wedging. EKG remarkable for Poor R wave progression Recent echo (02/24/18) significant for concentric LVH Pt was placed on fall precautions. Pt was seen by PT in hospital. He was able to ambulate >100' with rollator. Pt has had this issue for a long time and has had extensive workup with out pt neurologist including MRI. It was felt that pt would do best to return to out pt neurologist who knows him well to continue workup and treatment for leg weakness and instability. Pt was recently started on Sinemet for Dx of PD, which may need to be adjusted. Pt may need EMG/NSV. Pt did well on Levemir 5 in hospital. Was d/c'ed on the same. Pt's COPD was stable and managed with home meds. Pt's HTN was well controlled with home meds. Pt's HLD was treated with home meds. Pt's Bipolar disorder was treated with home meds. Case management arranged for VNS as pt was refusing MATTHEW. Pt in no distress and hemodynamically stable for discharge. Problem List - Problem (1) Falls (2) Unable to ambulate Assessment/Plan: Placed on observation. * PT eval pending. * Fall precautions. 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 SNF (3) HTN (hypertension) Assessment/Plan: will continue home meds. * Quinapril HCl (Accupril -) 20 mg PO BID (4) HLD (hyperlipidemia) Assessment/Plan: continue statin (5) IDDM (insulin dependent diabetes mellitus) Assessment/Plan: poorly controlled 2/2 non compliance. * ADA diet * BG ACHS * ISS ACHS * Levamir 5 units HS (6) Bipolar 1 disorder Assessment/Plan: continue home meds. * Divalproex Sodium (Depakote -) 2,000 mg PO HS * Quetiapine Fumarate (Seroquel -) 25 mg PO HS * Trazodone HCl (Desyrel -) 100 mg PO HS (7) COPD (chronic obstructive pulmonary disease) Assessment/Plan: no home meds * Supplemental O2 PRN * Albuterol PRN for SOB and wheezing. (8) Parkinson disease Assessment/Plan: unsure of diagnosis. * Carbidopa/Levodopa (Sinemet *Cr* 25/100 -) 1 combo PO TID (9) DVT prophylaxis Assessment/Plan: SCD's bilat. LE Minutes to complete discharge: 30 Discharge Summary Reason For Visit: ARTHRALGIA, UNABLE TO WALK, FALL Current Active Problems Bipolar 1 disorder (Acute) COPD (chronic obstructive pulmonary disease) (Acute) DVT prophylaxis (Acute) Falls (Acute) HLD (hyperlipidemia) (Acute) HTN (hypertension) (Acute) IDDM (insulin dependent diabetes mellitus) (Acute) Parkinson disease (Acute) Unable to ambulate (Acute) Condition: Good - Instructions Diet, Activity, Other Instructions: You need to make sure you follow up with your primary care doctor within 1 week. You should follow up with your neurologist. You need an out patient workup for the cause of you leg weakness. If you want a second opinion the name of another neurologist has been provided. Be careful when getting up and sitting down. Be careful when walking around the house. Try and remove obstacles and keep walkways clear. Make sure you use rolling walker as needed. Visiting nurse services have been arranged and should contact you tomorrow Make sure you take all your prescription medications as directed. You were on 5 units of Insulin in the hospital. Continue with this dose and follow up with your primary care doctor. Referrals: Karen Reyes MD [Primary Care Provider] - 1 Week Disposition: HOME - Home Medications Comprehensive Discharge Medication List: Ambulatory Orders Aspirin 81 mg PO DAILY 02/23/18 Atorvastatin Ca [Lipitor] 20 mg PO HS 02/23/18 Insulin Glargine,Hum.rec.anlog [Basaglar Kwikpen U-100] 5 unit SQ HS 02/23/18 Carbidopa/Levodopa *Cr* 25/100 [Sinemet *Cr* 25/100 -] 1 combo PO TID #120 tablet.er 02/24/18 Divalproex [Depakote -] 2,000 mg PO HS #30 tablet.ec 02/24/18 Metformin HCl [Glucophage] 500 mg PO BID #60 tablet 02/24/18 Quetiapine Fumarate [Seroquel -] 25 mg PO HS #30 tablet 02/24/18 Trazodone HCl 100 mg PO HS #30 tablet 02/24/18 propRANOLol HCL [Inderal -] 20 mg PO BID #60 tablet 02/24/18 Bupropion HCl [Bupropion HCl Sr] 150 mg PO BID 03/07/18 Quinapril HCl [Accupril -] 20 mg PO BID #60 tablet 03/07/18 This patient is new to me today: Yes Date on this admission: 03/07/18 Emergency Visit: No Critical Care patient: No - Discharge Referral Referred to [facility] Med P.C.: No
[2018-03-11] MEDS ORDERED: ERGOCALCIFEROL (VITAMIN D2) 50,000 UNIT CAPSULE (FP) PO SCH (10:00)
== END 2018-03-07 17:55 | disposition home or self-care (01) ==
LOC: JER 07:40 → JERBED 11:49 → J6S 14:52
PROVIDERS: ADMIT Hospitalist; ATTEND Internal Medicine
PROC: 3E013VG Introduction of Insulin into Subcutaneous Tissue, Percutaneous Approach (ICD-10-PCS; principal; 2018-03-04)
DX: R26.2 Difficulty in walking, not elsewhere classified (principal); R29.6 Repeated falls; I10 Essential (primary) hypertension; E78.5 Hyperlipidemia, unspecified; E11.9 Type 2 diabetes mellitus without complications; G20 Parkinson's disease; F31.9 Bipolar disorder, unspecified; J44.9 Chronic obstructive pulmonary disease, unspecified; M54.30 Sciatica, unspecified side; Z74.2 Need for assistance at home and no other household member able to render care; Z91.14 Patient's other noncompliance with medication regimen; Z79.4 Long term (current) use of insulin; Z79.82 Long term (current) use of aspirin; Z79.84 Long term (current) use of oral hypoglycemic drugs; Z91.81 History of falling
CPT/HCPCS: 36415; 71045-TC-FY; 72100-TC-FY; 80053; 81003; 82550; 82962; 84484; 85025; 87086; 93005; 93010; 96372; 97116-GP; 97161-GP; 99284-25; G0378

== ENCOUNTER 2018-03-14 12:28 | Observation (INO) | payer OTHER ==
--- NOTE | 2018-03-14 14:50 | PDOC ---
History of Present Illness - General Chief Complaint: Weakness Stated Complaint: BACK PAIN History Source: Patient Exam Limitations: No Limitations - History of Present Illness Initial Comments: 03/14/18 14:45 58-year-old male history of Parkinson's hypertension hyperlipidemia and COPD who was recently admitted February 24 for frequent falls and unstable gait is here today complaining of inability to walk due to severe weakness. Patient states he was sitting on his couch was unable to lift himself up off the couch he lives at home with his 90-year-old mother. States he had to call the ambulance because he was so weak he was unable to walk denies any recent fevers or chills no change in his speech no nausea no vomiting or chest pain no shortness of breath states overall his arms are weak the right side of his leg seems slightly weaker than the left lower extremity states he has a known history of spinal degenerative disc disease is told at some point of the weakness may be due to lower back disease denies any new injuries or worsening back pain no bowel or bladder incontinence is followed by an outpatient neurologist at [facility] name Dr. LLOYD Past History - Past Medical History Allergies/Adverse Reactions: Allergies Allergy/AdvReac Type Severity Reaction Status Date / Time No Known Allergies Allergy Verified 03/04/18 07:52 Home Medications: Ambulatory Orders Aspirin 81 mg PO DAILY 02/23/18 Atorvastatin Ca [Lipitor] 20 mg PO HS 02/23/18 Insulin Glargine,Hum.rec.anlog [Basaglar Kwikpen U-100] 5 unit SQ HS 02/23/18 Carbidopa/Levodopa *Cr* 25/100 [Sinemet *Cr* 25/100 -] 1 combo PO TID #120 tablet.er 02/24/18 Divalproex [Depakote -] 2,000 mg PO HS #30 tablet.ec 02/24/18 Metformin HCl [Glucophage] 500 mg PO BID #60 tablet 02/24/18 Quetiapine Fumarate [Seroquel -] 25 mg PO HS #30 tablet 02/24/18 Trazodone HCl 100 mg PO HS #30 tablet 02/24/18 propRANOLol HCL [Inderal -] 20 mg PO BID #60 tablet 02/24/18 Bupropion HCl [Bupropion HCl Sr] 150 mg PO BID 03/07/18 Quinapril HCl [Accupril -] 20 mg PO BID #60 tablet 03/07/18 Anemia: No Asthma: No Cancer: No CVA: No COPD: No CHF: No Dementia: No Diabetes: Yes GI Disorders: No Disorders: No HTN: Yes Hypercholesterolemia: No Liver Disease: No Psychiatric Problems: Yes Seizures: No Thyroid Disease: No - Surgical History Abdominal Surgery: No Appendectomy: No Cardiac Surgery: No Cholecystectomy: No Lung Surgery: No Neurologic Surgery: No Orthopedic Surgery: Yes (rt leg knee placement) - Immunization History Immunization Up to Date: Yes - Suicide/Smoking/Psychosocial Hx Smoking History: Never smoked Have you smoked in the past 12 months: No Hx Alcohol Use: No (ETOH ) Drug/Substance Use Hx: No (crack ) Substance Use Type: Cocaine, Marijuana Hx Substance Use Treatment: No Review of Systems - Review of Systems Constitutional: No: Chills Respiratory: No: Cough, Orthopnea Cardiac (ROS): No: Chest Pain, Edema Musculoskeletal: Yes: Muscle Weakness. No: Back Pain Integumentary: No: Bruising, Change in Color All Other Systems: Reviewed and Negative *Physical Exam - Vital Signs Last Vital Signs Temp Pulse Resp BP Pulse Ox 98 F 70 18 143/90 98 03/14/18 12:42 03/14/18 12:42 03/14/18 12:42 03/14/18 12:42 03/14/18 12:42 - Physical Exam General Appearance: Yes: Nourished, Appropriately Dressed HEENT: positive: Normal ENT Inspection Neck: positive: Trachea midline Respiratory/Chest: positive: Lungs Clear, Normal Breath Sounds Cardiovascular: positive: Regular Rhythm, Regular Rate, S1, S2 Gastrointestinal/Abdominal: positive: Normal Bowel Sounds, Flat, Soft. negative : Tender Musculoskeletal: positive: Normal Inspection Extremity: positive: Normal Capillary Refill, Normal Inspection, Normal Range of Motion. negative: Swelling, Calf Tenderness Integumentary: positive: Normal Color, Dry, Warm Neurologic: positive: formulation scientist II-XII NML intact, Fully Oriented, Alert, Normal Mood/ Affect, Other (RIGHT LEG WEAKNESS 4+/5, ALL ELSE 5/5. SENSATION INTACT). negative: Sensory Deficit Heart Score/ECG Review #1 General ECG Interpretation: Sinus Rhythm, Normal Rate (74), Normal Intervals, No acute ischemic changes ED Treatment Course - LABORATORY CBC & Chemistry Diagram: 03/14/18 14:45 03/14/18 14:45 - RADIOLOGY Radiology Studies Ordered: Category Date Time Status HEAD CT WITHOUT CONTRAST [CT] Stat CT Scan 03/14/18 14:43 Ordered Medical Decision Making - Medical Decision Making 03/14/18 14:51 DIFFERENTIAL: NERVE ROOT COMPROMISE FROM DISC DISEASE SPINE, CVA, INFECTION EXACERBATION OLD SYMTPMS OR WORSENING PARKINSONS. PLAN UA CXR EKG LABS CT HEAD. WILL D/W NUEROLOGY . POSSIBLE ADMISSION FOR WORSENING WEAKNESS. *DC/Admit/Observation/Transfer Diagnosis at time of Disposition: Weakness - Discharge Dispostion Decision to Admit order: Yes - Referrals - Patient Instructions - Post Discharge Activity
[2018-03-14 15:16] LABS: BASO % 0.7 % (0-2.0); EOS % 1.9 % (0-4.5); LYMPH % 22.3 % (8-40); MCH 29.9 pg (25.7-33.7); MCHC 33.3 g/dl (32.0-35.9); MEAN CELL VOLUME 89.7 fl (80-96); MEAN PLT VOLUME 10.1 fl (7.5-11.1); MONO % 9.8 % (3.8-10.2); NEUT % 65.3 % (42.8-82.8); PLATELET COUNT 206 K/MM3 (134-434); RBC 4.34 M/mm3 (4.00-5.60); RDW 13.7 % (11.9-15.9); WHITE BLOOD COUNT 8.9 K/mm3 (4.0-10.0)
[2018-03-14 15:39] LABS: CHLORIDE 104 mmol/L (98-107); POTASSIUM 4.2 mmol/L (3.5-5.1); SODIUM 139 mmol/L (136-145)
[2018-03-14 15:49] LABS: ALBUMIN 3.3 g/dl (3.4-5.0); ALK PHOS 66 U/L (45-117); ANION GAP 8 (8-16); BILIRUBIN,TOTAL 0.3 mg/dL (0.2-1.0); BLOOD UREA NITROGEN 11 mg/dL (7-18); CALCIUM 8.6 mg/dL (8.5-10.1); CO2 27 mmol/L (21-32); CREATININE 0.9 mg/dL (0.7-1.3); GLUCOSE,RANDOM 127 mg/dL (74-106); SGOT/AST 7 U/L (15-37); SGPT/ALT 8 U/L (12-78); TOT PROT 6.3 g/dl (6.4-8.2)
--- NOTE | 2018-03-14 18:39 | HP ---
CHIEF COMPLAINT: leg weakness PCP: Dr. Ortega ([facility]) Neuro: Dr. Nelson (pt expressed he was interested in finding a new neurologist) HISTORY OF PRESENT ILLNESS: Pt is a 58-year-old male history of Parkinson's (not definitively diagnosed; was told he might have by a neurologist), hypertension, hyperlipidemia, and COPD who was recently admitted February 24 for frequent falls and unstable gait presents to ED with complaint of leg weakness. Per pt, was sitting at home and was unable to get up from a chair, so he called 911. Pt denies any numbness/tingling, dizziness, seizure, cp, sob, instability, incontinence, constipation. He states he simply did not have the strength to get up from his chair. ER course was notable for: (1) labs unremarkable (2) neuro consult placed (3) Recent Travel: denies PAST MEDICAL HISTORY: as above PAST SURGICAL HISTORY: R total knee Social History: Smoking: denies Alcohol: former Drugs: former cocaine, marijuana Family History: denies Allergies No Known Allergies Allergy (Verified 03/04/18 07:52) HOME MEDICATIONS: Home Medications Medication Instructions Recorded Aspirin 81 mg PO DAILY 02/23/18 Atorvastatin Ca [Lipitor] 20 mg PO HS 02/23/18 Insulin Glargine,Hum.rec.anlog 5 unit SQ HS 02/23/18 [Basaglar Kwikpen U-100] Carbidopa/Levodopa *Cr* 25/100 1 combo PO TID #120 tablet.er 02/24/18 [Sinemet *Cr* 25/100 -] Divalproex [Depakote -] 2,000 mg PO HS #30 tablet.ec 02/24/18 Metformin HCl [Glucophage] 500 mg PO BID #60 tablet 02/24/18 Quetiapine Fumarate [Seroquel -] 25 mg PO HS #30 tablet 02/24/18 Trazodone HCl 100 mg PO HS #30 tablet 02/24/18 propRANOLol HCL [Inderal -] 20 mg PO BID #60 tablet 02/24/18 Bupropion HCl [Bupropion HCl Sr] 150 mg PO BID 03/07/18 Quinapril HCl [Accupril -] 20 mg PO BID #60 tablet 03/07/18 REVIEW OF SYSTEMS CONSTITUTIONAL: generalized weakness, weakness of legs Absent: fever, chills, diaphoresis, , malaise, loss of appetite, weight change HEENT: Absent: rhinorrhea, nasal congestion, throat pain, throat swelling, difficulty swallowing, mouth swelling, ear pain, eye pain, visual changes CARDIOVASCULAR: Absent: chest pain, syncope, palpitations, irregular heart rate, lightheadedness , peripheral edema RESPIRATORY: Absent: cough, shortness of breath, dyspnea with exertion, orthopnea, wheezing, stridor, hemoptysis GASTROINTESTINAL: Absent: abdominal pain, abdominal distension, nausea, vomiting, diarrhea, constipation, melena, hematochezia GENITOURINARY: Absent: dysuria, frequency, urgency, hesitancy, hematuria, flank pain, genital pain MUSCULOSKELETAL: low back pain, Absent: myalgia, arthralgia, joint swelling, neck pain SKIN: Absent: rash, itching, pallor HEMATOLOGIC/IMMUNOLOGIC: Absent: easy bleeding, easy bruising, lymphadenopathy, frequent infections ENDOCRINE: Absent: unexplained weight gain, unexplained weight loss, heat intolerance, cold intolerance NEUROLOGIC: Absent: headache, focal weakness or paresthesias, dizziness, unsteady gait, seizure, mental status changes, bladder or bowel incontinence PSYCHIATRIC: Absent: anxiety, depression, suicidal or homicidal ideation, hallucinations. PHYSICAL EXAMINATION Vital Signs - 24 hr 03/14/18 12:42 Temperature 98 F Pulse Rate 70 Respiratory 18 Rate Blood Pressure 143/90 O2 Sat by Pulse 98 Oximetry (%) Gen: found standing in room in NAD HEENT: NCAT, PERRLA, EOMI Neck: supple, no jvd Cardiac: RRR, normal s1s2, no m/r/g Pulm: cta b/l Abd: soft nontender nondistended Ext: 2+ pulses, no edema Neuro: aao x 3, strength 5/5 throughout, sensation intact throughout Laboratory Results - last 24 hr 03/14/18 03/14/18 14:45 14:45 WBC 8.9 RBC 4.34 Hgb 13.0 Hct 39.0 MCV 89.7 MCH 29.9 MCHC 33.3 RDW 13.7 Plt Count 206 MPV 10.1 Absolute Neuts (auto) 5.8 Neutrophils % 65.3 Lymphocytes % 22.3 D Monocytes % 9.8 Eosinophils % 1.9 D Basophils % 0.7 Nucleated RBC % 0 Sodium 139 Potassium 4.2 Chloride 104 Carbon Dioxide 27 Anion Gap 8 BUN 11 D Creatinine 0.9 D Creat Clearance w eGFR > 60 Random Glucose 127 H Calcium 8.6 Total Bilirubin 0.3 D AST 7 L ALT 8 L Alkaline Phosphatase 66 Creatine Kinase 41 Troponin I < 0.02 Total Protein 6.3 L Albumin 3.3 L ASSESSMENT/PLAN: Pt is a 58 y/o M with PMH Parkinson's (not definitively diagnosed; was told he might have by a neurologist), hypertension, hyperlipidemia, Bipolar, and COPD with recent admission for similar complaint who has been worked up extensively by outside neurologist who presented to ED with complaint of weakness. Pt is being placed on Obs for evaluation. #Weakness -On previous visit, pt complained of inability to walk, however, he was able to walk 100' with PT -This visit, he states he was unable to rise from chair -no weakness on exam -Lumbar spinal MRI -Neuro consult #HTN -propranalol -ASA #HLD -lipitor #COPD -stable #DM -metformin -ISS #Bipolar -quetiapine -quinipril -trazodone -Buproprion #?seizure history -Depakote #? PD -Sinemet #FEN #PPx -Hep SubQ #Dispo -Obs Clarence Acuña MD PGY-1 IM Visit type - Emergency Visit Emergency Visit: Yes Care time: The patient presented to the Emergency Department on the above date and was hospitalized for further evaluation of their emergent condition. - New Patient This patient is new to me today: No - Critical Care Critical Care patient: No Hospitalist Screening - Colonoscopy Questionnaire Colonoscopy Questionnaire: Colonoscopy Questionnaire - Patient: 50 - 75 years old and never had a screening colonoscopy: Unknown History of colon or rectal polyps, or CA: Unknown History of IBD, Crohn's disease or UC: Unknown History of abdominal radiation therapy as a child: Unknown - Relative: 1 with colon or rectal CA, or polyps at age 60 or younger: Unknown Colon or rectal CA diagnosed at age 45 or younger: Unknown Multiple relatives with colon or rectal CA: Unknown - Outcome: Screening Result: Negative Screen
--- NOTE | 2018-03-14 18:51 | PN ---
Teaching Attending Note Name of Resident: Clarence Acuña ATTENDING PHYSICIAN STATEMENT I saw and evaluated the patient. I reviewed the resident's note and discussed the case with the resident. I agree with the resident's findings and plan as documented with exceptions below. SUBJECTIVE: 58 yom with PMhx of ?Parkinson Disease (recently diagnosed), high cholesterol, bipolar disorder, hypertension, IDDM and COPD, recently admitted with gait instability and inability to get up when was able to walk 100 feet with PT, comes back with similar compliant. was not able to get up from couch, called EMS and was brought to ED. Has chronic back pain radiating down both thighs with intermittent LE tingling at night with no recent change. Denies any new weakness, numbness, urinary or bowel symptoms, falls, trauma, fevers, chills or new concerns. Currently at baseline but lives with his 99 yo mother and 65 yo brother and is concerned about his care at home. OBJECTIVE: Vital Signs Period Temp Pulse Resp BP Sys/Irizarry Pulse Ox Last 24 Hr 98 F 70 18 143/90 98 Intake & Output 03/11/18 03/12/18 03/13/18 03/14/18 23:59 23:59 23:59 23:59 Weight 235 lb GENERAL: Awake, alert, and fully oriented, in no acute distress. HEAD: Normal with no signs of trauma. EYES: Pupils equal, round and reactive to light, extraocular movements intact, sclera anicteric, conjunctiva clear. No lid lag. EARS, NOSE, THROAT: Ears normal, nares patent, oropharynx clear without exudates. Moist mucous membranes. NECK: Normal range of motion, soft, supple, no JVD LUNGS: Breath sounds equal, clear to auscultation bilaterally. No wheezes, and no crackles. No accessory muscle use. HEART: S1S2 regular ABDOMEN: Soft, nontender, not distended, normoactive bowel sounds, no guarding, no rebound, no masses. MUSCULOSKELETAL: Normal range of motion at all joints. No bony deformities or tenderness. No CVA tenderness. SLR 30 degrees RLE and 50 degrees LLE UPPER EXTREMITIES: 2+ pulses, warm, well-perfused. No cyanosis. No clubbing. No peripheral edema. LOWER EXTREMITIES: 2+ pulses, warm, well-perfused. No calf tenderness. No peripheral edema. NEUROLOGICAL: AAOx3, power 5/5 , sensation intact to light tough, no pronator drift, EOMI, facial symmetry, toes down going, able to stand up PSYCHIATRIC: Cooperative. Good eye contact. Appropriate mood and affect. SKIN: Warm, dry, normal turgor, no rashes or lesions noted, normal capillary refill. Home Medications Medication Instructions Recorded Aspirin 81 mg PO DAILY 02/23/18 Atorvastatin Ca [Lipitor] 20 mg PO HS 02/23/18 Insulin Glargine,Hum.rec.anlog 5 unit SQ HS 02/23/18 [Basaglar Kwikpen U-100] Carbidopa/Levodopa *Cr* 25/100 1 combo PO TID #120 tablet.er 02/24/18 [Sinemet *Cr* 25/100 -] Divalproex [Depakote -] 2,000 mg PO HS #30 tablet.ec 02/24/18 Metformin HCl [Glucophage] 500 mg PO BID #60 tablet 02/24/18 Quetiapine Fumarate [Seroquel -] 25 mg PO HS #30 tablet 02/24/18 Trazodone HCl 100 mg PO HS #30 tablet 02/24/18 propRANOLol HCL [Inderal -] 20 mg PO BID #60 tablet 02/24/18 Bupropion HCl [Bupropion HCl Sr] 150 mg PO BID 03/07/18 Quinapril HCl [Accupril -] 20 mg PO BID #60 tablet 03/07/18 Active Medications Aspirin (Asa -) 81 mg PO DAILY [facility] Atorvastatin Calcium (Lipitor -) 20 mg PO HS ROXANA Carbidopa/Levodopa (Sinemet *Cr* 25/100 -) 1 combo PO TID ROXANA Divalproex Sodium (Depakote -) 2,000 mg PO HS ROXANA Heparin Sodium (Porcine) (Heparin -) 5,000 unit SQ TID ROXANA Insulin Aspart (Novolog Vial Sliding Scale -) 0 vial SQ ACHS ROXANA; Protocol Metformin HCl (Glucophage -) 500 mg PO BID ROXANA Non-Formulary Medication (Bupropion Hcl [Bupropion Hcl Sr]) 150 mg PO BID ROXANA Propranolol HCl (Inderal -) 20 mg PO BID ROXANA Quetiapine Fumarate (Seroquel -) 25 mg PO HS ROXANA Quinapril HCl (Accupril -) 20 mg PO BID ROXANA Trazodone HCl (Desyrel -) 100 mg PO HS [facility] Laboratory Results - last 24 hr 03/14/18 03/14/18 14:45 14:45 WBC 8.9 RBC 4.34 Hgb 13.0 Hct 39.0 MCV 89.7 MCH 29.9 MCHC 33.3 RDW 13.7 Plt Count 206 MPV 10.1 Absolute Neuts (auto) 5.8 Neutrophils % 65.3 Lymphocytes % 22.3 D Monocytes % 9.8 Eosinophils % 1.9 D Basophils % 0.7 Nucleated RBC % 0 Sodium 139 Potassium 4.2 Chloride 104 Carbon Dioxide 27 Anion Gap 8 BUN 11 D Creatinine 0.9 D Creat Clearance w eGFR > 60 Random Glucose 127 H Calcium 8.6 Total Bilirubin 0.3 D AST 7 L ALT 8 L Alkaline Phosphatase 66 Creatine Kinase 41 Troponin I < 0.02 Total Protein 6.3 L Albumin 3.3 L ASSESSMENT AND PLAN: 57 yom with pMHx of Parkinson Disease (recently diagnosed), high cholesterol, bipolar disorder, hypertension, IDDM and COPD admitted with gait instability, reported recurrent falls and concern for inability to care at home. -Gait instability -Recurrent reported falls -Inability to care for at home -recently diagnosed Parkinson's disease -IDDM -COPD -HTN -HLD -Bipolar disorder Plan: Neuro exam non concerning. Neuro checks, MRI L-spine, neurology input. PT eval. Recurrent admissions with the same, will likely benefit from shelter safer disposition, ?assisted living, discuss with social work in AM. Continue home meds and insulin, ISS,diabetic diet. COntinue sinemet, follow up with neurology if ?concerns for parkinson's disease , (exam not convincing) DVTPPX with heparin PT eval dispo planning in 24-48 hours pending above w/u, and Neurology input. Plan discussed with patient in detail, all questions answered. Admit to obs. Total admit time 55 min.
--- NOTE | 2018-03-14 20:28 | CON.NEURO ---
Consult Consult Specialty:: NEUROLOGY-[facility] Reason for Consultation:: Falls - History of Present Illness History of Present Illness: 58 yom with PMhx of ?Parkinson Disease (recently diagnosed), high cholesterol, bipolar disorder, hypertension, IDDM and COPD, recently admitted with gait instability and inability to get up when was able to walk 100 feet with PT, comes back with similar compliant. was not able to get up from couch, called EMS and was brought to ED. Has chronic back pain radiating down both thighs with intermittent LE tingling at night with no recent change. Denies any new weakness, numbness, urinary or bowel symptoms, falls, trauma, fevers, chills or new concerns. Currently at baseline but lives with his 99 yo mother and 65 yo brother and is concerned about his care at home. He reports worsening gait since 08/26-that he has fallen 20 times since, in last few days is unable to propel himself off chair and yesterday fell. Denies worseninmg bradykinesia/ tremors. - Alcohol/Substance Use Hx Alcohol Use: No (ETOH '88) - Smoking History Smoking history: Never smoked Have you smoked in the past 12 months: No Home Medications - Allergies Allergies/Adverse Reactions: Allergies Allergy/AdvReac Type Severity Reaction Status Date / Time No Known Allergies Allergy Verified 03/04/18 07:52 - Home Medications Home Medications: Ambulatory Orders Aspirin 81 mg PO DAILY 02/23/18 Atorvastatin Ca [Lipitor] 20 mg PO HS 02/23/18 Insulin Glargine,Hum.rec.anlog [Basaglar Kwikpen U-100] 5 unit SQ HS 02/23/18 Carbidopa/Levodopa *Cr* 25/100 [Sinemet *Cr* 25/100 -] 1 combo PO TID #120 tablet.er 02/24/18 Divalproex [Depakote -] 2,000 mg PO HS #30 tablet.ec 02/24/18 Metformin HCl [Glucophage] 500 mg PO BID #60 tablet 02/24/18 Quetiapine Fumarate [Seroquel -] 25 mg PO HS #30 tablet 02/24/18 Trazodone HCl 100 mg PO HS #30 tablet 02/24/18 propRANOLol HCL [Inderal -] 20 mg PO BID #60 tablet 02/24/18 Bupropion HCl [Bupropion HCl Sr] 150 mg PO BID 03/07/18 Quinapril HCl [Accupril -] 20 mg PO BID #60 tablet 03/07/18 Physical Exam-Neuro Vital Signs: Vital Signs Temperature 98 F 03/14/18 12:42 Pulse Rate 70 03/14/18 18:16 Respiratory Rate 16 03/14/18 18:16 Blood Pressure 135/84 03/14/18 18:16 O2 Sat by Pulse Oximetry (%) 100 03/14/18 18:16 Labs: CBC, BMP 03/14/18 14:45 03/14/18 14:45 - Neuro Exam Mini Mental Exam: Well-oriented, HIF-intact Cranial Nerves II-XII Intact: No (slight diminished right NLF) DTR's: 1+ Left Bicep, 1+ Right Bicep, 1+ Left Tricep, 1+ Right Tricep, 1+ Left Brachioradialis, 1+ Right Brachioradialis, 1+ Left Achilles, 1+ Right Achilles Movement Disorders: Tremors (+ fine bilat UE postural tremors) Motor Strength: 5/5: Left Arm, Right Arm, Left Leg, Right Leg Gait: Other (Has difficulty propelling himself up from bed, wide based short steps+pull test) Imaging - Results Cat Scan: Report Reviewed (Generalized cerebral and cerebellar volume loss) Assessment/Plan Pt. with dx. of PD, recurrent falls/gait d/o. His falls are likley due to absence of postural reflexes as seen in PD, possibly complicated by cerebellar atrophy. Other entities to consider are multisystem atrophy(not sure how he has responded to Sinemet). Less likely lumbar spine disease cause of falls. Plan: Increase Sinemet to 25/100, qid Will add Requip 0.25mg tid Will consider discontinuing Wellbutrin-may worsen PD MRI brain to look for abn in brain stem/midbrain. Thank you, Radha Mcpherson MD
[2018-03-14] MEDS ORDERED: traZODone HCL 50 MG TABLET (FP) ONE (21:50)
[2018-03-14] MEDS ORDERED: traZODone HCL 100 MG TABLET (FP) PO SCH (22:00)
[2018-03-14] MEDS ORDERED: PATIENT'S OWN MEDICATION (NON-FORMULARY) (Bupropion Hcl [Bupropion Hcl Sr] 150 MG) PO SCH (22:00)
[2018-03-14] MEDS ORDERED: QUEtiapine FUMARATE 25 MG TABLET (FP) PO SCH (22:00)
[2018-03-14] MEDS ORDERED: DIVALPROEX SODIUM 500 MG TABLET E.C. PO SCH (22:00)
[2018-03-14] MEDS ORDERED: ATORVASTATIN CA 20 MG TABLET (FP) PO SCH (22:00)
[2018-03-14] MEDS: QUINAPRIL HCL 20 MG TABLET (FP) PO SCH (23:11)
[2018-03-14] MEDS: metFORMIN HCL 500 MG TABLET (FP) PO SCH (23:12)
[2018-03-14] MEDS: HEPARIN NA (PORCINE) 5,000 UNITS/ML 1ML VIAL SQ SCH (23:12)
[2018-03-14] MEDS: INSULIN SLIDING SCALE (NOVOLOG) 1 VIAL SQ SCH (23:13)
[2018-03-15 00:43] VITALS: BMI 27.6
[2018-03-15] MEDS: INSULIN SLIDING SCALE (NOVOLOG) 1 VIAL SQ SCH ×3 (06:27→17:24)
[2018-03-15] MEDS: HEPARIN NA (PORCINE) 5,000 UNITS/ML 1ML VIAL SQ SCH ×2 (06:28→15:22)
[2018-03-15 07:21] LABS: BASO % 0.7 % (0-2.0); EOS % 2.6 % (0-4.5); HEMATOCRIT 38.1 % (35.4-49); HEMOGLOBIN 12.9 GM/dL (11.7-16.9); LYMPH % 29.8 % (8-40); MCH 30.3 pg (25.7-33.7); MCHC 33.9 g/dl (32.0-35.9); MEAN CELL VOLUME 89.1 fl (80-96); MEAN PLT VOLUME 10.2 fl (7.5-11.1); MONO % 10.3 % (3.8-10.2); NEUT % 56.6 % (42.8-82.8); PLATELET COUNT 187 K/MM3 (134-434); RBC 4.27 M/mm3 (4.00-5.60); RDW 13.5 % (11.9-15.9); WHITE BLOOD COUNT 8.9 K/mm3 (4.0-10.0)
[2018-03-15 07:47] LABS: POTASSIUM 4.3 mmol/L (3.5-5.1)
[2018-03-15 07:55] LABS: ANION GAP 7 (8-16); BLOOD UREA NITROGEN 9 mg/dL (7-18); CALCIUM 8.9 mg/dL (8.5-10.1); CHLORIDE 105 mmol/L (98-107); CO2 29 mmol/L (21-32); CREATININE 0.8 mg/dL (0.7-1.3); GLUCOSE,RANDOM 109 mg/dL (74-106); SODIUM 141 mmol/L (136-145)
--- NOTE | 2018-03-15 08:48 | PN ---
Teaching Attending Note Name of Resident: Clarence Acuña ATTENDING PHYSICIAN STATEMENT I saw and evaluated the patient. I reviewed the resident's note and discussed the case with the resident. I agree with the resident's findings and plan as documented with exceptions below. SUBJECTIVE: Patient seen and examined. no falls or new concerns OBJECTIVE: Vital Signs Period Temp Pulse Resp BP Sys/Irizarry Pulse Ox Last 24 Hr 97.3 F-98.6 F 64-78 16-65 129-156/71-90 98-100 Intake & Output 03/12/18 03/13/18 03/14/18 03/15/18 23:59 23:59 23:59 23:59 Intake Total 240 Output Total 100 Balance 140 Weight 227 lb 5 oz General: ambulating, no concerns Musculoskeletal: no spinal tenderness Neuro: unchanged exam Home Medications Medication Instructions Recorded Aspirin 81 mg PO DAILY 02/23/18 Atorvastatin Ca [Lipitor] 20 mg PO HS 02/23/18 Insulin Glargine,Hum.rec.anlog 5 unit SQ HS 02/23/18 [Basaglar Kwikpen U-100] Carbidopa/Levodopa *Cr* 25/100 1 combo PO TID #120 tablet.er 02/24/18 [Sinemet *Cr* 25/100 -] Divalproex [Depakote -] 2,000 mg PO HS #30 tablet.ec 02/24/18 Metformin HCl [Glucophage] 500 mg PO BID #60 tablet 02/24/18 Quetiapine Fumarate [Seroquel -] 25 mg PO HS #30 tablet 02/24/18 Trazodone HCl 100 mg PO HS #30 tablet 02/24/18 propRANOLol HCL [Inderal -] 20 mg PO BID #60 tablet 02/24/18 Bupropion HCl [Bupropion HCl Sr] 150 mg PO BID 03/07/18 Quinapril HCl [Accupril -] 20 mg PO BID #60 tablet 03/07/18 Active Medications Aspirin (Asa -) 81 mg PO DAILY [facility] Atorvastatin Calcium (Lipitor -) 20 mg PO [facility] Last Admin: 03/14/18 23:13 Dose: 20 mg Bupropion HCl (Wellbutrin Xl -) 300 mg PO DAILY [facility] Carbidopa/Levodopa (Sinemet *Cr* 25/100 -) 1 combo PO TID [facility] Last Admin: 03/15/18 06:28 Dose: 1 combo Divalproex Sodium (Depakote -) 2,000 mg PO [facility] Last Admin: 03/14/18 23:11 Dose: 2,000 mg Heparin Sodium (Porcine) (Heparin -) 5,000 unit SQ TID [facility] Last Admin: 03/15/18 06:28 Dose: 5,000 unit Insulin Aspart (Novolog Vial Sliding Scale -) 0 vial SQ ACHS [facility]; Protocol Last Admin: 03/15/18 06:27 Dose: Not Given Metformin HCl (Glucophage -) 500 mg PO BID [facility] Last Admin: 03/14/18 23:12 Dose: 500 mg Propranolol HCl (Inderal -) 20 mg PO BID [facility] Last Admin: 03/14/18 23:13 Dose: 20 mg Quetiapine Fumarate (Seroquel -) 25 mg PO [facility] Last Admin: 03/14/18 23:14 Dose: 25 mg Quinapril HCl (Accupril -) 20 mg PO BID [facility] Last Admin: 03/14/18 23:11 Dose: 20 mg Trazodone HCl (Desyrel -) 100 mg PO [facility] Last Admin: 03/14/18 23:12 Dose: 100 mg Abnormal Lab Results 03/14/18 03/15/18 03/15/18 14:45 06:30 06:30 Monocytes % 10.3 H Anion Gap 7 L Random Glucose 127 H 109 H AST 7 L ALT 8 L Total Protein 6.3 L Albumin 3.3 L MRI brain/L-spine results reviewed ASSESSMENT AND PLAN: 57 yom with pMHx of Parkinson Disease (recently diagnosed), high cholesterol, bipolar disorder, hypertension, IDDM and COPD admitted with gait instability, reported recurrent falls and concern for inability to care at home. -Gait instability -Recurrent reported falls -Inability to care for at home -recently diagnosed Parkinson's disease -IDDM -COPD -HTN -HLD -Bipolar disorder Plan: Discussed with Dr. Mcpherson, recommend increase sinemet QID and start requip 0.25 mg TID. Ok to continue with current psych meds as discussed. Also advised patient to discuss with his psychiatrist to get off wellbutrin. MRI Lspine noted, Dr. Li's input appreciated. PT arben noted, walked 100 ft. NOt a candidate for SNF as discussed with CM D/c home with outpatient PT, plan discussed with patient in detail
[2018-03-15] MEDS ORDERED: ASPIRIN 81 MG CHEWABLE TABLETS PO SCH (10:00)
[2018-03-15] MEDS: QUINAPRIL HCL 20 MG TABLET (FP) PO SCH (10:35)
[2018-03-15] MEDS: metFORMIN HCL 500 MG TABLET (FP) PO SCH (10:36)
--- NOTE | 2018-03-15 11:37 | PN ---
Progress Note (short form) - Note Progress Note: NEUROSURGERY CONSULT DICTATED Recently diagnosed Parkinson Disease, bipolar disorder, hypertension, IDDM, COPD , hypercholesterolemia was recently admitted with gait instability and inability to get up. Chronic back pain radiating down both anterior thighs, shins, and ankles with intermittent LE tingling. Denies any new weakness, numbness, urinary or bowel symptoms. Back vs leg pain 70-30. PE: AF, VSS; speech mildly dysarthric; A/A/Ox3 HEENT- NC/AT; Neck- supple; Cor- RRR; Lungs- CTA; Abd- benign; Ext- no sign of DVT CN- intact; Motor- 5/5 without drift; increased tone L UE/LE > R; Sensation- intact LT; DTR- hyporeflexia B; Gait- difficulty getting up from sitting position Labs reviewed. Brain MRI- generalized atrophy LS spine MRI- multilevel DDD, worst at L4-5; broad L3-4 disc bulge L > R with moderate lateral recess and foramenal narrowing; broad L4-5 disc bulge with central annular tear and moderate stenosis; hemagioma L5; facet arthrosis Chronic lumbar DDD/stenosis with B radiculopathy PT Pain management for elective trial of EPSI Neurology f/u and tx of Parkinson's If no improvement of mobility despite the above consider EMG/NCS LE to r/o radiculopathy vs diabetic neuropathy Could consider trial of gabapentin Neurosurgical intervention should be reserved for intractable pain and EMG confirming radiculopathy, though in face of Parkinson's dz, medical risks from surgical intervention will be higher
--- NOTE | 2018-03-15 11:51 | EKG ---
Test Reason : Blood Pressure : / mmHG Vent. Rate : 074 BPM Atrial Rate : 074 BPM P-R Int : 160 ms QRS Dur : 106 ms QT Int : 396 ms P-R-T Axes : 031 -38 019 degrees QTc Int : 439 ms NORMAL SINUS RHYTHM POSSIBLE LEFT ATRIAL ENLARGEMENT LEFT AXIS DEVIATION PULMONARY DISEASE PATTERN INCOMPLETE RIGHT BUNDLE BRANCH BLOCK ABNORMAL ECG WHEN COMPARED WITH ECG OF 04-MAR-2018 09:14, NO SIGNIFICANT CHANGE WAS FOUND Confirmed by CHARLA SAHNI MD ([id number]) on 03/15/2018 11:51:38 AM Referred By: Confirmed By:CHARLA SAHNI MD
--- NOTE | 2018-03-15 15:53 | DS ---
Physical Exam: SUBJECTIVE: Patient seen and examined at bedside. No acute events. Pt feels well at this time. OBJECTIVE: Vital Signs Period Temp Pulse Resp BP Sys/Irizarry Pulse Ox Last 24 Hr 97.3 F-98.6 F 64-78 16-65 129-156/71-92 99-100 PHYSICAL EXAM exam unchanged Gen: found standing in room in NAD HEENT: NCAT, PERRLA, EOMI Neck: supple, no jvd Cardiac: RRR, normal s1s2, no m/r/g Pulm: cta b/l Abd: soft nontender nondistended Ext: 2+ pulses, no edema Neuro: aao x 3, strength 5/5 throughout, sensation intact throughout LABS Laboratory Results - last 24 hr 03/14/18 03/14/18 03/14/18 14:45 18:39 18:39 WBC RBC Hgb Hct MCV MCH MCHC RDW Plt Count MPV Absolute Neuts (auto) Neutrophils % Lymphocytes % Monocytes % Eosinophils % Basophils % Nucleated RBC % ESR Sodium 139 Potassium 4.2 Chloride 104 Carbon Dioxide 27 Anion Gap 8 BUN 11 D Creatinine 0.9 D Creat Clearance w eGFR > 60 POC Glucometer Random Glucose 127 H Calcium 8.6 Total Bilirubin 0.3 D AST 7 L ALT 8 L Alkaline Phosphatase 66 Creatine Kinase 41 Troponin I < 0.02 C-Reactive Protein < 0.3 Total Protein 6.3 L Albumin 3.3 L Valproic Acid 53.374 03/14/18 03/14/18 03/15/18 18:39 21:34 06:17 WBC RBC Hgb Hct MCV MCH MCHC RDW Plt Count MPV Absolute Neuts (auto) Neutrophils % Lymphocytes % Monocytes % Eosinophils % Basophils % Nucleated RBC % ESR 8 Sodium Potassium Chloride Carbon Dioxide Anion Gap BUN Creatinine Creat Clearance w eGFR POC Glucometer 225 132 Random Glucose Calcium Total Bilirubin AST ALT Alkaline Phosphatase Creatine Kinase Troponin I C-Reactive Protein Total Protein Albumin Valproic Acid 03/15/18 03/15/18 03/15/18 06:30 06:30 11:34 WBC 8.9 RBC 4.27 Hgb 12.9 Hct 38.1 MCV 89.1 MCH 30.3 MCHC 33.9 RDW 13.5 Plt Count 187 MPV 10.2 Absolute Neuts (auto) 5.0 Neutrophils % 56.6 Lymphocytes % 29.8 D Monocytes % 10.3 H Eosinophils % 2.6 Basophils % 0.7 Nucleated RBC % 0 ESR Sodium 141 Potassium 4.3 Chloride 105 Carbon Dioxide 29 Anion Gap 7 L BUN 9 Creatinine 0.8 Creat Clearance w eGFR POC Glucometer 199 Random Glucose 109 H Calcium 8.9 Total Bilirubin AST ALT Alkaline Phosphatase Creatine Kinase Troponin I C-Reactive Protein Total Protein Albumin Valproic Acid HOSPITAL COURSE: Date of Admission:03/14/18 Date of Discharge: 03/15/18 Pt is a 58 y/o M with PMH Parkinson's (not definitively diagnosed; was told he might have by a neurologist), hypertension, hyperlipidemia, Bipolar, and COPD with recent admission for similar complaint who has been worked up extensively by outside neurologist who presented to ED with complaint of weakness. Pt is being placed on Obs for evaluation. On previous visit, pt complained of inability to walk, however, he was able to walk 100' with PT. This visit, he states he was unable to rise from chair. He had no weakness on exam. Lumbar spinal MRI was significant for lumbar spinal degenerative disc disease. and Neuro Neurosurg were consulted. Pt's sinemet was made 25/100. Neurology considered d/c'ing wellbutrin and attributed his instability to lack of truncal reflexes as seen in PD. Neurosurgery opted to follow up with pt as an out pt. Pt's HTN was treated with propranalol. He was on ASA for cardiac benefit. HLD was treated with lipitor. COPD was stable and did not require treatment. DM was treated with metformin and ISS. Pt's Bipolar disorder was treated with home meds: quetiapine, quinipril, trazodone, buproprion. Pt's home Depakote was continued. Pt is in no distress and is stable for d/c home. Minutes to complete discharge: 30 Discharge Summary Reason For Visit: WEAKNESS Current Active Problems Weakness (Acute) Condition: Good - Instructions Diet, Activity, Other Instructions: You were in the hospital because of an inability to get up from a chair. You are going to need to follow up with physical therapy and out pt rehab. Make sure you follow up with your neurologist, Dr. Mcpherson and the neurosurgeon, Dr. José Luis Li. Your sinemet was changed to 25/100. Take this medication 4 times daily. Your Wellbutrin was changed to 300 mg daily. Schedule an appointment to see physical therapy . Referrals: Karen Reyes MD [Primary Care Provider] - 1 Week Broderick Mcpherson MD [Staff Physician] - 1 Week Bhanu Li MD [Staff Physician] - 1 Week Disposition: HOME - Home Medications Comprehensive Discharge Medication List: Ambulatory Orders Aspirin 81 mg PO DAILY 02/23/18 Atorvastatin Ca [Lipitor] 20 mg PO HS 02/23/18 Insulin Glargine,Hum.rec.anlog [Basaglar Kwikpen U-100] 5 unit SQ HS 02/23/18 Divalproex [Depakote -] 2,000 mg PO HS #30 tablet.ec 02/24/18 Metformin HCl [Glucophage] 500 mg PO BID #60 tablet 02/24/18 Quetiapine Fumarate [Seroquel -] 25 mg PO HS #30 tablet 02/24/18 Trazodone HCl 100 mg PO HS #30 tablet 02/24/18 propRANOLol HCL [Inderal -] 20 mg PO BID #60 tablet 02/24/18 Quinapril HCl [Accupril -] 20 mg PO BID #60 tablet 03/07/18 Bupropion HCl [Wellbutrin Xl -] 300 mg PO DAILY #30 tab.sr.24h 03/15/18 Carbidopa/Levodopa *Cr* 25/100 [Sinemet *Cr* 25/100 -] 1 combo PO TID #120 tablet.er 03/15/18 Ropinirole HCl [Requip] 0.25 mg PO TID #90 tablet 03/15/18 This patient is new to me today: No Emergency Visit: No Critical Care patient: No - Discharge Referral Referred to [facility] Med P.C.: No
[2018-03-15 18:54] VITALS: BP 168/95; PULSE 77; TEMP 98.1
--- NOTE | 2018-03-15 23:32 | CONS ---
DATE OF CONSULTATION: DATE OF DICTATION: 03/15/2018 REQUESTING PHYSICIAN: Shade Vega M.D. CONSULTING PHYSICIAN: Bhanu Mars M.D., neurosurgery CHIEF COMPLAINT: Back pain and sciatica. HISTORY OF PRESENT ILLNESS: The patient is a 58-year-old right-handed male with recently diagnosed Parkinson disease, bipolar disorder, hypertension, diabetes, COPD, and hypercholesterolemia who was recently admitted for gait instability and inability to get up from sitting and recumbent position. He was sent to rehabilitation where he had improved. However, he again developed difficulty in terms of gait as well as getting up more recently again. He has chronic lower back pain for a couple decades, going down both anterior thighs, shins and ankles. He also has lower extremity tingling without associated weakness or numbness. He has no new bowel, bladder dysfunction. Back versus leg pain is 70-30. He has undergone extensive rehabilitation, but he has not undergone pain management. PAST MEDICAL HISTORY: Significant for Parkinson disease, diabetes, COPD, hypertension, bipolar disorder, hypercholesterolemia. MEDICATION: Include Accupril, Depakote, Wellbutrin, Desyrel, Seroquel, Inderal, Glucophage, Sinemet, Lipitor, insulin, baby aspirin. ALLERGIES: No known drug allergies. FAMILY HISTORY: Significant for spinal disease, stenosis in his mother, and lumbar spinal stenosis in his brother. SOCIAL HISTORY: He quit smoking 2 decades ago. Used to be a fairly heavy smoker. He has also used some marijuana in the past. He drinks alcohol socially. He does not work. He lives at home. He takes care of his elderly mother. REVIEW OF SYSTEMS: Otherwise negative for other major constitutional, head/neck, cardiovascular, pulmonary, gastrointestinal, genitourinary, endocrinologic, neurologic, or psychological problems except for the above. PHYSICAL EXAMINATION: Vital signs: Temperature is 97.6, blood pressure 151/92 with pulse rate of 77, O2 saturation is 99% on room air. HEENT: Normocephalic, atraumatic, anicteric. Neck: Supple with no carotid bruit. Coronary: Regular rhythm. Lungs: Clear bilaterally. Abdomen: Benign. Extremities: No signs of DVT. Pulses 1+ and symmetric. Neurologic: He is awake, alert, oriented x4. His speech is slightly dysarthric. Cranial nerves examination intact 2-12. Motor examination shows 5/5 strength. He has increased left upper and lower extremities greater than right. Deep tendon reflexes are 1+, hyporeflexive throughout. There is no pathological long tract sine. Sensory examination is intact to light touch. LABORATORY EXAMINATION: White blood cell count 8.9, ESR 8, hemoglobin 12.9, platelet count 187,000. BUN and creatinine are 9 and 0.8, respectively. Sodium 141. C-reactive protein is less than 0.3. MRI of the brain demonstrated moderate generalized cerebral atrophy with no acute ischemia or mass lesion. MRI of the lumbar spine demonstrated multilevel degenerative disk disease from L1-2 to L5-S1. There is the worse degenerative disk space narrowing at L4-5 which is broad-based disk bulge that was moderately recess stenosis. There is also essential anular tear at this level. There is also moderate substantial and stenosis at L3-4, left greater than right. Hemangioma is noted. IMPRESSION: 1. Lumbar spinal stenosis from degenerative disk disease and facet arthrosis at L3-4 to L4-5, causing lower back pain lumbar radiculopathy. 2. Idiopathic Parkinson disease. 3. Diabetes, diabetic peripheral neuropathy. 4. Chronic obstructive pulmonary disease. 5. Hypertension. 6. Bipolar disorder. 7. Hypercholesterolemia. RECOMMENDATION: The patient presents with chronic lower back pain and sciatica. He has no significant neurological deficit associated with lumbar spinal stenosis at this time. Patient is bothered by symptoms and he has problem with his posture as well. He especially has difficulty getting up from a recumbent or a sitting position. Referral for physical therapy could be considered. He can also consider pain management for possible epidural steroid injection. If there is no improvement with further conservative treatment, including possibly a trial with gabapentin, he could consider baseline EMT and nerve conduction study to rule out radiculopathy versus peripheral neuropathy. If he has significant radiculopathy, without neuropathy, he may be a surgical candidate for decompression. On the other hand, the Parkinson disease does make surgical intervention somewhat more problematic from a general anesthetic and respiratory standpoint after surgery. The above pros and cons of treatment approach was discussed with patient at bedside. He expresses understanding. All questions were answered. BHANU MARS M.D. [id number]
== END 2018-03-15 18:52 | disposition home health service (06) ==
LOC: JER 12:28 → JERBED 17:17 → J5S 20:12
PROVIDERS: ADMIT Hospitalist; ATTEND Hospitalist
PROC: 3E013GC Introduction of Other Therapeutic Substance into Subcutaneous Tissue, Percutaneous Approach (ICD-10-PCS; principal; 2018-03-14)
DX: R53.1 Weakness (principal); R26.2 Difficulty in walking, not elsewhere classified; R29.6 Repeated falls; I10 Essential (primary) hypertension; E78.5 Hyperlipidemia, unspecified; G20 Parkinson's disease; J44.9 Chronic obstructive pulmonary disease, unspecified; E11.42 Type 2 diabetes mellitus with diabetic polyneuropathy; F31.9 Bipolar disorder, unspecified; G40.909 Epilepsy, unspecified, not intractable, without status epilepticus; Z79.4 Long term (current) use of insulin; Z74.2 Need for assistance at home and no other household member able to render care; Z79.82 Long term (current) use of aspirin; Z79.84 Long term (current) use of oral hypoglycemic drugs; Z96.651 Presence of right artificial knee joint; M48.061 Spinal stenosis, lumbar region without neurogenic claudication; M46.96 Unspecified inflammatory spondylopathy, lumbar region; M51.16 Intervertebral disc disorders with radiculopathy, lumbar region
CPT/HCPCS: 36415; 70450-TC; 70551-TC; 72148-TC; 80048; 80053; 80164; 82550; 82962; 84484; 85025; 85651; 86140; 93005; 93010; 96372; 97116-GP; 97161-GP; 99285-25; G0378; J1644

== ENCOUNTER 2019-07-03 18:35 | Emergency (ER) | payer OTHER ==
[2019-07-03 19:02] VITALS: TEMP 97.7; BMI 29.3
--- NOTE | 2019-07-03 20:15 | PDOC ---
Attending Attestation - Resident Resident Name: [place]le - ED Attending Attestation I have performed the following: I have examined & evaluated the patient, The case was reviewed & discussed with the resident, I agree w/resident's findings & plan - HPI HPI: 07/04/19 20:03 see resident hpi - Physicial Exam PE: 07/04/19 20:04 agree with resident exam - Medical Decision Making 07/04/19 20:04 59 yo male s/p mechanical fall with Parkinson's ct head/c spine negative EKG wnl d/c home
[2019-07-03] MEDS ORDERED: ACETAMINOPHEN 500 MG TABLET (FP) PO ONE (20:33)
[2019-07-03] MEDS ORDERED: ACETAMINOPHEN 325 MG TABLET (FP) ONE (20:52)
--- NOTE | 2019-07-03 20:56 | PDOC ---
History of Present Illness - General Chief Complaint: Injury Stated Complaint: FELL Time Seen by Provider: 07/03/19 19:36 History Source: Patient Exam Limitations: No Limitations - History of Present Illness Initial Comments: 07/03/19 20:49 This is a 59 year old male with PMH significant for Parkinson's disease, HTN, HLD, COPD, DM, and Bipolar disorder/Depression. He was brought to the ER via ambulance after he fell down in a parking lot after getting out of his car. He states that his legs started to shake and he felt dizzy. He landed on his back and hit the back of his head. He did not lose consciousness and there were no visual changes. He attributes the fall to his history of Parkinson's, and has had several similar episodes in the past, with the last one occurring a few months ago when he fell down in his bathroom and hit the back of his head. He complains of an associated headache rated 7/10, but no associated palipitations , SOB, abdominal pain, vomiting, or nausea. He has switched neurologists recently and is now seeing Dr. Womack, who he saw last week. He states that he is compliant with all his medications. He is not sure if he has had any recent changes in his medications, and has not had any recent illnesses, no recent travel, and no exposure to sick contacts. He take Levemir 44 units in the morning and Metformin 1000 BD for his DM, and does not monitor his glucose at home. Is this a multiple visit Asthma Patient?: No Past History - Travel Traveled outside of the country in the last 30 days: No Close contact w/someone who was outside of country & ill: No - Past Medical History Allergies/Adverse Reactions: Allergies Allergy/AdvReac Type Severity Reaction Status Date / Time No Known Allergies Allergy Verified 07/03/19 19:02 Home Medications: Ambulatory Orders Aspirin 81 mg PO DAILY 02/23/18 Atorvastatin Ca [Lipitor] 20 mg PO HS 02/23/18 Insulin Glargine,Hum.rec.anlog [Basaglar Kwikpen U-100] 5 unit SQ HS 02/23/18 Divalproex [Depakote -] 2,000 mg PO HS #30 tablet.ec 02/24/18 Metformin HCl [Glucophage] 500 mg PO BID #60 tablet 02/24/18 Quetiapine Fumarate [Seroquel -] 25 mg PO HS #30 tablet 02/24/18 propRANOLol HCL [Inderal -] 20 mg PO BID #60 tablet 02/24/18 traZODone HCL [Trazodone HCl] 100 mg PO HS #30 tablet 02/24/18 Quinapril HCl [Accupril -] 20 mg PO BID #60 tablet 03/07/18 Bupropion HCl [Wellbutrin -] 75 mg PO BID 03/15/18 Carbidopa/Levodopa *Cr* 25/100 [Sinemet *Cr* 25/100 -] 1 combo PO QID #68 tablet.er 03/15/18 Docusate Sodium [Colace] 100 mg PO DAILY 03/15/18 Ropinirole HCl [Requip] 0.25 mg PO TID #42 tablet 03/15/18 Anemia: No Asthma: No Cancer: No CVA: No COPD: No CHF: No Dementia: No Diabetes: Yes GI Disorders: No Disorders: No HTN: Yes Hypercholesterolemia: No Liver Disease: No Psychiatric Problems: Yes Seizures: No Thyroid Disease: No - Surgical History Abdominal Surgery: No Appendectomy: No Cardiac Surgery: No Cholecystectomy: No Lung Surgery: No Neurologic Surgery: No Orthopedic Surgery: Yes (rt leg knee placement) - Immunization History Immunization Up to Date: Yes - Suicide/Smoking/Psychosocial Hx Smoking History: Unknown if ever smoked Have you smoked in the past 12 months: No Hx Alcohol Use: No Drug/Substance Use Hx: Yes (marijuana) Substance Use Type: Cocaine, Marijuana Hx Substance Use Treatment: No Review of Systems - Review of Systems Able to Perform ROS?: Yes Is the patient limited [place]ian proficient: No Constitutional: Yes: Symptoms Reported, See HPI, Chills, Diaphoresis, Fever, Loss of Appetite, Malaise, Night Sweats, Weakness, Weight Stable, Unintentional Wgt. Loss, Unexplained wgt Loss, Other HEENTM: No: Symptoms Reported, See HPI, Eye Pain, Blurred Vision, Tearing, Recent change in vision, Double Vision, Cataracts, Ear Pain, Ocular Prothesis, Ear Discharge, Nose Pain, Nose Congestion, Tinnitus, Nose Bleeding, Hearing Loss , Throat Pain, Throat Swelling, Mouth Pain, Dental Problems, Difficulty Swallowing, Mouth Swelling, Other Respiratory: No: Symptoms reported, See HPI, Cough, Orthopnea, Shortness of Breath, SOB with Exertion, SOB at Rest, Stridor, Wheezing, Productive cough, Hemoptysis, Other Cardiac (ROS): No: Symptoms Reported, See HPI, Chest Pain, Edema, Irregular Heart Rate, Lightheadedness, Palpitations, Syncope, Chest Tightness, Other ABD/GI: No: Symptoms Reported, See HPI, Abdominal Distended, Abd. Pain w/ defecation, Blood Streaked Bowels, Constipated, Diarrhea, Difficulty Swallowing , Nausea, Poor Appetite, Poor Fluid Intake, Rectal Bleeding, Vomiting, Indigestion, Abdominal cramping, Tarry Stools, Other : No: Symptoms Reported, See HPI, Burning, Dysuria, Discharge, Frequency, Flank Pain, Hematuria, Incontinence, Pain, Urgency, Testicular Mass, Testicular Swelling, Lesions, Testicular Pain, Other Musculoskeletal: No: Symptoms Reported, See HPI, Back Pain, Gout, Joint Pain, Joint Swelling, Muscle Pain, Muscle Weakness, Neck Pain, Joint Stiffness, Other Integumentary: No: Symptoms Reported, See HPI, Bruising, Change in Color, Change in Hair/Nails, Dryness, Erythema, Flushing, Lesions, Lumps, Pallor, Pruritus, Rash, Sweating, Other Neurological: Yes: Dizziness Psychiatric: No: Anxiety, Depression, Frequent Crying, Stressors, Sleep Pattern Change, Emotional Problems, Mood Swings, Change in Appetite, Other Endocrine: No: Symptoms Reported, See HPI, Excessive Sweating, Flushing, Intolerance to Cold, Intolerance to Heat, Increased Hunger, Increased Thirst, Increased Urine, Unexplained Weight Gain, Unexplained Weight Loss, Change in Weight, Other Hematologic/Lymphatic: No: Symptoms Reported, See HPI, Anemia, Blood Clots, Easy Bleeding, Easy Bruising, Bleeding Diathesis, Lymph Node Abnormalities, Swollen Glands, Other *Physical Exam - Vital Signs Last Vital Signs Temp Pulse Resp BP Pulse Ox 97.7 F 72 20 134/112 H 100 07/03/19 18:56 07/03/19 20:25 07/03/19 20:25 07/03/19 20:25 07/03/19 20:25 - Physical Exam Comments: 07/03/19 20:58 Orthostatic vitals: Supine: 152/101 (HR 115) Sittin/117 (HR 127) Standin/79 (HR 96) General: Patient is AOx3, pleasant and cooperative Head: 2 inch cut at the back of the head, not actively bleeding Eyes: SHAY, EOM intact, no nystagmus noted Ears: Patent, no DC Nares: Patent, no DC Oropharynx: minor bruising on bottom lip, no active bleeding, moist mucus membranes, no lesions Lungs: Clear B/L CVS: RRR, S1 S2 heard GI: Soft, non tender, normoactive bowel sounds Extremities: no pitting edema Neuro: Motor-5/5 in upper extremities 4/5 in lower extremities Sensory: Intact B/L CN II-XII: Intact Cerebellar: Finger to nose, rapid alternating movements, Romberg's all normal [place] negative Medical Decision Making - Medical Decision Making 07/03/19 21:14 #Fall - Repeated episodes in the past due to legs shaking, no presyncopal symptoms and normal physical exam leads me to believe that this is related to his Parkinson's. Will rule out other causes - Head CT, C Spine - Tylenol for headache - POC Blood Glucose: 138 - EKG to rule out cardiac cause - Wound cleaned with hydrogen peroxide, no active bleeding, no laceration noted *DC/Admit/Observation/Transfer Diagnosis at time of Disposition: Fall - Referrals - Patient Instructions - Post Discharge Activity
--- NOTE | 2019-07-03 21:58 | PDOC ---
*Physical Exam - Vital Signs Last Vital Signs Temp Pulse Resp BP Pulse Ox 97.7 F 72 20 134/112 H 100 07/03/19 18:56 07/03/19 20:25 07/03/19 20:25 07/03/19 20:25 07/03/19 20:25 ED Treatment Course - ADDITIONAL ORDERS Additional order review: Laboratory Results 07/03/19 20:57 POC Glucometer 138 07/03/19 20:57 POC Glucometer 138 - RADIOLOGY Radiology Studies Ordered: Category Date Time Status CERVICAL SPINE CT W/O CONTR [CT] Stat CT Scan 07/03/19 20:[address] WITHOUT CONTRAST [CT] Stat CT Scan 07/03/19 20:23 Ordered - Medications Given in the ED: ED Medications Discontinued Medications Generic Name Dose Route Start Last Admin Trade Name Freq PRN Reason Stop Dose Admin Acetaminophen 975 mg 07/03/19 20:33 07/03/19 20:59 Tylenol - PO 07/03/19 20:34 975 mg ONCE ONE Administration Medical Decision Making - Medical Decision Making 07/03/19 21:[address] Aleman. Patient is a 59 yo male w/ pmh of Parkinson's who presents for evaluation s/p fall earlier this evening. Patient reports fall 2/2 his Parkinson's and denies any neurological symptoms, weakness, palpitations , or other changes before fall. Patient waiting on Head/C-spine CT for dispo at this time. 07/03/19 23:05 CT Head / C-spine negative. No concern for acute process at this time. EKG normal sinus rhythm. Discharging to home. *DC/Admit/Observation/Transfer Diagnosis at time of Disposition: Fall Qualifiers: Encounter type: initial encounter Qualified Code(s): W19.XXXA - Unspecified fall, initial encounter - Discharge Dispostion Disposition: HOME - Referrals - Patient Instructions Printed Discharge Instructions: How to Prevent Falls Additional Instructions: You were evaluated today in the ER after your fall. We performed Head and C- spine CT as well as EKG which were all normal. No concerning findings were found and we believe you are safe for discharge at this time. Please follow-up with primary care provider later this week for further evaluation. You may take over the counter motrin or tylenol per package instructions for pain as needed. Return to ER if any fever, chills, altered mental status, or other concerning symptoms. - Post Discharge Activity
[2019-07-03 23:29] VITALS: BP 147/95; PULSE 74
--- NOTE | 2019-07-04 11:01 | EKG ---
Test Reason : Blood Pressure : / mmHG Vent. Rate : 065 BPM Atrial Rate : 065 BPM P-R Int : 158 ms QRS Dur : 106 ms QT Int : 400 ms P-R-T Axes : 029 -27 008 degrees QTc Int : 416 ms NORMAL SINUS RHYTHM NORMAL ECG WHEN COMPARED WITH ECG OF 14-MAR-2018 18:46, NO SIGNIFICANT CHANGE WAS FOUND Confirmed by CHARLA SAHNI MD ([id number]) on 07/04/2019 11:00:32 AM Referred By: Confirmed By:CHARLA SAHNI MD
== END 2019-07-04 03:16 | disposition home or self-care (01) ==
LOC: JER 18:35
DX: S09.8XXA Other specified injuries of head, initial encounter (principal); I10 Essential (primary) hypertension; E78.5 Hyperlipidemia, unspecified; J44.9 Chronic obstructive pulmonary disease, unspecified; F31.9 Bipolar disorder, unspecified; E11.9 Type 2 diabetes mellitus without complications; Z79.84 Long term (current) use of oral hypoglycemic drugs; G20 Parkinson's disease
CPT/HCPCS: 70450-TC; 72125-TC; 82962; 93005; 93010; 99282-25

== ENCOUNTER 2019-07-23 20:41 | Emergency (ER) | payer OTHER ==
--- NOTE | 2019-07-23 22:01 | PDOC ---
Attending Attestation - Resident Resident Name: MadisonCitlalli - ED Attending Attestation I have performed the following: I have examined & evaluated the patient, The case was reviewed & discussed with the resident, I agree w/resident's findings & plan - HPI HPI: 07/23/19 22:05 see resident hpi - Physicial Exam PE: 07/23/19 22:06 agree with resident exam - Medical Decision Making 07/23/19 22:06 59-year-old male with history of Parkinson's and gait instability status post slip off the bed onto the floor Patient has no complaints related to the fall at this time He is able to stand and bear weight with no pain Patient to be discharged home
--- NOTE | 2019-07-23 22:08 | PDOC ---
History of Present Illness - General Chief Complaint: Injury Stated Complaint: FALL Time Seen by Provider: 07/23/19 21:17 History Source: Patient Exam Limitations: No Limitations - History of Present Illness Initial Comments: 07/23/19 22:32 59y M with PMH of Parkinson's Disease, HTN, HLD, COPD, DM, and Bipolar Disorder/ Depression BIBA after not being able to get up from the couch. Pt states that he tried getting up but could not so he slid off the couch. His girlfriend called EMS. Pt states that he has been having this problem for 2 years and he follows with his neurologist. He denies LOC, numbness/tingling, urinary incontinence, back pain, urinary retention, chest pain, sob, fevers, chills, leg pain. He does not have any active complaints at this time. PMD: Amy Neuro: Pauly PMH: see hpi Meds: see med rec Allergies: nkda Past History - Past Medical History Allergies/Adverse Reactions: Allergies Allergy/AdvReac Type Severity Reaction Status Date / Time No Known Allergies Allergy Verified 07/03/19 19:02 Home Medications: Ambulatory Orders Aspirin 81 mg PO DAILY 02/23/18 Atorvastatin Ca [Lipitor] 20 mg PO HS 02/23/18 Insulin Glargine,Hum.rec.anlog [Basaglar Kwikpen U-100] 5 unit SQ HS 02/23/18 Divalproex [Depakote -] 2,000 mg PO HS #30 tablet.ec 02/24/18 Metformin HCl [Glucophage] 500 mg PO BID #60 tablet 02/24/18 Quetiapine Fumarate [Seroquel -] 25 mg PO HS #30 tablet 02/24/18 propRANOLol HCL [Inderal -] 20 mg PO BID #60 tablet 02/24/18 traZODone HCL [Trazodone HCl] 100 mg PO HS #30 tablet 02/24/18 Quinapril HCl [Accupril -] 20 mg PO BID #60 tablet 03/07/18 Bupropion HCl [Wellbutrin -] 75 mg PO BID 03/15/18 Carbidopa/Levodopa *Cr* 25/100 [Sinemet *Cr* 25/100 -] 1 combo PO QID #68 tablet.er 03/15/18 Docusate Sodium [Colace] 100 mg PO DAILY 03/15/18 Ropinirole HCl [Requip] 0.25 mg PO TID #42 tablet 03/15/18 Anemia: No Asthma: No Cancer: No CVA: No COPD: No CHF: No Dementia: No Diabetes: Yes GI Disorders: No Disorders: No HTN: Yes Hypercholesterolemia: No Liver Disease: No Psychiatric Problems: Yes Seizures: No Thyroid Disease: No - Surgical History Abdominal Surgery: No Appendectomy: No Cardiac Surgery: No Cholecystectomy: No Lung Surgery: No Neurologic Surgery: No Orthopedic Surgery: Yes (rt leg knee placement) - Immunization History Immunization Up to Date: Yes - Psycho Social/Smoking Cessation Hx Smoking History: Unknown if ever smoked Have you smoked in the past 12 months: No Hx Alcohol Use: No Drug/Substance Use Hx: Yes (marijuana) Substance Use Type: Cocaine, Marijuana Hx Substance Use Treatment: No Review of Systems - Review of Systems Constitutional: No: Symptoms Reported HEENTM: No: Symptoms Reported Respiratory: No: Symptoms reported Cardiac (ROS): No: Symptoms Reported ABD/GI: No: Symptoms Reported : No: Symptoms Reported Musculoskeletal: Yes: See HPI Integumentary: No: Symptoms Reported Neurological: No: Symptoms reported *Physical Exam - Physical Exam General Appearance: Yes: Nourished, Appropriately Dressed. No: Apparent Distress HEENT: positive: EOMI, SHAY, Normal ENT Inspection Neck: positive: Trachea midline, Supple Respiratory/Chest: positive: Lungs Clear, Normal Breath Sounds. negative: Crackles, Rales, Rhonchi, Stridor, Wheezing Cardiovascular: positive: Regular Rhythm, Regular Rate, S1, S2. negative: Edema , JVD, Murmur Vascular Pulses: Dorsalis-Pedis (R): 2+, Doralis-Pedis (L): 2+ Gastrointestinal/Abdominal: positive: Normal Bowel Sounds, Soft. negative: Tender Musculoskeletal: negative: CVA Tenderness, Decreased Range of Motion, Muscle Spasm, Vertebral Tenderness Extremity: positive: Normal Capillary Refill. negative: Swelling, Calf Tenderness, Erythema Integumentary: positive: Normal Color, Dry, Warm Neurologic: positive: platform man II-XII NML intact, Fully Oriented, Alert, Normal Mood/ Affect, Normal Response, Motor Strength 5/5 Medical Decision Making - Medical Decision Making 07/23/19 22:41 59y M with PMH of Parkinson's Disease presenting after slipping off the couch. pt does not have active complaints at this time. has had symptoms for 2 years. Does not need labs or imaging at this time. pt has neurology follow up and will advise patient to make appointment this week. Pt able to stand and take a few steps here in ED without assistance. Safe for dc home. Pt agrees to plan. Provided return precautions. dispo: home Discharge - Discharge Information Problems reviewed: Yes Clinical Impression/Diagnosis: Parkinsons disease Condition: Good Disposition: HOME - Admission No - Follow up/Referral Referrals: Karen Reyes MD [Primary Care Provider] - Lacy Coats MD [Staff Physician] - - Patient Discharge Instructions Patient Printed Discharge Instructions: How to Prevent Falls Additional Instructions: You were seen in the emergency room today after slipping off the couch. I highly recommend that you see your neurologist this week regarding the Parkinson's Disease and if your medications need to be changed or increased. Also make an appointment with Dr. Reyes. Come back to the emergency room if you have increasing leg pain, have numbness/ tingling, have difficulty urinating or if any new or concerning symptom develops. Thank you - Post Discharge Activity
[2019-07-23 22:26] VITALS: BP 132/78; PULSE 88; TEMP 98.1; BMI 34.7
== END 2019-07-24 01:39 | disposition home or self-care (01) ==
LOC: JER 20:41
DX: G20 Parkinson's disease (principal); W08.XXXA Fall from other furniture, initial encounter; Y93.89 Activity, other specified; Y92.038 Other place in apartment as the place of occurrence of the external cause; Y99.8 Other external cause status; I10 Essential (primary) hypertension; E78.5 Hyperlipidemia, unspecified; E11.9 Type 2 diabetes mellitus without complications; Z79.4 Long term (current) use of insulin; J44.9 Chronic obstructive pulmonary disease, unspecified; R31.9 Hematuria, unspecified
CPT/HCPCS: 99281-25

== ENCOUNTER 2021-12-06 19:27 | Inpatient (IN) | payer OTHER ==
[2021-12-06] MEDS ORDERED: ACETAMINOPHEN 1000 MG/100 ML BAG IVPB ONE (20:46)
[2021-12-06] MEDS ORDERED: DIPHTH,PERTUSS(ACELL),TET 0.5 ML DISP.SYRIN IM ONE ×2 (20:48→21:09)
[2021-12-06] MEDS ORDERED: morphine CARPU-JECT 4 MG/1 ML DISP.SYRIN IVPUSH ONE (20:55)
[2021-12-06 21:00] LABS: EOS % 0.3 % (0-4.5); HEMOGLOBIN 11.8 GM/dL (11.7-16.9); LYMPH % 16.1 % (8-40); MCH 28.3 pg (25.7-33.7); MCHC 32.9 g/dl (32.0-35.9); MEAN PLT VOLUME 8.8 fl (7.5-11.1); MONO % 9.5 % (3.8-10.2); NEUT % 73.1 % (42.8-82.8); PLATELET COUNT 236 10^3/uL (134-434); RBC 4.18 M/mm3 (4.00-5.60); RDW 16.2 % (11.9-15.9); WHITE BLOOD COUNT 12.7 K/mm3 (4.0-10.0)
[2021-12-06] MEDS ORDERED: morphine SULFATE 4 MG/ML VIAL ONE (21:08)
[2021-12-06] MEDS ORDERED: ACETAMINOPHEN INJECTION 100 ML IVPB ONE (21:09)
[2021-12-06 21:13] LABS: ACTIVATED PTT 34.6 SECONDS (25.2-36.5); INR 1.01 (0.83-1.09); PROTHROMBIN TIME (PATIENT) 11.6 SEC (9.7-13.0)
[2021-12-06 21:21] LABS: ALBUMIN 3.2 g/dl (3.4-5.0); CALCIUM 8.6 mg/dL (8.5-10.1)
[2021-12-06 21:24] LABS: CREATININE 1.2 mg/dL (0.55-1.3)
[2021-12-06 21:26] LABS: TOT PROT 6.5 g/dl (6.4-8.2)
[2021-12-06 21:27] LABS: BILIRUBIN,TOTAL 0.6 mg/dL (0.2-1)
[2021-12-06] MEDS ORDERED: HYDROmorphone HCL CARPU-JECT 2 MG/1 ML DISP.SYRIN IVPUSH ONE (22:34)
[2021-12-06] MEDS ORDERED: HYDROmorphone HCl 2 MG/ML VIAL ONE (22:47)
[2021-12-07] MEDS ORDERED: LIDOCAINE HCL 2% (50ML VIAL) SQ ONE (01:05)
[2021-12-07] MEDS ORDERED: HYDROmorphone HCl 2 MG/ML VIAL ONE (01:10)
[2021-12-07] MEDS ORDERED: LIDOCAINE HCL 2% (20ML MULTI-DOSE VIAL) ONE (01:10)
[2021-12-07] MEDS ORDERED: HYDROmorphone HCL CARPU-JECT 2 MG/1 ML DISP.SYRIN IVPUSH ONE (01:12)
[2021-12-07] MEDS ORDERED: ACETAMINOPHEN 325 MG TABLET (FP) ONE ×2 (04:37→15:44)
[2021-12-07] MEDS: ACETAMINOPHEN 325 MG TABLET (FP) PO PRN ×3 (04:42→21:34)
[2021-12-07] MEDS ORDERED: morphine SULFATE 4 MG/ML VIAL IVPUSH ONE (04:54)
[2021-12-07] MEDS ORDERED: morphine SULFATE 4 MG/ML VIAL ONE (05:02)
[2021-12-07] MEDS ORDERED: oxyCODONE HCL 5 MG TABLET ONE ×2 (08:05→14:50)
[2021-12-07] MEDS: oxyCODONE HCL 5 MG TABLET PO PRN ×3 (08:20→21:35)
[2021-12-07] MEDS: INSULIN SLIDING SCALE (NOVOLOG) 1 VIAL SQ SCH ×4 (08:21→21:31)
[2021-12-07 08:38] LABS: BASO % 0.6 % (0-2.0); EOS % 0.7 % (0-4.5); HEMATOCRIT 32.9 % (35.4-49); HEMOGLOBIN 11.4 GM/dL (11.7-16.9); LYMPH % 26.2 % (8-40); MCH 29.9 pg (25.7-33.7); MCHC 34.8 g/dl (32.0-35.9); MEAN CELL VOLUME 85.9 fl (80-96); MEAN PLT VOLUME 8.7 fl (7.5-11.1); MONO % 13.1 % (3.8-10.2); NEUT % 59.4 % (42.8-82.8); PLATELET COUNT 223 10^3/uL (134-434); RBC 3.83 M/mm3 (4.00-5.60); RDW 16.1 % (11.9-15.9); WHITE BLOOD COUNT 9.2 K/mm3 (4.0-10.0)
[2021-12-07 09:03] LABS: CALCIUM 8.3 mg/dL (8.5-10.1)
[2021-12-07 09:04] LABS: BLOOD UREA NITROGEN 18.9 mg/dL (7-18)
[2021-12-07 09:05] LABS: CREATININE 1.1 mg/dL (0.55-1.3)
[2021-12-07 09:06] LABS: PHOSPHOROUS 3.9 mg/dL (2.5-4.9); TOT PROT 6.1 g/dl (6.4-8.2)
[2021-12-07 09:07] LABS: BILIRUBIN,TOTAL 0.5 mg/dL (0.2-1)
[2021-12-07 09:26] LABS: PH,URINE 5.5 (5.0-8.0); URINE APPEARANCE CLEAR; URINE BILIRUBIN NEGATIVE (NEGATIVE); URINE COLOR YELLOW; URINE GLUCOSE (UA) NEGATIVE (NEGATIVE); URINE KETONE TRACE (NEGATIVE); URINE LEUK ESTERASE NEGATIVE (NEGATIVE); URINE NITRITE NEGATIVE (NEGATIVE); URINE PROTEIN NEGATIVE (NEGATIVE)
[2021-12-07] MEDS ORDERED: CARBIDOPA/LEVODOPA 25/100 TABLET (FP) ONE (10:15)
[2021-12-07] MEDS ORDERED: TAMSULOSIN HCL 0.4 MG CAP PO SCH (10:45)
[2021-12-07] MEDS ORDERED: PANTOPRAZOLE SODIUM 40 MG VIAL ONE (12:27)
[2021-12-07] MEDS: PANTOPRAZOLE SODIUM 40 MG VIAL IVPUSH SCH (12:30)
[2021-12-07] MEDS: DIVALPROEX NA *ER* EXTEND REL 500 MG TABLET.SA (FP) PO SCH (22:39)
[2021-12-07] MEDS: traZODone HCL 100 MG TABLET (FP) PO SCH (22:39)
[2021-12-08] MEDS: oxyCODONE HCL 5 MG TABLET PO PRN ×2 (06:21→21:01)
[2021-12-08] MEDS: INSULIN SLIDING SCALE (NOVOLOG) 1 VIAL SQ SCH ×4 (06:21→21:04)
[2021-12-08 08:48] LABS: CALCIUM 8.6 mg/dL (8.5-10.1)
[2021-12-08 08:49] LABS: ALBUMIN 2.9 g/dl (3.4-5.0); BLOOD UREA NITROGEN 8.6 mg/dL (7-18)
[2021-12-08 08:52] LABS: CREATININE 0.7 mg/dL (0.55-1.3)
[2021-12-08 08:53] LABS: BILIRUBIN,TOTAL 0.7 mg/dL (0.2-1)
[2021-12-08 08:54] LABS: TOT PROT 5.6 g/dl (6.4-8.2)
[2021-12-08] MEDS: PANTOPRAZOLE SODIUM 40 MG VIAL IVPUSH SCH (09:23)
[2021-12-08] MEDS: TAMSULOSIN HCL 0.4 MG CAP PO SCH (09:23)
[2021-12-08] MEDS: ACETAMINOPHEN 325 MG TABLET (FP) PO PRN (11:45)
[2021-12-08] MEDS ORDERED: traZODone HCL 50 MG TABLET (FP) ONE (20:51)
[2021-12-08] MEDS: traZODone HCL 100 MG TABLET (FP) PO SCH (21:01)
[2021-12-08] MEDS: DIVALPROEX NA *ER* EXTEND REL 500 MG TABLET.SA (FP) PO SCH (21:01)
[2021-12-09] MEDS: INSULIN SLIDING SCALE (NOVOLOG) 1 VIAL SQ SCH ×4 (06:10→21:15)
[2021-12-09] MEDS: oxyCODONE HCL 5 MG TABLET PO PRN ×2 (06:11→18:36)
[2021-12-09 07:54] LABS: BASO % 0.8 % (0-2.0); EOS % 2.6 % (0-4.5); HEMATOCRIT 34.8 % (35.4-49); HEMOGLOBIN 11.6 GM/dL (11.7-16.9); LYMPH % 27.1 % (8-40); MCH 28.6 pg (25.7-33.7); MCHC 33.4 g/dl (32.0-35.9); MEAN CELL VOLUME 85.6 fl (80-96); MEAN PLT VOLUME 8.9 fl (7.5-11.1); NEUT % 57.5 % (42.8-82.8); PLATELET COUNT 224 10^3/uL (134-434); RBC 4.06 M/mm3 (4.00-5.60); RDW 16.2 % (11.9-15.9); WHITE BLOOD COUNT 8.7 K/mm3 (4.0-10.0)
[2021-12-09 08:11] LABS: BLOOD UREA NITROGEN 7.8 mg/dL (7-18); CALCIUM 8.4 mg/dL (8.5-10.1)
[2021-12-09 08:14] LABS: CREATININE 0.7 mg/dL (0.55-1.3)
[2021-12-09] MEDS: TAMSULOSIN HCL 0.4 MG CAP PO SCH (09:07)
[2021-12-09] MEDS: ACETAMINOPHEN 325 MG TABLET (FP) PO PRN ×2 (09:09→15:19)
[2021-12-09] MEDS: PANTOPRAZOLE 20 MG TABLET PO SCH (09:12)
[2021-12-09] MEDS ORDERED: traZODone HCL 50 MG TABLET (FP) ONE (21:00)
[2021-12-09] MEDS: traZODone HCL 100 MG TABLET (FP) PO SCH (21:17)
[2021-12-09] MEDS: DIVALPROEX NA *ER* EXTEND REL 500 MG TABLET.SA (FP) PO SCH (21:18)
[2021-12-10] MEDS: oxyCODONE HCL 5 MG TABLET PO PRN (05:58)
[2021-12-10] MEDS: INSULIN SLIDING SCALE (NOVOLOG) 1 VIAL SQ SCH ×4 (06:00→21:37)
[2021-12-10 08:27] LABS: BASO % 1.7 % (0-2.0); EOS % 2.3 % (0-4.5); HEMATOCRIT 33.9 % (35.4-49); HEMOGLOBIN 11.4 GM/dL (11.7-16.9); MCH 28.8 pg (25.7-33.7); MCHC 33.6 g/dl (32.0-35.9); MEAN CELL VOLUME 85.7 fl (80-96); MEAN PLT VOLUME 8.9 fl (7.5-11.1); MONO % 10.6 % (3.8-10.2); NEUT % 63.4 % (42.8-82.8); PLATELET COUNT 229 10^3/uL (134-434); RBC 3.95 M/mm3 (4.00-5.60); WHITE BLOOD COUNT 8.5 K/mm3 (4.0-10.0)
[2021-12-10 08:51] LABS: CALCIUM 8.7 mg/dL (8.5-10.1)
[2021-12-10 08:52] LABS: ALBUMIN 2.9 g/dl (3.4-5.0); BLOOD UREA NITROGEN 11.3 mg/dL (7-18)
[2021-12-10 08:55] LABS: CREATININE 0.8 mg/dL (0.55-1.3)
[2021-12-10 08:56] LABS: TOT PROT 5.9 g/dl (6.4-8.2)
[2021-12-10 08:57] LABS: BILIRUBIN,TOTAL 0.6 mg/dL (0.2-1)
[2021-12-10] MEDS: PANTOPRAZOLE 20 MG TABLET PO SCH (09:13)
[2021-12-10] MEDS: TAMSULOSIN HCL 0.4 MG CAP PO SCH (09:13)
[2021-12-10] MEDS ORDERED: INSULIN (LEVEMIR) 100 UNITS/ML UNITS SQ SCH (10:00)
[2021-12-10] MEDS ORDERED: ROPIVACAINE HCL 0.5% 30ML VIAL ONE (15:15)
[2021-12-10] MEDS ORDERED: MIDAZOLAM HCL 2 MG/2 ML SINGLE DOSE VIAL ONE ×2 (15:16)
[2021-12-10] MEDS ORDERED: PROPOFOL 20 ML ONE (16:07)
[2021-12-10] MEDS ORDERED: SUCCINYLCHOLINE CHLORIDE 200 MG/10 ML SYRINGE ONE (16:07)
[2021-12-10] MEDS ORDERED: oxyCODONE HCL 5 MG TABLET PO PRN ×2 (16:50→18:30)
[2021-12-10] MEDS ORDERED: ONDANSETRON 4 MG/2 ML VIAL IVPUSH PRN ×2 (16:50→18:30)
[2021-12-10] MEDS ORDERED: LACTATED RINGERS SOLUTION 1,000 ML IV SCH ×2 (17:00→18:30)
[2021-12-10] MEDS ORDERED: ACETAMINOPHEN 325 MG TABLET (FP) PO PRN (18:30)
[2021-12-10] MEDS: ASPIRIN 81 MG CHEWABLE TABLETS PO SCH (21:29)
[2021-12-10] MEDS: INSULIN (LEVEMIR) 100 UNITS/ML UNITS SQ SCH (21:36)
[2021-12-10] MEDS ORDERED: DIVALPROEX NA *ER* EXTEND REL 500 MG TABLET.SA (FP) PO SCH (22:00)
[2021-12-10] MEDS ORDERED: ATORVASTATIN CA 80 MG TABLET (FP) PO SCH ×2 (22:00)
[2021-12-10] MEDS ORDERED: traZODone HCL 100 MG TABLET (FP) PO SCH (22:00)
[2021-12-11] MEDS ORDERED: ceFAZolin SODIUM 1 GM VIAL ONE ×3 (01:05→17:32)
[2021-12-11] MEDS ORDERED: DEXTROSE 5%-WATER - 50 ML IVPB ONE ×3 (01:05→17:32)
[2021-12-11] MEDS: CEFAZOLIN 1 GM in DEXTROSE 5%-WATER - 50 ML IVPB SCH ×2 (01:16→10:34)
[2021-12-11] MEDS: INSULIN SLIDING SCALE (NOVOLOG) 1 VIAL SQ SCH ×3 (06:08→23:30)
[2021-12-11] MEDS: INSULIN (LEVEMIR) 100 UNITS/ML UNITS SQ SCH ×2 (06:09→23:01)
[2021-12-11] MEDS ORDERED: TAMSULOSIN HCL 0.4 MG CAP PO SCH (08:30)
[2021-12-11 08:45] LABS: BASO % 0.4 % (0-2.0); EOS % 0.6 % (0-4.5); HEMOGLOBIN 10.5 GM/dL (11.7-16.9); MEAN CELL VOLUME 85.5 fl (80-96); MEAN PLT VOLUME 8.8 fl (7.5-11.1); MONO % 9.7 % (3.8-10.2); NEUT % 67.3 % (42.8-82.8); PLATELET COUNT 242 10^3/uL (134-434); RBC 3.63 M/mm3 (4.00-5.60); RDW 15.9 % (11.9-15.9); WHITE BLOOD COUNT 8.8 K/mm3 (4.0-10.0)
[2021-12-11 09:10] LABS: BLOOD UREA NITROGEN 20.6 mg/dL (7-18); CALCIUM 8.5 mg/dL (8.5-10.1)
[2021-12-11 09:14] LABS: CREATININE 0.9 mg/dL (0.55-1.3)
[2021-12-11] MEDS ORDERED: CHOLECALCIFEROL (VIT D3) 1,000 UNIT (25 MCG) TABLET PO SCH (10:00)
[2021-12-11] MEDS ORDERED: PANTOPRAZOLE 20 MG TABLET PO SCH (10:00)
[2021-12-11] MEDS: ASPIRIN 81 MG CHEWABLE TABLETS PO SCH ×2 (10:34→22:02)
[2021-12-11] MEDS ORDERED: oxyCODONE HCL 5 MG TABLET PO PRN (11:55)
[2021-12-11] MEDS ORDERED: ACETAMINOPHEN/CAFFEINE/BUTALBITAL 1 TAB PO PRN (12:19)
[2021-12-11] MEDS: oxyCODONE HCL 5 MG TABLET PO PRN ×3 (13:30→18:45)
[2021-12-11] MEDS: ACETAMINOPHEN 325 MG TABLET (FP) PO PRN ×2 (13:31→22:00)
[2021-12-11] MEDS: LACTATED RINGERS SOLUTION 1,000 ML IV SCH (14:24)
[2021-12-11] MEDS ORDERED: DOCUSATE SODIUM 100 MG CAPSULE (FP) PO PRN (15:21)
[2021-12-11] MEDS ORDERED: INSULIN (NOVOLOG) ASPART 100 UNITS/ML 10ML VIAL ONE (17:00)
[2021-12-11] MEDS: POLYETHYLENE GLYCOL (HEALTHYLAX) 3350 17 GM PACKET PO SCH ×2 (17:53→22:03)
[2021-12-11] MEDS: SENNOSIDES 8.6MG TABLET (FP) PO SCH ×2 (17:53→22:02)
[2021-12-11] MEDS ORDERED: CEFAZOLIN 1 GM in DEXTROSE 5%-WATER - 50 ML IVPB SCH (18:00)
[2021-12-11] MEDS: CELECOXIB 200 MG CAPSULE PO SCH (18:45)
[2021-12-11] MEDS ORDERED: traZODone HCL 50 MG TABLET (FP) ONE (21:58)
[2021-12-11] MEDS ORDERED: traZODone HCL 100 MG TABLET (FP) PO SCH (22:00)
[2021-12-11] MEDS: DIVALPROEX NA *ER* EXTEND REL 500 MG TABLET.SA (FP) PO SCH (22:01)
[2021-12-11] MEDS: ATORVASTATIN CA 80 MG TABLET (FP) PO SCH (22:04)
[2021-12-12] MEDS: LACTATED RINGERS SOLUTION 1,000 ML IV SCH ×3 (04:54→22:45)
[2021-12-12] MEDS: INSULIN (LEVEMIR) 100 UNITS/ML UNITS SQ SCH ×2 (06:00→21:38)
[2021-12-12] MEDS: INSULIN SLIDING SCALE (NOVOLOG) 1 VIAL SQ SCH ×5 (06:15→21:40)
[2021-12-12 08:10] LABS: BASO % 0.7 % (0-2.0); EOS % 1.3 % (0-4.5); HEMATOCRIT 32.8 % (35.4-49); HEMOGLOBIN 11.4 GM/dL (11.7-16.9); LYMPH % 24.3 % (8-40); MCH 29.6 pg (25.7-33.7); MCHC 34.7 g/dl (32.0-35.9); MEAN CELL VOLUME 85.3 fl (80-96); MEAN PLT VOLUME 8.5 fl (7.5-11.1); MONO % 13.1 % (3.8-10.2); NEUT % 60.6 % (42.8-82.8); PLATELET COUNT 245 10^3/uL (134-434); RBC 3.84 M/mm3 (4.00-5.60); RDW 16.3 % (11.9-15.9); WHITE BLOOD COUNT 8.4 K/mm3 (4.0-10.0)
[2021-12-12 08:20] LABS: CALCIUM 8.7 mg/dL (8.5-10.1)
[2021-12-12 08:21] LABS: ALBUMIN 2.9 g/dl (3.4-5.0); BLOOD UREA NITROGEN 9.4 mg/dL (7-18)
[2021-12-12] MEDS: oxyCODONE HCL 5 MG TABLET PO PRN ×5 (08:22→23:22)
[2021-12-12 08:24] LABS: CREATININE 0.7 mg/dL (0.55-1.3)
[2021-12-12 08:26] LABS: BILIRUBIN,TOTAL 0.8 mg/dL (0.2-1)
[2021-12-12] MEDS: PANTOPRAZOLE 20 MG TABLET PO SCH (09:57)
[2021-12-12] MEDS: ASPIRIN 81 MG CHEWABLE TABLETS PO SCH ×2 (09:57→21:29)
[2021-12-12] MEDS ORDERED: CHOLECALCIFEROL (VIT D3) 1,000 UNIT (25 MCG) TABLET PO SCH (10:00)
[2021-12-12] MEDS: SENNOSIDES 8.6MG TABLET (FP) PO SCH ×2 (10:01→21:29)
[2021-12-12] MEDS: POLYETHYLENE GLYCOL (HEALTHYLAX) 3350 17 GM PACKET PO SCH ×2 (10:01→21:32)
[2021-12-12] MEDS: CELECOXIB 200 MG CAPSULE PO SCH (10:01)
[2021-12-12] MEDS: TAMSULOSIN HCL 0.4 MG CAP PO SCH (11:15)
[2021-12-12] MEDS: LISINOPRIL 20 MG TABLET PO SCH ×2 (13:21→21:30)
[2021-12-12] MEDS: ARTIFICIAL TEARS (POLYVINYL ALCOHOL) OPTH DROPS OU PRN (13:23)
[2021-12-12] MEDS: DIVALPROEX NA *ER* EXTEND REL 500 MG TABLET.SA (FP) PO SCH (21:29)
[2021-12-12] MEDS: traZODone HCL 50 MG TABLET (FP) PO SCH (21:29)
[2021-12-12] MEDS: ATORVASTATIN CA 80 MG TABLET (FP) PO SCH (21:30)
[2021-12-12] MEDS: ACETAMINOPHEN 325 MG TABLET (FP) PO PRN (22:25)
[2021-12-13] MEDS: oxyCODONE HCL 5 MG TABLET PO PRN ×5 (05:47→21:32)
[2021-12-13] MEDS: ACETAMINOPHEN 325 MG TABLET (FP) PO PRN ×2 (06:30→22:36)
[2021-12-13] MEDS: INSULIN SLIDING SCALE (NOVOLOG) 1 VIAL SQ SCH ×4 (06:31→21:56)
[2021-12-13] MEDS: INSULIN (LEVEMIR) 100 UNITS/ML UNITS SQ SCH ×2 (06:31→21:54)
[2021-12-13] MEDS: CHOLECALCIFEROL (VIT D3) 1,000 UNIT (25 MCG) TABLET PO SCH (09:43)
[2021-12-13] MEDS: SENNOSIDES 8.6MG TABLET (FP) PO SCH ×2 (09:44→21:34)
[2021-12-13] MEDS: TAMSULOSIN HCL 0.4 MG CAP PO SCH (09:44)
[2021-12-13] MEDS: LISINOPRIL 20 MG TABLET PO SCH ×2 (09:44→21:34)
[2021-12-13] MEDS: PANTOPRAZOLE 20 MG TABLET PO SCH (09:44)
[2021-12-13] MEDS: ASPIRIN 81 MG CHEWABLE TABLETS PO SCH ×2 (09:44→21:34)
[2021-12-13] MEDS: CELECOXIB 200 MG CAPSULE PO SCH (09:45)
[2021-12-13] MEDS: POLYETHYLENE GLYCOL (HEALTHYLAX) 3350 17 GM PACKET PO SCH ×2 (09:45→21:35)
[2021-12-13] MEDS: ENOXAPARIN NA (PORCINE) 40 MG/0.4 ML DISP.SYRIN SQ SCH (16:16)
[2021-12-13] MEDS ORDERED: INSULIN (NOVOLOG) ASPART 100 UNITS/ML 10ML VIAL ONE (20:39)
[2021-12-13] MEDS: traZODone HCL 50 MG TABLET (FP) PO SCH (21:33)
[2021-12-13] MEDS: ATORVASTATIN CA 80 MG TABLET (FP) PO SCH (21:33)
[2021-12-13] MEDS: DIVALPROEX NA *ER* EXTEND REL 500 MG TABLET.SA (FP) PO SCH (21:35)
[2021-12-13] MEDS: ARTIFICIAL TEARS (POLYVINYL ALCOHOL) OPTH DROPS OU PRN (21:56)
[2021-12-14] MEDS: oxyCODONE HCL 5 MG TABLET PO PRN (06:47)
[2021-12-14] MEDS: INSULIN (LEVEMIR) 100 UNITS/ML UNITS SQ SCH (06:50)
[2021-12-14] MEDS: INSULIN SLIDING SCALE (NOVOLOG) 1 VIAL SQ SCH ×3 (06:51→16:29)
[2021-12-14] MEDS: CHOLECALCIFEROL (VIT D3) 1,000 UNIT (25 MCG) TABLET PO SCH (09:38)
[2021-12-14] MEDS: ASPIRIN 81 MG CHEWABLE TABLETS PO SCH (09:39)
[2021-12-14] MEDS: SENNOSIDES 8.6MG TABLET (FP) PO SCH (09:39)
[2021-12-14] MEDS: PANTOPRAZOLE 20 MG TABLET PO SCH (09:39)
[2021-12-14] MEDS: ENOXAPARIN NA (PORCINE) 40 MG/0.4 ML DISP.SYRIN SQ SCH (09:40)
[2021-12-14] MEDS: TAMSULOSIN HCL 0.4 MG CAP PO SCH (09:40)
[2021-12-14] MEDS: LISINOPRIL 20 MG TABLET PO SCH (09:40)
[2021-12-14] MEDS: CELECOXIB 200 MG CAPSULE PO SCH (09:41)
[2021-12-14] MEDS: POLYETHYLENE GLYCOL (HEALTHYLAX) 3350 17 GM PACKET PO SCH (09:41)
[2021-12-14] MEDS: ACETAMINOPHEN 325 MG TABLET (FP) PO PRN (09:45)
[2021-12-14 11:04] LABS: CALCIUM 8.7 mg/dL (8.5-10.1)
[2021-12-14 11:05] LABS: ALBUMIN 2.7 g/dl (3.4-5.0); BLOOD UREA NITROGEN 12.8 mg/dL (7-18)
[2021-12-14 11:08] LABS: CREATININE 0.9 mg/dL (0.55-1.3)
[2021-12-14 11:09] LABS: TOT PROT 5.8 g/dl (6.4-8.2)
[2021-12-14 11:10] LABS: BILIRUBIN,TOTAL 0.8 mg/dL (0.2-1)
[2021-12-14] MEDS ORDERED: FLUTICASONE PROP 0.05% 16 GM NASAL SPRAY NS SCH (11:45)
[2021-12-14 12:00] VITALS: BMI 31.9
[2021-12-14 13:46] VITALS: BP 144/67; PULSE 63; TEMP 98.5
== END 2021-12-14 05:45 | DRG 512 ==
LOC: JER 19:27 → JERBED 22:21 → J4W 12-07 19:10 → J7W 12-11 11:52
PROVIDERS: ADMIT Internal Medicine
PROC: 0PSH04Z Reposition Right Radius with Internal Fixation Device, Open Approach (ICD-10-PCS; principal; 2021-12-10 15:00)
DX: S52.501A Unspecified fracture of the lower end of right radius, initial encounter for closed fracture (principal); J44.9 Chronic obstructive pulmonary disease, unspecified; F31.9 Bipolar disorder, unspecified; E11.51 Type 2 diabetes mellitus with diabetic peripheral angiopathy without gangrene; G20 Parkinson's disease; I25.10 Atherosclerotic heart disease of native coronary artery without angina pectoris; E78.5 Hyperlipidemia, unspecified; D72.829 Elevated white blood cell count, unspecified; I45.10 Unspecified right bundle-branch block; W19.XXXA Unspecified fall, initial encounter; Y93.9 Activity, unspecified; Y92.89 Other specified places as the place of occurrence of the external cause; Y99.9 Unspecified external cause status; I11.9 Hypertensive heart disease without heart failure; E66.9 Obesity, unspecified; Z68.32 Body mass index [BMI] 32.0-32.9, adult
CPT/HCPCS: 36415; 70450-TC; 70486-TC; 71260-TC; 72125-TC; 72170-TC-FY; 73110-TC-RT-FY; 73130-TC-RT-FY; 74177-TC; 74220-TC-FY; 76000-TC-FY; 80048; 80053; 80061; 81003; 82550; 82553; 82607; 82746; 82962; 83735; 83874; 84100; 84439; 84443; 84484; 85025; 85610; 85730; 87086; 90715; 93005; 93010; 93306-TC; 93880-TC; 94760; 97116-GP; 97162-GP; 99285-25; C9803; Q9967; U0003; U0005

== ENCOUNTER 2022-01-01 11:52 | Inpatient (IN) | payer OTHER ==
[2022-01-01 14:38] LABS: HEMATOCRIT 26.6 % (35.4-49); HEMOGLOBIN 8.6 GM/dL (11.7-16.9); MCH 28.4 pg (25.7-33.7); MCHC 32.5 g/dl (32.0-35.9); MEAN CELL VOLUME 87.5 fl (80-96); MEAN PLT VOLUME 9.7 fl (7.5-11.1); PLATELET COUNT 358 10^3/uL (134-434); RBC 3.04 M/mm3 (4.00-5.60); RDW 15.8 % (11.9-15.9); WHITE BLOOD COUNT 15.2 K/mm3 (4.0-10.0)
[2022-01-01 14:50] LABS: ACTIVATED PTT 35.5 SECONDS (25.2-36.5); INR 1.07 (0.83-1.09); PROTHROMBIN TIME (PATIENT) 12.3 SEC (9.7-13.0)
[2022-01-01 15:07] LABS: CHLORIDE 102 mmol/L (98-107); SODIUM 135 mmol/L (136-145)
[2022-01-01 15:09] LABS: ALBUMIN 2.9 g/dl (3.4-5.0); ANION GAP 10 MMOL/L (8-16); BLOOD UREA NITROGEN 23.8 mg/dL (7-18); CALCIUM 8.9 mg/dL (8.5-10.1); CO2 23 mmol/L (21-32)
[2022-01-01 15:10] LABS: GLUCOSE,RANDOM 264 mg/dL (74-106)
[2022-01-01 15:13] LABS: SGOT/AST 17 U/L (15-37)
[2022-01-01 15:14] LABS: BILIRUBIN,TOTAL 1.1 mg/dL (0.2-1); TOT PROT 5.8 g/dl (6.4-8.2)
[2022-01-01 15:15] LABS: ALK PHOS 62 U/L (45-117)
[2022-01-01 15:23] LABS: SGPT/ALT < 6 U/L (13-61)
[2022-01-01 15:25] LABS: ANISOCYTOSIS 2+; MACROCYTOSIS 0; OVALOCYTE 2+; TEAR DROP CELLS 1+
[2022-01-01] MEDS ORDERED: SODIUM ZIRCONIUM CYCLOSILICATE (LOKELMA) 5 GM PACKET ONE (17:25)
[2022-01-01 19:41] LABS: URINE APPEARANCE CLEAR; URINE BILIRUBIN NEGATIVE (NEGATIVE); URINE COLOR DK YELLOW; URINE GLUCOSE (UA) NEGATIVE (NEGATIVE); URINE KETONE 1+ (NEGATIVE); URINE LEUK ESTERASE NEGATIVE (NEGATIVE); URINE NITRITE NEGATIVE (NEGATIVE); URINE PROTEIN TRACE (NEGATIVE)
[2022-01-02] MEDS: oxyCODONE HCL 5 MG TABLET PO PRN ×3 (06:16→18:34)
[2022-01-02] MEDS: rOPINIRole HCL 0.25 MG TABLET PO SCH ×3 (06:18→21:27)
[2022-01-02] MEDS: INSULIN SLIDING SCALE (NOVOLOG) 1 VIAL SQ SCH ×4 (06:20→21:27)
[2022-01-02] MEDS: TAMSULOSIN HCL 0.4 MG CAP PO SCH (08:42)
[2022-01-02 09:15] LABS: BASO % 0.7 % (0-2.0); EOS % 0.2 % (0-4.5); HEMATOCRIT 22.6 % (35.4-49); HEMOGLOBIN 7.7 GM/dL (11.7-16.9); LYMPH % 18.1 % (8-40); MCH 29.4 pg (25.7-33.7); MCHC 34.1 g/dl (32.0-35.9); MEAN CELL VOLUME 86.1 fl (80-96); MEAN PLT VOLUME 8.6 fl (7.5-11.1); MONO % 12.1 % (3.8-10.2); NEUT % 68.9 % (42.8-82.8); PLATELET COUNT 321 10^3/uL (134-434); RBC 2.62 M/mm3 (4.00-5.60); RDW 15.8 % (11.9-15.9); WHITE BLOOD COUNT 12.3 K/mm3 (4.0-10.0)
[2022-01-02 09:40] LABS: ALBUMIN 2.6 g/dl (3.4-5.0); BLOOD UREA NITROGEN 30.8 mg/dL (7-18); CALCIUM 8.6 mg/dL (8.5-10.1)
[2022-01-02 09:43] LABS: CREATININE 1.2 mg/dL (0.55-1.3)
[2022-01-02 09:45] LABS: BILIRUBIN,TOTAL 1.1 mg/dL (0.2-1); TOT PROT 5.5 g/dl (6.4-8.2)
[2022-01-02] MEDS: PREGABALIN 75 MG CAPSULE PO SCH ×2 (10:56→21:28)
[2022-01-02] MEDS: CARBIDOPA/LEVODOPA 25/100 TABLET (FP) PO SCH ×4 (10:57→21:28)
[2022-01-02] MEDS: DOCUSATE SODIUM 100 MG CAPSULE (FP) PO SCH (10:57)
[2022-01-02] MEDS: QUINAPRIL HCL 20 MG TABLET PO SCH ×2 (10:58→21:26)
[2022-01-02 11:28] LABS: ANISOCYTOSIS 2+; MACROCYTOSIS 0
[2022-01-02] MEDS ORDERED: SODIUM ZIRCONIUM CYCLOSILICATE (LOKELMA) 5 GM PACKET PO ONE (15:17)
[2022-01-02 15:42] VITALS: BMI 28.7
[2022-01-02 16:49] LABS: HEMATOCRIT 21.2 % (35.4-49); HEMOGLOBIN 7.1 GM/dL (11.7-16.9); MCH 28.9 pg (25.7-33.7); MCHC 33.5 g/dl (32.0-35.9); MEAN CELL VOLUME 86.5 fl (80-96); MEAN PLT VOLUME 8.5 fl (7.5-11.1); PLATELET COUNT 305 10^3/uL (134-434); RBC 2.45 M/mm3 (4.00-5.60); RDW 16.2 % (11.9-15.9); WHITE BLOOD COUNT 9.9 K/mm3 (4.0-10.0)
[2022-01-02 18:07] LABS: SARS-CoV-2 NAA Not Detected (Not Detected)
[2022-01-02] MEDS: DIVALPROEX SODIUM 500 MG TABLET E.C. PO SCH (21:26)
[2022-01-02] MEDS: ATORVASTATIN CA 40 MG TABLET (FP) PO SCH (21:28)
[2022-01-02] MEDS ORDERED: traZODone HCL 100 MG TABLET (FP) PO SCH (22:00)
[2022-01-03] MEDS: rOPINIRole HCL 0.25 MG TABLET PO SCH ×2 (06:08→13:34)
[2022-01-03] MEDS: oxyCODONE HCL 5 MG TABLET PO PRN ×3 (07:01→15:24)
[2022-01-03] MEDS: INSULIN SLIDING SCALE (NOVOLOG) 1 VIAL SQ SCH ×4 (07:03→22:38)
[2022-01-03] MEDS: TAMSULOSIN HCL 0.4 MG CAP PO SCH (08:07)
[2022-01-03] MEDS: DOCUSATE SODIUM 100 MG CAPSULE (FP) PO SCH (09:46)
[2022-01-03] MEDS: CARBIDOPA/LEVODOPA 25/100 TABLET (FP) PO SCH ×3 (09:46→17:06)
[2022-01-03] MEDS: PREGABALIN 75 MG CAPSULE PO SCH ×2 (09:47→22:30)
[2022-01-03] MEDS: QUINAPRIL HCL 20 MG TABLET PO SCH ×2 (09:47→22:29)
[2022-01-03 09:58] LABS: HEMATOCRIT 21.5 % (35.4-49); HEMOGLOBIN 7.1 GM/dL (11.7-16.9); MCH 28.9 pg (25.7-33.7); MCHC 33.1 g/dl (32.0-35.9); MEAN CELL VOLUME 87.2 fl (80-96); MEAN PLT VOLUME 8.7 fl (7.5-11.1); PLATELET COUNT 308 10^3/uL (134-434); RBC 2.46 M/mm3 (4.00-5.60); RDW 16.3 % (11.9-15.9); WHITE BLOOD COUNT 10.1 K/mm3 (4.0-10.0)
[2022-01-03 10:06] LABS: ALBUMIN 2.2 g/dl (3.4-5.0); CALCIUM 8.1 mg/dL (8.5-10.1)
[2022-01-03 10:11] LABS: BILIRUBIN,TOTAL 1.3 mg/dL (0.2-1)
[2022-01-03] MEDS ORDERED: PIPERACILLIN/TAZOB 4.5 GM 4.5 GM in DEXTROSE 5%-WATER 100 ML IVPB SCH ×2 (11:15→11:45)
[2022-01-03 11:54] LABS: URINE APPEARANCE CLEAR; URINE BILIRUBIN 1+ (NEGATIVE); URINE COLOR DK YELLOW; URINE GLUCOSE (UA) NEGATIVE (NEGATIVE); URINE KETONE 1+ (NEGATIVE); URINE LEUK ESTERASE NEGATIVE (NEGATIVE); URINE NITRITE NEGATIVE (NEGATIVE); URINE PROTEIN NEGATIVE (NEGATIVE); URINE UROBILINOGEN 4.0 E.U/dl mg/dL (0.2-1.0)
[2022-01-03 12:01] LABS: ANISOCYTOSIS 1+; MACROCYTOSIS 0
[2022-01-03] MEDS: traZODone HCL 100 MG TABLET (FP) PO SCH (22:29)
[2022-01-03] MEDS: DIVALPROEX SODIUM 500 MG TABLET E.C. PO SCH (22:29)
[2022-01-03] MEDS: ATORVASTATIN CA 40 MG TABLET (FP) PO SCH (22:30)
[2022-01-04] MEDS: oxyCODONE HCL 5 MG TABLET PO PRN ×4 (03:52→18:22)
[2022-01-04] MEDS: INSULIN SLIDING SCALE (NOVOLOG) 1 VIAL SQ SCH ×4 (06:10→21:19)
[2022-01-04] MEDS: rOPINIRole HCL 0.25 MG TABLET PO SCH ×3 (06:11→16:07)
[2022-01-04] MEDS: TAMSULOSIN HCL 0.4 MG CAP PO SCH (07:55)
[2022-01-04] MEDS: PREGABALIN 75 MG CAPSULE PO SCH ×2 (09:26→21:23)
[2022-01-04] MEDS: DOCUSATE SODIUM 100 MG CAPSULE (FP) PO SCH (09:26)
[2022-01-04] MEDS: QUINAPRIL HCL 20 MG TABLET PO SCH ×2 (09:27→21:21)
[2022-01-04 09:58] LABS: BLOOD UREA NITROGEN 16.6 mg/dL (7-18)
[2022-01-04 10:01] LABS: CREATININE 0.9 mg/dL (0.55-1.3)
[2022-01-04] MEDS ORDERED: oxyCODONE HCL 5 MG TABLET PO ONE (14:25)
[2022-01-04] MEDS: LIDOCAINE 5% TOPICAL PATCH TP SCH (21:20)
[2022-01-04] MEDS: DIVALPROEX SODIUM 500 MG TABLET E.C. PO SCH (21:22)
[2022-01-04] MEDS: traZODone HCL 100 MG TABLET (FP) PO SCH (21:22)
[2022-01-04] MEDS: ATORVASTATIN CA 40 MG TABLET (FP) PO SCH (21:23)
[2022-01-05] MEDS: rOPINIRole HCL 0.25 MG TABLET PO SCH ×3 (06:20→16:22)
[2022-01-05] MEDS: INSULIN SLIDING SCALE (NOVOLOG) 1 VIAL SQ SCH ×4 (06:22→21:10)
[2022-01-05 08:52] LABS: HEMATOCRIT 23.3 % (35.4-49); HEMOGLOBIN 7.9 GM/dL (11.7-16.9); MCH 29.2 pg (25.7-33.7); MCHC 33.9 g/dl (32.0-35.9); MEAN CELL VOLUME 86.3 fl (80-96); MEAN PLT VOLUME 8.4 fl (7.5-11.1); PLATELET COUNT 301 10^3/uL (134-434); RDW 16.5 % (11.9-15.9); WHITE BLOOD COUNT 9.3 K/mm3 (4.0-10.0)
[2022-01-05 09:16] LABS: CHLORIDE 101 mmol/L (98-107); SODIUM 135 mmol/L (136-145)
[2022-01-05 09:21] LABS: ANION GAP 5 MMOL/L (8-16); CALCIUM 8.1 mg/dL (8.5-10.1); CO2 28 mmol/L (21-32); GLUCOSE,RANDOM 273 mg/dL (74-106)
[2022-01-05 09:22] LABS: ALBUMIN 2.1 g/dl (3.4-5.0)
[2022-01-05 09:24] LABS: CREATININE 0.8 mg/dL (0.55-1.3); SGOT/AST 9 U/L (15-37)
[2022-01-05 09:26] LABS: BILIRUBIN,TOTAL 1.2 mg/dL (0.2-1); TOT PROT 4.9 g/dl (6.4-8.2)
[2022-01-05 09:27] LABS: ALK PHOS 53 U/L (45-117)
[2022-01-05 09:28] LABS: MAGNESIUM 2.1 mg/dL (1.8-2.4)
[2022-01-05 09:54] LABS: SGPT/ALT < 6 U/L (13-61)
[2022-01-05] MEDS: PREGABALIN 75 MG CAPSULE PO SCH ×2 (09:55→21:09)
[2022-01-05] MEDS: TAMSULOSIN HCL 0.4 MG CAP PO SCH (09:55)
[2022-01-05] MEDS: QUINAPRIL HCL 20 MG TABLET PO SCH ×2 (09:56→21:08)
[2022-01-05] MEDS: DOCUSATE SODIUM 100 MG CAPSULE (FP) PO SCH (09:56)
[2022-01-05] MEDS: LIDOCAINE PATCH REMOVAL MC SCH (09:57)
[2022-01-05] MEDS: oxyCODONE HCL 5 MG TABLET PO PRN ×2 (10:53→18:09)
[2022-01-05] MEDS: ATORVASTATIN CA 40 MG TABLET (FP) PO SCH (21:08)
[2022-01-05] MEDS: traZODone HCL 100 MG TABLET (FP) PO SCH (21:09)
[2022-01-05] MEDS: LIDOCAINE 5% TOPICAL PATCH TP SCH (21:09)
[2022-01-05] MEDS: ACETAMINOPHEN 325 MG TABLET (FP) PO PRN (21:10)
[2022-01-05] MEDS: DIVALPROEX SODIUM 500 MG TABLET E.C. PO SCH (21:10)
[2022-01-06] MEDS: INSULIN SLIDING SCALE (NOVOLOG) 1 VIAL SQ SCH ×4 (06:12→21:21)
[2022-01-06] MEDS: rOPINIRole HCL 0.25 MG TABLET PO SCH ×3 (06:13→16:16)
[2022-01-06] MEDS: oxyCODONE HCL 5 MG TABLET PO PRN ×3 (06:13→21:08)
[2022-01-06 08:34] LABS: HEMATOCRIT 23.6 % (35.4-49); HEMOGLOBIN 7.9 GM/dL (11.7-16.9); MCHC 33.4 g/dl (32.0-35.9); MEAN CELL VOLUME 86.9 fl (80-96); MEAN PLT VOLUME 8.1 fl (7.5-11.1); PLATELET COUNT 299 10^3/uL (134-434); RBC 2.72 M/mm3 (4.00-5.60); RDW 16.1 % (11.9-15.9); WHITE BLOOD COUNT 8.3 K/mm3 (4.0-10.0)
[2022-01-06] MEDS: LIDOCAINE PATCH REMOVAL MC SCH (09:05)
[2022-01-06] MEDS: QUINAPRIL HCL 20 MG TABLET PO SCH ×2 (09:07→21:07)
[2022-01-06] MEDS: PREGABALIN 75 MG CAPSULE PO SCH ×2 (09:07→21:07)
[2022-01-06] MEDS: TAMSULOSIN HCL 0.4 MG CAP PO SCH (09:07)
[2022-01-06 09:08] LABS: IRON SERUM 41 ug/dL (50-175)
[2022-01-06] MEDS: DOCUSATE SODIUM 100 MG CAPSULE (FP) PO SCH (09:08)
[2022-01-06 09:09] LABS: TOTAL IRON BINDING CAPACITY 229 ug/dL (250-450)
[2022-01-06 09:12] LABS: BLOOD UREA NITROGEN 10.4 mg/dL (7-18); CALCIUM 8.1 mg/dL (8.5-10.1)
[2022-01-06 09:14] LABS: CREATININE 0.8 mg/dL (0.55-1.3)
[2022-01-06] MEDS: ACETAMINOPHEN 325 MG TABLET (FP) PO PRN (11:44)
[2022-01-06] MEDS ORDERED: IRON SUCROSE INJECTION 300 MG in SODIUM CHLORIDE 235 ML IVPB ONE (12:00)
[2022-01-06] MEDS ORDERED: BISACODYL 10 MG SUPP.RECT PR ONE (15:00)
[2022-01-06] MEDS: LIDOCAINE 5% TOPICAL PATCH TP SCH (20:01)
[2022-01-06] MEDS: POLYETHYLENE GLYCOL (HEALTHYLAX) 3350 17 GM PACKET PO SCH (21:06)
[2022-01-06] MEDS: traZODone HCL 100 MG TABLET (FP) PO SCH (21:07)
[2022-01-06] MEDS: ATORVASTATIN CA 40 MG TABLET (FP) PO SCH (21:07)
[2022-01-06] MEDS: DIVALPROEX SODIUM 500 MG TABLET E.C. PO SCH (21:07)
[2022-01-07] MEDS: oxyCODONE HCL 5 MG TABLET PO PRN ×2 (05:22→09:38)
[2022-01-07] MEDS: rOPINIRole HCL 0.25 MG TABLET PO SCH (06:01)
[2022-01-07] MEDS: INSULIN SLIDING SCALE (NOVOLOG) 1 VIAL SQ SCH (06:13)
[2022-01-07 07:11] VITALS: BP 127/69; PULSE 86; TEMP 98.1
[2022-01-07] MEDS: LIDOCAINE PATCH REMOVAL MC SCH (07:50)
[2022-01-07 08:37] LABS: HEMATOCRIT 23.3 % (35.4-49); HEMOGLOBIN 7.8 GM/dL (11.7-16.9); MCH 29.1 pg (25.7-33.7); MCHC 33.4 g/dl (32.0-35.9); MEAN CELL VOLUME 87.2 fl (80-96); MEAN PLT VOLUME 8.3 fl (7.5-11.1); PLATELET COUNT 301 10^3/uL (134-434); RBC 2.67 M/mm3 (4.00-5.60); RDW 17.1 % (11.9-15.9); WHITE BLOOD COUNT 8.7 K/mm3 (4.0-10.0)
[2022-01-07] MEDS: TAMSULOSIN HCL 0.4 MG CAP PO SCH (08:46)
[2022-01-07 09:01] LABS: CALCIUM 8.1 mg/dL (8.5-10.1)
[2022-01-07 09:02] LABS: BLOOD UREA NITROGEN 7.6 mg/dL (7-18)
[2022-01-07 09:05] LABS: CREATININE 0.7 mg/dL (0.55-1.3)
[2022-01-07] MEDS: POLYETHYLENE GLYCOL (HEALTHYLAX) 3350 17 GM PACKET PO SCH (09:36)
[2022-01-07] MEDS: DOCUSATE SODIUM 100 MG CAPSULE (FP) PO SCH (09:36)
[2022-01-07] MEDS: QUINAPRIL HCL 20 MG TABLET PO SCH (09:39)
[2022-01-07] MEDS: PREGABALIN 75 MG CAPSULE PO SCH (09:39)
[2022-01-07 14:08] LABS: SARS-CoV-2 NAA Not Detected (Not Detected)
== END 2022-01-07 12:10 | DRG 605 ==
LOC: JER 11:52 → JERBED 18:35 → J5S 01-02 04:05
PROVIDERS: ADMIT Internal Medicine; ATTEND Family Medicine
PROC: 30233N1 Transfusion of Nonautologous Red Blood Cells into Peripheral Vein, Percutaneous Approach (ICD-10-PCS; principal; 2022-01-03)
DX: S80.12XA Contusion of left lower leg, initial encounter (principal); N39.0 Urinary tract infection, site not specified; E87.1 Hypo-osmolality and hyponatremia; D62 Acute posthemorrhagic anemia; Z16.12 Extended spectrum beta lactamase (ESBL) resistance; E87.5 Hyperkalemia; F10.20 Alcohol dependence, uncomplicated; G20 Parkinson's disease; F31.9 Bipolar disorder, unspecified; J44.9 Chronic obstructive pulmonary disease, unspecified; I10 Essential (primary) hypertension; E11.42 Type 2 diabetes mellitus with diabetic polyneuropathy; E78.5 Hyperlipidemia, unspecified; I25.10 Atherosclerotic heart disease of native coronary artery without angina pectoris; R29.6 Repeated falls; R42 Dizziness and giddiness; Z66 Do not resuscitate; D72.829 Elevated white blood cell count, unspecified; F41.9 Anxiety disorder, unspecified; B96.20 Unspecified Escherichia coli [E. coli] as the cause of diseases classified elsewhere; W19.XXXA Unspecified fall, initial encounter; Y93.9 Activity, unspecified; Y92.89 Other specified places as the place of occurrence of the external cause; Y99.9 Unspecified external cause status
CPT/HCPCS: 36415; 36430; 71045-TC-FY; 72170-TC-FY; 73502-TC-LT-FY; 73552-TC-LT-FY; 73700-TC-RT; 75635-TC; 80048; 80053; 80061; 80164; 81003; 82272; 82533; 82962; 83540; 83550; 83735; 83930; 83935; 84155; 84165; 84300; 84443; 85025; 85027; 85610; 85730; 86850; 86900; 86901; 86922; 87086; 87186; 93005; 93010; 97116-GP; 97162-GP; 99285-25; C9803-CS; J1756; P9058; Q9967; U0003; U0005

== ENCOUNTER 2022-03-06 10:25 | Observation (INO) | payer OTHER ==
[2022-03-06 12:55] LABS: BASO % 0.7 % (0-2.0); EOS % 2.1 % (0-4.5); HEMATOCRIT 30.3 % (35.4-49); HEMOGLOBIN 10.3 GM/dL (11.7-16.9); MCH 29.5 pg (25.7-33.7); MCHC 34.1 g/dl (32.0-35.9); MEAN CELL VOLUME 86.3 fl (80-96); MEAN PLT VOLUME 7.8 fl (7.5-11.1); MONO % 10.7 % (3.8-10.2); NEUT % 64.5 % (42.8-82.8); PLATELET COUNT 189 10^3/uL (134-434); RBC 3.51 M/mm3 (4.00-5.60); RDW 18.9 % (11.9-15.9); WHITE BLOOD COUNT 7.8 K/mm3 (4.0-10.0)
[2022-03-06 13:02] LABS: INR 0.97 (0.83-1.09); PROTHROMBIN TIME (PATIENT) 11.1 SEC (9.7-13.0)
[2022-03-06 13:05] LABS: ACTIVATED PTT 32.1 SECONDS (25.2-36.5)
[2022-03-06 13:16] LABS: CALCIUM 8.7 mg/dL (8.5-10.1)
[2022-03-06 13:17] LABS: ALBUMIN 2.9 g/dl (3.4-5.0); BLOOD UREA NITROGEN 8.5 mg/dL (7-18)
[2022-03-06 13:20] LABS: CREATININE 0.7 mg/dL (0.55-1.3)
[2022-03-06 13:22] LABS: BILIRUBIN,TOTAL 0.4 mg/dL (0.2-1); TOT PROT 5.9 g/dl (6.4-8.2)
[2022-03-06] MEDS ORDERED: SODIUM CHLORIDE 0.9% 500 ML INFUS.BAG IV ONE (13:57)
[2022-03-07] MEDS ORDERED: oxyCODONE HCL 5 MG TABLET PO PRN (03:01)
[2022-03-07 04:59] VITALS: BMI 25.3
[2022-03-07] MEDS: INSULIN SLIDING SCALE (NOVOLOG) 1 VIAL SQ SCH ×4 (06:17→23:40)
[2022-03-07] MEDS: rOPINIRole HCL 0.25 MG TABLET PO SCH ×3 (06:32→21:41)
[2022-03-07 07:53] LABS: EOS % 1.8 % (0-4.5); HEMATOCRIT 28.1 % (35.4-49); HEMOGLOBIN 9.7 GM/dL (11.7-16.9); LYMPH % 22.8 % (8-40); MCH 29.8 pg (25.7-33.7); MCHC 34.6 g/dl (32.0-35.9); MEAN CELL VOLUME 85.9 fl (80-96); MEAN PLT VOLUME 7.8 fl (7.5-11.1); MONO % 14.5 % (3.8-10.2); NEUT % 59.9 % (42.8-82.8); PLATELET COUNT 162 10^3/uL (134-434); RBC 3.27 M/mm3 (4.00-5.60); RDW 19.3 % (11.9-15.9); WHITE BLOOD COUNT 6.2 K/mm3 (4.0-10.0)
[2022-03-07 08:22] LABS: MAGNESIUM 1.5 mg/dL (1.8-2.4)
[2022-03-07] MEDS: TAMSULOSIN HCL 0.4 MG CAP PO SCH (09:00)
[2022-03-07] MEDS: QUINAPRIL HCL 20 MG TABLET PO SCH ×2 (09:57→22:06)
[2022-03-07] MEDS: ASPIRIN 81 MG CHEWABLE TABLETS PO SCH (09:58)
[2022-03-07] MEDS: CLOPIDOGREL BISULFATE 75 MG TABLET (FP) PO SCH (09:58)
[2022-03-07] MEDS: FERROUS SO4 325 MG TABLET (FP) PO SCH (09:58)
[2022-03-07] MEDS: DIVALPROEX SODIUM 500 MG TABLET E.C. PO SCH ×2 (09:58→21:42)
[2022-03-07] MEDS: THIAMINE HCL 200 MG/2 ML VIAL IVPB SCH (17:45)
[2022-03-07] MEDS: ATORVASTATIN CA 40 MG TABLET (FP) PO SCH (21:41)
[2022-03-07] MEDS: MIRTAZAPINE 15 MG TABLET (FP) PO SCH (21:41)
[2022-03-07] MEDS ORDERED: MAGNESIUM SULFATE IN WATER 2 GM/50 ML IVPB IVPB ONE (21:44)
[2022-03-07] MEDS ORDERED: DIVALPROEX NA *ER* EXTEND REL 500 MG TABLET.SA (FP) PO SCH ×2 (22:00)
[2022-03-07] MEDS ORDERED: traZODone HCL 100 MG TABLET (FP) PO SCH (22:00)
[2022-03-08] MEDS: INSULIN SLIDING SCALE (NOVOLOG) 1 VIAL SQ SCH ×4 (06:00→21:57)
[2022-03-08] MEDS: rOPINIRole HCL 0.25 MG TABLET PO SCH ×3 (06:10→21:55)
[2022-03-08 07:40] LABS: BASO % 1.2 % (0-2.0); EOS % 2.2 % (0-4.5); HEMATOCRIT 26.3 % (35.4-49); HEMOGLOBIN 8.9 GM/dL (11.7-16.9); LYMPH % 28.6 % (8-40); MCH 29.3 pg (25.7-33.7); MCHC 33.8 g/dl (32.0-35.9); MEAN CELL VOLUME 86.7 fl (80-96); MEAN PLT VOLUME 8.2 fl (7.5-11.1); MONO % 13.2 % (3.8-10.2); NEUT % 54.8 % (42.8-82.8); PLATELET COUNT 160 10^3/uL (134-434); RBC 3.03 M/mm3 (4.00-5.60); RDW 19.1 % (11.9-15.9); WHITE BLOOD COUNT 6.8 K/mm3 (4.0-10.0)
[2022-03-08 07:56] LABS: CHLORIDE 101 mmol/L (98-107); SODIUM 135 mmol/L (136-145)
[2022-03-08 08:02] LABS: CALCIUM 8.2 mg/dL (8.5-10.1)
[2022-03-08 08:03] LABS: ALBUMIN 2.4 g/dl (3.4-5.0); ANION GAP 6 MMOL/L (8-16); BLOOD UREA NITROGEN 4.8 mg/dL (7-18); CO2 28 mmol/L (21-32); GLUCOSE,RANDOM 135 mg/dL (74-106)
[2022-03-08 08:05] LABS: SGPT/ALT < 6 U/L (13-61)
[2022-03-08 08:06] LABS: CREATININE 0.6 mg/dL (0.55-1.3); SGOT/AST 12 U/L (15-37)
[2022-03-08 08:08] LABS: ALK PHOS 50 U/L (45-117)
[2022-03-08 08:47] LABS: EPI CELLS 2 /uL (0-25.1); HYALINE CASTS 1 /uL (0-3.1); PH,URINE 7.5 (5.0-8.0); URINE APPEARANCE CLEAR; URINE BACTERIA 14 /uL (0-1359); URINE BILIRUBIN NEGATIVE (NEGATIVE); URINE COLOR YELLOW; URINE GLUCOSE (UA) NEGATIVE (NEGATIVE); URINE KETONE TRACE (NEGATIVE); URINE LEUK ESTERASE NEGATIVE (NEGATIVE); URINE NITRITE NEGATIVE (NEGATIVE); URINE PROTEIN NEGATIVE (NEGATIVE); URINE RBC 216 /uL (0-23.9); URINE WBC 2 /uL (0-25.8)
[2022-03-08] MEDS: FERROUS SO4 325 MG TABLET (FP) PO SCH (09:15)
[2022-03-08] MEDS: TAMSULOSIN HCL 0.4 MG CAP PO SCH (09:15)
[2022-03-08] MEDS: ASPIRIN 81 MG CHEWABLE TABLETS PO SCH (09:15)
[2022-03-08] MEDS: CLOPIDOGREL BISULFATE 75 MG TABLET (FP) PO SCH (09:15)
[2022-03-08] MEDS: MULTIVITAMINS (DAILY MVI) TABLET (FP) PO SCH (09:16)
[2022-03-08] MEDS: DIVALPROEX SODIUM 500 MG TABLET E.C. PO SCH ×2 (09:17→21:54)
[2022-03-08] MEDS: QUINAPRIL HCL 20 MG TABLET PO SCH ×2 (09:18→21:56)
[2022-03-08] MEDS: THIAMINE HCL 200 MG/2 ML VIAL IVPB SCH (09:18)
[2022-03-08] MEDS: PANTOPRAZOLE 40 MG TABLET PO SCH (14:38)
[2022-03-08 17:13] LABS: IRON SERUM 60 ug/dL (50-175); TOTAL IRON BINDING CAPACITY 250 ug/dL (250-450)
[2022-03-08] MEDS: ATORVASTATIN CA 40 MG TABLET (FP) PO SCH (21:52)
[2022-03-08] MEDS: MIRTAZAPINE 15 MG TABLET (FP) PO SCH (21:52)
[2022-03-09] MEDS: MIRTAZAPINE 15 MG TABLET (FP) PO SCH (00:27)
[2022-03-09] MEDS: rOPINIRole HCL 0.25 MG TABLET PO SCH ×3 (06:12→22:30)
[2022-03-09] MEDS: INSULIN SLIDING SCALE (NOVOLOG) 1 VIAL SQ SCH ×4 (06:12→22:00)
[2022-03-09 07:28] LABS: HEMATOCRIT 27.7 % (35.4-49); HEMOGLOBIN 9.5 GM/dL (11.7-16.9); MCH 29.8 pg (25.7-33.7); MCHC 34.3 g/dl (32.0-35.9); MEAN CELL VOLUME 86.9 fl (80-96); MEAN PLT VOLUME 8.1 fl (7.5-11.1); PLATELET COUNT 183 10^3/uL (134-434); RBC 3.19 M/mm3 (4.00-5.60); RDW 19.1 % (11.9-15.9); WHITE BLOOD COUNT 7.3 K/mm3 (4.0-10.0)
[2022-03-09] MEDS: TAMSULOSIN HCL 0.4 MG CAP PO SCH (09:22)
[2022-03-09] MEDS: PANTOPRAZOLE 40 MG TABLET PO SCH (09:22)
[2022-03-09] MEDS: THIAMINE HCL 100 MG TABLET (FP) PO SCH ×2 (09:22→22:30)
[2022-03-09] MEDS: FERROUS SO4 325 MG TABLET (FP) PO SCH (09:22)
[2022-03-09] MEDS: CLOPIDOGREL BISULFATE 75 MG TABLET (FP) PO SCH (09:22)
[2022-03-09] MEDS: MULTIVITAMINS (DAILY MVI) TABLET (FP) PO SCH (09:23)
[2022-03-09] MEDS: ASPIRIN 81 MG CHEWABLE TABLETS PO SCH (09:23)
[2022-03-09] MEDS: QUINAPRIL HCL 20 MG TABLET PO SCH ×2 (09:23→22:30)
[2022-03-09] MEDS: DIVALPROEX SODIUM 500 MG TABLET E.C. PO SCH ×2 (09:24→22:30)
[2022-03-09] MEDS: LORazepam 1 MG TABLET PO PRN (18:59)
[2022-03-09] MEDS: ATORVASTATIN CA 40 MG TABLET (FP) PO SCH (22:30)
[2022-03-10] MEDS: INSULIN SLIDING SCALE (NOVOLOG) 1 VIAL SQ SCH ×6 (00:39→21:13)
[2022-03-10] MEDS: DIVALPROEX SODIUM 500 MG TABLET E.C. PO SCH ×3 (00:40→21:19)
[2022-03-10] MEDS: MIRTAZAPINE 15 MG TABLET (FP) PO SCH ×2 (00:41→21:06)
[2022-03-10] MEDS: QUINAPRIL HCL 20 MG TABLET PO SCH ×3 (00:43→21:18)
[2022-03-10] MEDS: rOPINIRole HCL 0.25 MG TABLET PO SCH ×4 (00:43→21:07)
[2022-03-10] MEDS: THIAMINE HCL 100 MG TABLET (FP) PO SCH ×3 (00:45→21:06)
[2022-03-10] MEDS: ATORVASTATIN CA 40 MG TABLET (FP) PO SCH ×2 (00:45→21:06)
[2022-03-10] MEDS: LORazepam 1 MG TABLET PO PRN ×2 (02:30→09:41)
[2022-03-10 07:18] LABS: BASO % 0.9 % (0-2.0); EOS % 0.9 % (0-4.5); HEMATOCRIT 26.7 % (35.4-49); LYMPH % 31.1 % (8-40); MCH 29.5 pg (25.7-33.7); MCHC 33.8 g/dl (32.0-35.9); MEAN CELL VOLUME 87.3 fl (80-96); MEAN PLT VOLUME 8.1 fl (7.5-11.1); MONO % 14.6 % (3.8-10.2); NEUT % 52.5 % (42.8-82.8); PLATELET COUNT 181 10^3/uL (134-434); RBC 3.06 M/mm3 (4.00-5.60); RDW 19.6 % (11.9-15.9); WHITE BLOOD COUNT 7.5 K/mm3 (4.0-10.0)
[2022-03-10] MEDS: ASPIRIN 81 MG CHEWABLE TABLETS PO SCH (09:41)
[2022-03-10] MEDS: FERROUS SO4 325 MG TABLET (FP) PO SCH (09:41)
[2022-03-10] MEDS: PANTOPRAZOLE 20 MG TABLET PO SCH (09:47)
[2022-03-10] MEDS: TAMSULOSIN HCL 0.4 MG CAP PO SCH (09:47)
[2022-03-10] MEDS: MULTIVITAMINS (DAILY MVI) TABLET (FP) PO SCH (09:47)
[2022-03-10] MEDS: LORazepam 2 MG/ML SDV VIAL IM PRN ×2 (12:06→21:05)
[2022-03-10] MEDS: QUEtiapine FUMARATE 50 MG TABLET PO SCH ×2 (14:05→21:07)
[2022-03-11] MEDS: rOPINIRole HCL 0.25 MG TABLET PO SCH ×3 (06:13→22:37)
[2022-03-11] MEDS: INSULIN SLIDING SCALE (NOVOLOG) 1 VIAL SQ SCH ×4 (06:13→22:51)
[2022-03-11 07:42] LABS: CHLORIDE 100 mmol/L (98-107); SODIUM 133 mmol/L (136-145)
[2022-03-11 07:44] LABS: EOS % 1.6 % (0-4.5); HEMATOCRIT 29.4 % (35.4-49); HEMOGLOBIN 10.1 GM/dL (11.7-16.9); LYMPH % 26.6 % (8-40); MCH 29.9 pg (25.7-33.7); MCHC 34.2 g/dl (32.0-35.9); MEAN CELL VOLUME 87.3 fl (80-96); MEAN PLT VOLUME 8.2 fl (7.5-11.1); MONO % 10.5 % (3.8-10.2); NEUT % 60.3 % (42.8-82.8); PLATELET COUNT 220 10^3/uL (134-434); RBC 3.37 M/mm3 (4.00-5.60); RDW 19.6 % (11.9-15.9); WHITE BLOOD COUNT 8.1 K/mm3 (4.0-10.0)
[2022-03-11 07:47] LABS: CALCIUM 8.7 mg/dL (8.5-10.1)
[2022-03-11 07:48] LABS: ALBUMIN 2.7 g/dl (3.4-5.0); ANION GAP 7 MMOL/L (8-16); BLOOD UREA NITROGEN 11.9 mg/dL (7-18); CO2 26 mmol/L (21-32); GLUCOSE,RANDOM 149 mg/dL (74-106); MAGNESIUM 1.6 mg/dL (1.8-2.4)
[2022-03-11 07:51] LABS: CREATININE 0.6 mg/dL (0.55-1.3); SGOT/AST 18 U/L (15-37)
[2022-03-11 07:52] LABS: BILIRUBIN,TOTAL 0.7 mg/dL (0.2-1); TOT PROT 5.6 g/dl (6.4-8.2)
[2022-03-11 07:54] LABS: ALK PHOS 55 U/L (45-117); SGPT/ALT < 6 U/L (13-61)
[2022-03-11] MEDS: FERROUS SO4 325 MG TABLET (FP) PO SCH (11:12)
[2022-03-11] MEDS: ASPIRIN 81 MG CHEWABLE TABLETS PO SCH (11:12)
[2022-03-11] MEDS: THIAMINE HCL 100 MG TABLET (FP) PO SCH ×2 (11:12→22:36)
[2022-03-11] MEDS: PANTOPRAZOLE 20 MG TABLET PO SCH (11:13)
[2022-03-11] MEDS: MULTIVITAMINS (DAILY MVI) TABLET (FP) PO SCH (11:13)
[2022-03-11] MEDS: TAMSULOSIN HCL 0.4 MG CAP PO SCH (11:13)
[2022-03-11] MEDS: DIVALPROEX SODIUM 500 MG TABLET E.C. PO SCH ×2 (11:14→22:39)
[2022-03-11] MEDS: QUINAPRIL HCL 20 MG TABLET PO SCH ×2 (11:14→22:37)
[2022-03-11] MEDS: QUEtiapine FUMARATE 50 MG TABLET PO SCH ×2 (11:15→22:38)
[2022-03-11] MEDS: LORazepam 2 MG/ML SDV VIAL IM PRN ×2 (11:15→17:57)
[2022-03-11] MEDS: ATORVASTATIN CA 40 MG TABLET (FP) PO SCH (22:36)
[2022-03-11] MEDS: MIRTAZAPINE 15 MG TABLET (FP) PO SCH (22:36)
[2022-03-12] MEDS: LORazepam 2 MG/ML SDV VIAL IM PRN ×3 (02:41→17:26)
[2022-03-12] MEDS: rOPINIRole HCL 0.25 MG TABLET PO SCH ×3 (06:19→21:13)
[2022-03-12] MEDS: INSULIN SLIDING SCALE (NOVOLOG) 1 VIAL SQ SCH ×4 (06:24→21:42)
[2022-03-12] MEDS: THIAMINE HCL 100 MG TABLET (FP) PO SCH ×2 (09:32→21:11)
[2022-03-12] MEDS: MULTIVITAMINS (DAILY MVI) TABLET (FP) PO SCH (09:32)
[2022-03-12] MEDS: FERROUS SO4 325 MG TABLET (FP) PO SCH (09:32)
[2022-03-12] MEDS: TAMSULOSIN HCL 0.4 MG CAP PO SCH (09:32)
[2022-03-12] MEDS: PANTOPRAZOLE 20 MG TABLET PO SCH (09:33)
[2022-03-12] MEDS: QUINAPRIL HCL 20 MG TABLET PO SCH ×2 (09:33→21:13)
[2022-03-12] MEDS: ASPIRIN 81 MG CHEWABLE TABLETS PO SCH (09:33)
[2022-03-12] MEDS: DIVALPROEX SODIUM 500 MG TABLET E.C. PO SCH ×2 (09:34→21:12)
[2022-03-12] MEDS: QUEtiapine FUMARATE 50 MG TABLET PO SCH (09:34)
[2022-03-12 11:44] LABS: BASO % 0.9 % (0-2.0); HEMATOCRIT 30.4 % (35.4-49); HEMOGLOBIN 10.2 GM/dL (11.7-16.9); MCH 29.3 pg (25.7-33.7); MCHC 33.7 g/dl (32.0-35.9); MEAN CELL VOLUME 86.9 fl (80-96); MEAN PLT VOLUME 7.9 fl (7.5-11.1); NEUT % 61.1 % (42.8-82.8); PLATELET COUNT 224 10^3/uL (134-434); RBC 3.49 M/mm3 (4.00-5.60); RDW 20.1 % (11.9-15.9); WHITE BLOOD COUNT 7.7 K/mm3 (4.0-10.0)
[2022-03-12] MEDS ORDERED: QUEtiapine FUMARATE 50 MG TABLET PO SCH (13:15)
[2022-03-12] MEDS ORDERED: QUEtiapine FUMARATE 50 MG TABLET ONE (20:59)
[2022-03-12] MEDS: MIRTAZAPINE 15 MG TABLET (FP) PO SCH (21:11)
[2022-03-12] MEDS: ATORVASTATIN CA 40 MG TABLET (FP) PO SCH (21:11)
[2022-03-12] MEDS: QUEtiapine FUMARATE 100 MG TABLET (FP) PO SCH (21:12)
[2022-03-13] MEDS: INSULIN SLIDING SCALE (NOVOLOG) 1 VIAL SQ SCH ×4 (06:35→21:05)
[2022-03-13] MEDS: rOPINIRole HCL 0.25 MG TABLET PO SCH ×3 (06:35→21:03)
[2022-03-13] MEDS ORDERED: INSULIN (LEVEMIR) 100 UNITS/ML UNITS SQ ONE (07:20)
[2022-03-13] MEDS ORDERED: QUEtiapine FUMARATE 50 MG TABLET ONE ×2 (09:05→20:41)
[2022-03-13] MEDS: ASPIRIN 81 MG CHEWABLE TABLETS PO SCH (09:38)
[2022-03-13] MEDS: PANTOPRAZOLE 20 MG TABLET PO SCH (09:38)
[2022-03-13] MEDS: THIAMINE HCL 100 MG TABLET (FP) PO SCH ×2 (09:38→21:04)
[2022-03-13] MEDS: FERROUS SO4 325 MG TABLET (FP) PO SCH (09:38)
[2022-03-13] MEDS: QUEtiapine FUMARATE 100 MG TABLET (FP) PO SCH ×2 (09:38→21:02)
[2022-03-13] MEDS: MULTIVITAMINS (DAILY MVI) TABLET (FP) PO SCH (09:38)
[2022-03-13] MEDS: DIVALPROEX SODIUM 500 MG TABLET E.C. PO SCH ×2 (09:39→21:01)
[2022-03-13] MEDS: QUINAPRIL HCL 20 MG TABLET PO SCH ×2 (09:39→21:01)
[2022-03-13] MEDS: TAMSULOSIN HCL 0.4 MG CAP PO SCH (09:39)
[2022-03-13] MEDS: ATORVASTATIN CA 40 MG TABLET (FP) PO SCH (21:02)
[2022-03-13] MEDS: MIRTAZAPINE 15 MG TABLET (FP) PO SCH (21:02)
[2022-03-14] MEDS: rOPINIRole HCL 0.25 MG TABLET PO SCH ×3 (05:35→22:17)
[2022-03-14] MEDS: INSULIN SLIDING SCALE (NOVOLOG) 1 VIAL SQ SCH ×4 (06:25→22:12)
[2022-03-14] MEDS ORDERED: QUEtiapine FUMARATE 50 MG TABLET ONE ×2 (08:51→22:00)
[2022-03-14] MEDS: PANTOPRAZOLE 20 MG TABLET PO SCH (09:43)
[2022-03-14] MEDS: MULTIVITAMINS (DAILY MVI) TABLET (FP) PO SCH (09:44)
[2022-03-14] MEDS: FERROUS SO4 325 MG TABLET (FP) PO SCH (09:44)
[2022-03-14] MEDS: QUEtiapine FUMARATE 100 MG TABLET (FP) PO SCH ×2 (09:45→22:15)
[2022-03-14] MEDS: ASPIRIN 81 MG CHEWABLE TABLETS PO SCH (09:45)
[2022-03-14] MEDS: THIAMINE HCL 100 MG TABLET (FP) PO SCH ×2 (09:45→22:15)
[2022-03-14] MEDS: TAMSULOSIN HCL 0.4 MG CAP PO SCH (09:46)
[2022-03-14] MEDS: QUINAPRIL HCL 20 MG TABLET PO SCH ×2 (09:46→22:14)
[2022-03-14] MEDS: DIVALPROEX SODIUM 500 MG TABLET E.C. PO SCH ×2 (09:47→22:19)
[2022-03-14] MEDS: ATORVASTATIN CA 40 MG TABLET (FP) PO SCH (22:15)
[2022-03-14] MEDS: MIRTAZAPINE 15 MG TABLET (FP) PO SCH (22:15)
[2022-03-15] MEDS: INSULIN SLIDING SCALE (NOVOLOG) 1 VIAL SQ SCH ×4 (06:02→23:32)
[2022-03-15] MEDS: rOPINIRole HCL 0.25 MG TABLET PO SCH ×3 (06:02→23:16)
[2022-03-15] MEDS ORDERED: QUEtiapine FUMARATE 50 MG TABLET ONE ×2 (11:51→23:05)
[2022-03-15] MEDS: TAMSULOSIN HCL 0.4 MG CAP PO SCH (12:45)
[2022-03-15] MEDS: MULTIVITAMINS (DAILY MVI) TABLET (FP) PO SCH (12:45)
[2022-03-15] MEDS: FERROUS SO4 325 MG TABLET (FP) PO SCH (12:46)
[2022-03-15] MEDS: ASPIRIN 81 MG CHEWABLE TABLETS PO SCH (12:46)
[2022-03-15] MEDS: PANTOPRAZOLE 20 MG TABLET PO SCH (12:46)
[2022-03-15] MEDS: THIAMINE HCL 100 MG TABLET (FP) PO SCH ×2 (12:46→23:15)
[2022-03-15] MEDS: QUEtiapine FUMARATE 100 MG TABLET (FP) PO SCH ×2 (12:47→23:16)
[2022-03-15] MEDS: DIVALPROEX SODIUM 500 MG TABLET E.C. PO SCH ×2 (12:49→23:18)
[2022-03-15] MEDS: QUINAPRIL HCL 20 MG TABLET PO SCH ×2 (15:48→23:38)
[2022-03-15] MEDS: ATORVASTATIN CA 40 MG TABLET (FP) PO SCH (23:16)
[2022-03-15] MEDS: MIRTAZAPINE 15 MG TABLET (FP) PO SCH (23:18)
[2022-03-16] MEDS: INSULIN SLIDING SCALE (NOVOLOG) 1 VIAL SQ SCH ×3 (06:50→17:02)
[2022-03-16] MEDS: rOPINIRole HCL 0.25 MG TABLET PO SCH ×2 (06:50→14:50)
[2022-03-16] MEDS ORDERED: QUEtiapine FUMARATE 50 MG TABLET ONE ×2 (09:03→23:40)
[2022-03-16] MEDS: QUEtiapine FUMARATE 100 MG TABLET (FP) PO SCH (09:50)
[2022-03-16] MEDS: DIVALPROEX SODIUM 500 MG TABLET E.C. PO SCH (09:51)
[2022-03-16] MEDS: PANTOPRAZOLE 20 MG TABLET PO SCH (09:52)
[2022-03-16] MEDS: MULTIVITAMINS (DAILY MVI) TABLET (FP) PO SCH (09:52)
[2022-03-16] MEDS: TAMSULOSIN HCL 0.4 MG CAP PO SCH (09:53)
[2022-03-16] MEDS: ASPIRIN 81 MG CHEWABLE TABLETS PO SCH (09:53)
[2022-03-16] MEDS: QUINAPRIL HCL 20 MG TABLET PO SCH (09:53)
[2022-03-16] MEDS: FERROUS SO4 325 MG TABLET (FP) PO SCH (09:53)
[2022-03-16] MEDS: THIAMINE HCL 100 MG TABLET (FP) PO SCH (09:54)
[2022-03-16] MEDS ORDERED: INSULIN (NOVOLOG) ASPART 100 UNITS/ML 10ML VIAL ONE (16:59)
[2022-03-17] MEDS: ATORVASTATIN CA 40 MG TABLET (FP) PO SCH ×2 (00:24→22:28)
[2022-03-17] MEDS: THIAMINE HCL 100 MG TABLET (FP) PO SCH ×3 (00:24→22:29)
[2022-03-17] MEDS: MIRTAZAPINE 15 MG TABLET (FP) PO SCH ×2 (00:24→22:29)
[2022-03-17] MEDS: DIVALPROEX SODIUM 500 MG TABLET E.C. PO SCH ×3 (00:25→22:30)
[2022-03-17] MEDS: QUINAPRIL HCL 20 MG TABLET PO SCH ×3 (00:25→22:28)
[2022-03-17] MEDS: INSULIN SLIDING SCALE (NOVOLOG) 1 VIAL SQ SCH ×5 (00:26→22:30)
[2022-03-17] MEDS: rOPINIRole HCL 0.25 MG TABLET PO SCH ×4 (00:27→22:28)
[2022-03-17] MEDS: QUEtiapine FUMARATE 100 MG TABLET (FP) PO SCH ×3 (00:27→22:31)
[2022-03-17] MEDS ORDERED: QUEtiapine FUMARATE 50 MG TABLET ONE ×2 (08:56→22:21)
[2022-03-17] MEDS ORDERED: MINERAL OIL ENEMA 133 ML ENEMA RC ONE (08:58)
[2022-03-17] MEDS: PANTOPRAZOLE 20 MG TABLET PO SCH (09:42)
[2022-03-17] MEDS: TAMSULOSIN HCL 0.4 MG CAP PO SCH (09:42)
[2022-03-17] MEDS: MULTIVITAMINS (DAILY MVI) TABLET (FP) PO SCH (09:42)
[2022-03-17] MEDS: FERROUS SO4 325 MG TABLET (FP) PO SCH (09:43)
[2022-03-17] MEDS: ASPIRIN 81 MG CHEWABLE TABLETS PO SCH (09:43)
[2022-03-17] MEDS: POLYETHYLENE GLYCOL (HEALTHYLAX) 3350 17 GM PACKET PO SCH ×3 (10:36→22:29)
[2022-03-17] MEDS ORDERED: ACETAMINOPHEN 325 MG TABLET (FP) PO PRN (19:21)
[2022-03-18] MEDS: POLYETHYLENE GLYCOL (HEALTHYLAX) 3350 17 GM PACKET PO SCH ×2 (06:12→13:18)
[2022-03-18] MEDS: rOPINIRole HCL 0.25 MG TABLET PO SCH ×2 (06:12→13:18)
[2022-03-18] MEDS: INSULIN SLIDING SCALE (NOVOLOG) 1 VIAL SQ SCH ×3 (06:18→16:55)
[2022-03-18] MEDS: TAMSULOSIN HCL 0.4 MG CAP PO SCH (08:24)
[2022-03-18] MEDS ORDERED: QUEtiapine FUMARATE 50 MG TABLET ONE (09:52)
[2022-03-18] MEDS: DIVALPROEX SODIUM 500 MG TABLET E.C. PO SCH (10:12)
[2022-03-18] MEDS: QUEtiapine FUMARATE 100 MG TABLET (FP) PO SCH (10:12)
[2022-03-18] MEDS: MULTIVITAMINS (DAILY MVI) TABLET (FP) PO SCH (10:12)
[2022-03-18] MEDS: FERROUS SO4 325 MG TABLET (FP) PO SCH (10:13)
[2022-03-18] MEDS: PANTOPRAZOLE 20 MG TABLET PO SCH (10:13)
[2022-03-18] MEDS: QUINAPRIL HCL 20 MG TABLET PO SCH (10:14)
[2022-03-18] MEDS: ASPIRIN 81 MG CHEWABLE TABLETS PO SCH (10:14)
[2022-03-18] MEDS: THIAMINE HCL 100 MG TABLET (FP) PO SCH (10:14)
[2022-03-18 13:45] VITALS: BP 120/71; PULSE 80; TEMP 97.4
== END 2022-03-18 18:04 ==
LOC: JER 10:25 → JERBED 15:57 → J4W 03-07 04:14 → J7W 03-11 13:00
PROVIDERS: ADMIT Internal Medicine; ATTEND Family Medicine
PROC: 3E013VG Introduction of Insulin into Subcutaneous Tissue, Percutaneous Approach (ICD-10-PCS; principal; 2022-03-06)
PROC: 3E023GC Introduction of Other Therapeutic Substance into Muscle, Percutaneous Approach (ICD-10-PCS; 2022-03-06)
PROC: 3E033GC Introduction of Other Therapeutic Substance into Peripheral Vein, Percutaneous Approach (ICD-10-PCS; 2022-03-06)
PROC: 3E0337Z Introduction of Electrolytic and Water Balance Substance into Peripheral Vein, Percutaneous Approach (ICD-10-PCS; 2022-03-06)
DX: I25.10 Atherosclerotic heart disease of native coronary artery without angina pectoris (principal); R29.6 Repeated falls; E11.21 Type 2 diabetes mellitus with diabetic nephropathy; R13.10 Dysphagia, unspecified; F31.9 Bipolar disorder, unspecified; I10 Essential (primary) hypertension; E78.5 Hyperlipidemia, unspecified; I11.9 Hypertensive heart disease without heart failure; J44.9 Chronic obstructive pulmonary disease, unspecified; G20 Parkinson's disease; F14.21 Cocaine dependence, in remission; F41.9 Anxiety disorder, unspecified; F10.21 Alcohol dependence, in remission; Z96.651 Presence of right artificial knee joint; D50.9 Iron deficiency anemia, unspecified; S00.03XA Contusion of scalp, initial encounter; W18.39XA Other fall on same level, initial encounter; Z91.81 History of falling; Y93.89 Activity, other specified; Y92.092 Bedroom in other non-institutional residence as the place of occurrence of the external cause
CPT/HCPCS: 0241U-QW; 36415; 70450-TC; 70486-TC; 71045-TC-FY; 72125-TC; 72128-TC; 73562-TC-LT-FY; 73562-TC-RT-FY; 80048; 80053; 81003; 82728; 82962; 83540; 83550; 83735; 84484; 85025; 85027; 85610; 85730; 86850; 86900; 86901; 87086; 87186; 93005; 93010; 93306-TC; 93880-TC; 96365; 96372; 96375; 97116-GP; 97162-GP; 99285-25; C9803-CS; G0378; U0003; U0005

== ENCOUNTER 2022-08-17 10:50 | Day surgery (SDC) | payer OTHER ==
[2022-08-16 12:03] VITALS: BMI 25.4
[2022-08-17] MEDS ORDERED: PROPOFOL 80 ML ONE (11:55)
[2022-08-17 12:43] VITALS: RESP 18
[2022-08-17 12:45] VITALS: BP 144/86; PULSE 69; TEMP 98.1
== END 2022-08-17 12:45 ==
LOC: FASU-ENDO 10:50
PROVIDERS: ATTEND Internal Medicine Gastroenterology
PROC: 0DJD8ZZ Inspection of Lower Intestinal Tract, Via Natural or Artificial Opening Endoscopic (ICD-10-PCS; principal; 2022-08-17 11:47)
DX: Z12.11 Encounter for screening for malignant neoplasm of colon (principal); Z86.010 Personal history of colon polyps; K64.1 Second degree hemorrhoids
CPT/HCPCS: 82962

== ENCOUNTER 2022-12-03 08:37 | Day surgery (SDC) | payer OTHER ==
[2022-11-30 14:55] VITALS: BMI 25.4
[2022-12-03 10:25] VITALS: TEMP 97.9
[2022-12-03 10:53] VITALS: BP 116/71; PULSE 75; RESP 18
== END 2022-12-03 11:11 | disposition home or self-care (01) ==
LOC: FASU-ENDO 08:37
PROVIDERS: ATTEND Internal Medicine Gastroenterology
PROC: 0DJD8ZZ Inspection of Lower Intestinal Tract, Via Natural or Artificial Opening Endoscopic (ICD-10-PCS; principal; 2022-12-03 09:54)
DX: Z12.11 Encounter for screening for malignant neoplasm of colon (principal); K57.30 Diverticulosis of large intestine without perforation or abscess without bleeding; K64.1 Second degree hemorrhoids
CPT/HCPCS: 82962